=== PATIENT | male | born 1975 | race Caucasian/White ===

== ENCOUNTER → 2016-05-09 | Outpatient (CLI) | payer OTHER ==
[~2016-05-09] MED LIST: ATAZ300C PO; CRFUDL PO; GABA800T PO; LEVE1TAB57 PO; LORA-741 PO; LSN40 PO; LTHSR450 PO; MCRK20 PO; MULT-506 PO; PARO30TA PO; PROP20TA67 PO; PRT40 PO; QUET1TAB34 PO; RALT400T PO; RITO100T PO; TRVHP PO; [UNRECOGNIZED DRUG - CODE] PO
[2016-05-12 17:33] LABS: LSP % CELLS ANALYZED CD4 26 % (30-61); LSP ABSOLUTE CT CD4 642 cells/uL (490-1740); LSP LYMPHOCYTES ABSOLUTE 2479 cells/uL (850-3900)
== END | disposition home or self-care (01) ==
LOC: C.LAB1850 11:16
PROVIDERS: ATTEND Colon & Rectal Surgery
DX: B20 Human immunodeficiency virus [HIV] disease (principal); A63.0 Anogenital (venereal) warts

== ENCOUNTER → 2016-08-14 | Outpatient (CLI) | payer OTHER ==
[2016-08-14 10:35] LABS: BASO % 0.8 %; BASO ABS # 0.07 K/uL (0-0.2); COMPLETE YES; EOS % 1.7 %; HEMATOCRIT 42.4 % (42-52); IG% 0.3 %; LYMPH % 21.4 %; LYMPH ABS # 1.89 K/uL (1.2-3.4); MEAN CELL VOLUME 105.5 fL (80-100); MEAN CORPUSCULAR HEMOGLOBIN 37.8 pg (25-34); MEAN CORPUSCULAR HGB CONC 35.8 g/dl (32-36); MEAN PLATELET VOLUME 9.9 fL (7.4-10.4); MONO % 7.7 %; NEUT % 68.1 %; PLATELET COUNT 260 K/uL (130-400); RED BLOOD COUNT 4.02 M/uL (4.7-6.1); WHITE BLOOD COUNT 8.82 K/uL (4.8-10.8)
[2016-08-14 12:32] LABS: ALT/SGPT 26 U/L (12-78); BLOOD UREA NITROGEN 12 mg/dl (7-18); BUN/CREATININE RATIO 14.9 (10-20); CARBON DIOXIDE 28 mmol/L (21-32); CHLORIDE 103 mmol/L (98-107); CREATININE 0.79 mg/dl (0.60-1.40); GLUCOSE 107 mg/dl (70-99); POTASSIUM 4.7 mmol/L (3.5-5.1); SODIUM 136 mmol/L (136-145)
[2016-08-14 12:35] LABS: ALB/GLOB RATIO 1.3 (0.9-2); ALKALINE PHOSPHATASE 63 U/L (45-117); AST/SGOT 15 U/L (15-37)
[2016-08-14 12:37] LABS: CALCIUM 10.2 mg/dl (8.5-10.1)
[2016-08-21 19:53] LABS: LSP % CELLS ANALYZED CD4 21 % (30-61); LSP ABSOLUTE CT CD4 362 cells/uL (490-1740); LSP LYMPHOCYTES ABSOLUTE 1726 cells/uL (850-3900)
== END | disposition home or self-care (01) ==
LOC: C.LAB1850 09:38
PROVIDERS: ATTEND Internal Medicine Infectious Disease
DX: B20 Human immunodeficiency virus [HIV] disease (principal)

== ENCOUNTER → 2017-04-07 | Outpatient (CLI) | payer OTHER ==
[2017-04-07 10:02] LABS: BASO % 0.3 %; BASO ABS # 0.03 K/uL (0-0.2); COMPLETE YES; EOS % 2.1 %; HEMATOCRIT 41.1 % (42-52); IG% 0.2 %; LYMPH % 20.2 %; LYMPH ABS # 2.38 K/uL (1.2-3.4); MEAN CELL VOLUME 100.2 fL (80-100); MEAN CORPUSCULAR HEMOGLOBIN 35.1 pg (25-34); MONO % 7.2 %; PLATELET COUNT 220 K/uL (130-400); WHITE BLOOD COUNT 11.78 K/uL (4.8-10.8)
[2017-04-07 10:30] LABS: ALT/SGPT 20 U/L (12-78); AST/SGOT 16 U/L (15-37); BLOOD UREA NITROGEN 18 mg/dl (7-18); BUN/CREATININE RATIO 19.7 (10-20); CALCIUM 9.6 mg/dl (8.5-10.1); CARBON DIOXIDE 27 mmol/L (21-32); CHLORIDE 100 mmol/L (98-107); CREATININE 0.92 mg/dl (0.60-1.40); GLUCOSE 86 mg/dl (70-99); POTASSIUM 4.3 mmol/L (3.5-5.1); SODIUM 130 mmol/L (136-145)
[2017-04-07 10:33] LABS: ALB/GLOB RATIO 1.1 (0.9-2); ALKALINE PHOSPHATASE 60 U/L (45-117)
[2017-04-09 21:27] LABS: LSP % CELLS ANALYZED CD4 22 % (30-61); LSP ABSOLUTE CT CD4 466 cells/uL (490-1740); LSP LYMPHOCYTES ABSOLUTE 2149 cells/uL (850-3900)
== END | disposition home or self-care (01) ==
LOC: C.LAB1850 09:22
PROVIDERS: ATTEND Internal Medicine Infectious Disease
DX: B20 Human immunodeficiency virus [HIV] disease (principal)

== ENCOUNTER → 2017-08-11 | Outpatient (CLI) | payer OTHER ==
[2017-08-11 12:20] LABS: BASO % 0.3 %; BASO ABS # 0.04 K/uL (0-0.2); EOS % 1.3 %; EOS ABS # 0.16 K/uL (0-0.5); HEMATOCRIT 43.3 % (42-52); HEMOGLOBIN 15.3 g/dL (14.0-18.0); IG# 0.03 K/uL (0.00-0.02); LYMPH % 14.7 %; LYMPH ABS # 1.78 K/uL (1.2-3.4); MEAN CELL VOLUME 100.2 fL (80-100); MEAN CORPUSCULAR HEMOGLOBIN 35.4 pg (25-34); MEAN CORPUSCULAR HGB CONC 35.3 g/dl (32-36); MONO % 5.9 %; MONO ABS # 0.72 K/uL (0.11-0.59); NEUT % 77.6 %; NEUT ABS # 9.38 K/uL (1.4-6.5); PLATELET COUNT 271 K/uL (130-400); RED CELL DISTRIBUTION WIDTH CV 13.9 % (11.5-14.5); RED CELL DISTRIBUTION WIDTH SD 51.5 fL (36.4-46.3); WHITE BLOOD COUNT 12.11 K/uL (4.8-10.8)
[2017-08-11 12:50] LABS: ALBUMIN 4.3 gm/dl (3.4-5.0); ALT/SGPT 22 U/L (12-78); AST/SGOT 13 U/L (15-37); BLOOD UREA NITROGEN 7 mg/dl (7-18); CALCIUM 9.7 mg/dl (8.5-10.1); CARBON DIOXIDE 27 mmol/L (21-32); CHOLESTEROL 147 mg/dl (0-200); CREATININE 0.95 mg/dl (0.60-1.40); GLUCOSE 101 mg/dl (70-99); POTASSIUM 3.9 mmol/L (3.5-5.1); SODIUM 134 mmol/L (136-145)
[2017-08-11 12:53] LABS: ALKALINE PHOSPHATASE 83 U/L (45-117); LDL CHOLESTEROL CALCULATED 69 mg/dl; TOTAL PROTEIN 8.2 gm/dl (6.4-8.2)
[2017-08-11 12:59] LABS: HEMOGLOBIN A1C 5.5 % (4.5-5.6)
[2017-08-12 21:35] LABS: LSP % CELLS ANALYZED CD4 24 % (30-61); LSP ABSOLUTE CT CD4 427 cells/uL (490-1740)
== END | disposition home or self-care (01) ==
LOC: C.LAB1850 10:08
PROVIDERS: ATTEND Internal Medicine Infectious Disease
DX: B20 Human immunodeficiency virus [HIV] disease (principal); F90.9 Attention-deficit hyperactivity disorder, unspecified type

== ENCOUNTER → 2017-11-17 | Outpatient (CLI) | payer OTHER ==
[~2017-11-17] MED LIST changes: +LISI40TA3 PO; -LSN40 PO; +PANT1TAB4 PO; -PRT40 PO
[2017-11-17 12:36] LABS: BASO % 0.3 %; BASO ABS # 0.03 K/uL (0-0.2); EOS ABS # 0.18 K/uL (0-0.5); HEMATOCRIT 40.8 % (42-52); HEMOGLOBIN 13.6 g/dL (14.0-18.0); IG# 0.01 K/uL (0.00-0.02); LYMPH % 19.8 %; LYMPH ABS # 1.78 K/uL (1.2-3.4); MEAN CELL VOLUME 109.7 fL (80-100); MEAN CORPUSCULAR HEMOGLOBIN 36.6 pg (25-34); MEAN CORPUSCULAR HGB CONC 33.3 g/dl (32-36); MEAN PLATELET VOLUME 9.5 fL (7.4-10.4); MONO % 5.9 %; MONO ABS # 0.53 K/uL (0.11-0.59); NEUT % 71.9 %; NEUT ABS # 6.48 K/uL (1.4-6.5); PLATELET COUNT 311 K/uL (130-400); RED CELL DISTRIBUTION WIDTH CV 15.8 % (11.5-14.5); RED CELL DISTRIBUTION WIDTH SD 63.7 fL (36.4-46.3); WHITE BLOOD COUNT 9.01 K/uL (4.8-10.8)
[2017-11-17 12:58] LABS: ALKALINE PHOSPHATASE 69 U/L (45-117); ALT/SGPT 23 U/L (12-78); AST/SGOT 14 U/L (15-37); BLOOD UREA NITROGEN 6 mg/dl (7-18); CALCIUM 9.6 mg/dl (8.5-10.1); CARBON DIOXIDE 26 mmol/L (21-32); CREATININE 0.98 mg/dl (0.60-1.40); GLUCOSE 124 mg/dl (70-99); POTASSIUM 4.4 mmol/L (3.5-5.1); SODIUM 135 mmol/L (136-145)
[2017-11-20 16:37] LABS: LSP % CELLS ANALYZED CD4 24 % (30-61); LSP ABSOLUTE CT CD4 407 cells/uL (490-1740)
== END | disposition home or self-care (01) ==
LOC: C.LAB1850 10:59
PROVIDERS: ATTEND Internal Medicine Infectious Disease
DX: B20 Human immunodeficiency virus [HIV] disease (principal)

== ENCOUNTER → 2017-11-18 | Outpatient (CLI) | payer OTHER | LOC: C.LABBFT 15:45 | PROVIDERS: ATTEND Internal Medicine Infectious Disease | DX: B20 Human immunodeficiency virus [HIV] disease (principal) ==

== ENCOUNTER → 2017-12-12 | Day surgery (SDC) | payer OTHER ==
[2017-12-08 08:59] VITALS: BMI 21.0
[~2017-12-12] VITALS: Ht 175.3 cm; Wt 65.9 kg
[~2017-12-12] MED LIST changes: +CLON1TAB10 PO; -CRFUDL PO; +CYAN100020 PO; +FLUO40CA8 PO; -GABA800T PO; -LEVE1TAB57 PO; +LIDOCAINE HCL 2% 2 ML VIAL (20MG/ML) ONE; -LISI40TA3 PO; -LORA-741 PO; -MCRK20 PO; +MELATAB2 PO; -MULT-506 PO; -PARO30TA PO; +PROPOFOL IV EMULSION 10 MG/ML 20 ML VIAL ONE; +QUET1TAB11 PO; -QUET1TAB34 PO; +SODIUM CHLORIDE 0.9% 500ML 500 ML IV ONE; +ST J1CAP PO
[2017-12-12 08:16] VITALS: Ht 175.3 cm; Wt 65.9 kg
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
--- NOTE | 2017-12-12 09:34 | Discharge Instructions ---
Endoscopy Patient Instructions Date / Procedure(s) Performed Dec 12, 2017. Colonoscopy, EGD Allergy Information Coded Allergies: Acetaminophen (Verified Adverse Reaction, Unknown, NO TYLENOL DUE TO ABNORMAL LIVER TESTS, 12/12/17) Discharge Date / Findings Dec 12, 2017. EGD: Gastritis s/p biopsies, Esophagitis s/p biopsies Colonoscopy: Random colon biopsies, Questionable condyloma at anal verge s/p biopsies Medication Instructions OK to resume all medications today as prescribed Reported Home Medications Medications Dose Route/Sig Max Daily Dose Days Date Category Melatonin Maximum Strengt (Melatonin) 5 Mg Tab 2 Tab PO HS 12/08/[address] [place] Wort ([place]'s Wort ([place] Perf) 300 Mg Cap 3 Tab PO BID 12/08/17 Reported Prozac (Fluoxetine HCl) 40 Mg Cap 40 Mg PO QAM 12/08/17 Reported Vitamin B12 (Cyanocobalamin) 1,000 Mcg Tab 1 Tab PO DAILY 12/08/17 Reported Klonopin (Clonazepam) 1 Mg Tab 1 Mg PO DAILY PRN 12/08/17 Reported Seroquel (Quetiapine Fumarate) 300 Mg Tab 300 Mg PO HS 12/08/17 Reported Pantoprazole Sodium (Pantoprazole) 40 Mg Tab 40 Mg PO BID 03/02/16 Rx Fluconazole 40 Mg/Ml Susp 100 Mg PO QAM 14 03/02/16 Rx Norvir (Ritonavir) 100 Mg Tab 1 Tab PO HS 09/13/15 Reported [place] (Atazanavir Sulfate) 300 Mg Cap 1 Cap PO HS 06/12/15 Reported [place]ent[place] (Raltegravir Potassium) 400 Mg Tab 400 Mg PO BID 06/12/15 Reported [place] Carbonate ER ([place] Carbonate) 450 Mg Tabcr 450 Mg PO BID 08/28/13 Reported Inderal (Propranolol HCl) 20 Mg Tab 20 Mg PO BID 10/31/08 Reported Truvada 200/300MG (Emtricitabine/Tenofovir) Tab 1 Tab PO HS 10/17/08 Reported Provider Instructions Activity Restrictions - No exercising or heavy lifting for 24 hours. - Do not drink alcohol the day of the procedure. - Do not drive a car or operate machinery until the day after the procedure. - Do not make any important decisions or sign important papers in 24 hours after the procedure. Following Day: - Return to full activity which may include returning to work/school. Diet Start your diet with liquids and light foods (jello, soup, juice, toast). Then eat your usual diet if not nauseated. Treatment For Common After Affects For mild abdominal pain, bloating, or excessive gas: - Rest - Eat lightly - Lie on right side Follow-Up Information Follow-up with DR. OCHOA as scheduled Anesthesia Information What You Should Know You have had a procedure that required some medicine to reduce anxiety and discomfort. This treatment is called moderate sedation. After receiving the treatment, you may be sleepy, but you will be able to breathe on your own. The effects of the treatment may last for several hours. Follow these instructions along with Activity/Diet recommendations noted above: * Do NOT do anything where dizziness or clumsiness would be dangerous. * Rest quietly at home today, then you can be up and about tomorrow. * Have a responsible person stay with you the rest of today. * You may have had an I.V. today. If so, you may take the dressing off later today. Recommendations Call your doctor if: * Trouble breathing * Continuous vomiting for more than 24 hours * Temperature above 101 degrees * Severe abdominal pain or bloating * Pain not relieved by pain medicine ordered * There is increased drainage or redness from any incision * A large amount of rectal bleeding greater than 2-3 tablespoons. (If you had a polyp/s removed or have hemorrhoids, a small amount of blood - from the rectum is to be expected.) * You have any unanswered questions or concerns. IN THE EVENT OF A SERIOUS EMERGENCY, GO TO THE NEAREST EMERGENCY ROOM Your discharge instructions were prepared by provider Giovany Johnson. Patient Instructions Signature Page Joe Kearney Patient (or Guardian) Signature/Date: I have read and understand the instructions given to me by my caregivers. Caregiver/RN/Doctor Signature/Date: The above-named patient and/or guardian has received patient instructions on this date. + Original Patient Signature Page (only) stays with chart. Please make copy for patient.
--- NOTE | 2017-12-12 09:38 | GI REPORT ---
Patient Name: Joe Kearney Procedure Date: 12/12/2017 8:48 AM Date of : 1975 Admit Type: Outpatient Age: 42 Gender: Male Attending MD: Giovany Johnson DO Procedure: Upper GI endoscopy Providers: Giovany Johnson DO Referring MD: Yoan Valente Indications: Heartburn, Follow-up of esophagitis Medicines: Monitored Anesthesia Care Complications: No immediate complications. Estimated Blood Loss: Estimated blood loss: none. Procedure: Pre-Anesthesia Assessment: - Prior to the procedure, a History and Physical was performed, and patient medications and allergies were reviewed. The patient's tolerance of previous anesthesia was also reviewed. The risks and benefits of the procedure and the sedation options and risks were discussed with the patient. All questions were answered, and informed consent was obtained. Prior Anticoagulants: The patient has taken no previous anticoagulant or antiplatelet agents. ASA Grade Assessment: III - A patient with severe systemic disease. After reviewing the risks and benefits, the patient was deemed in satisfactory condition to undergo the procedure. After obtaining informed consent, the endoscope was passed under direct vision. Throughout the procedure, the patient's blood pressure, pulse, and oxygen saturations were monitored continuously. The scope was introduced through the mouth, and advanced to the second part of duodenum. The upper GI endoscopy was accomplished without difficulty. The patient tolerated the procedure well. Findings: Mildly severe esophagitis with no bleeding was found. Biopsies were taken with a cold forceps for histology. Localized mild inflammation characterized by erythema was found in the gastric antrum. Biopsies were taken with a cold forceps for histology. The examined duodenum was normal. Impression: - Mildly severe chronic esophagitis. Biopsied. - Gastritis. Biopsied. - Normal examined duodenum. Recommendation: - Resume previous diet. - Continue present medications. - Await pathology results. - Return to primary care physician as previously scheduled. Giovany Johnson DO 12/12/2017 9:37:45 AM This report has been signed electronically. Note Initiated On: 12/12/2017 8:48 AM Number of Addenda: 0 I attest to the content of the Intraoperative Record and orders documented therein, exceptions below {[id number]}
--- NOTE | 2017-12-12 09:41 | GI REPORT ---
Patient Name: Joe Kearney Procedure Date: 12/12/2017 8:56 AM Date of : 1975 Admit Type: Outpatient Age: 42 Gender: Male Attending MD: Giovany Johnson DO Procedure: Colonoscopy Providers: Giovany Johnson DO Referring MD: Yoan Valente Indications: Chronic diarrhea Medicines: Monitored Anesthesia Care Complications: No immediate complications. Estimated Blood Loss: Estimated blood loss: none. Procedure: Pre-Anesthesia Assessment: - Prior to the procedure, a History and Physical was performed, and patient medications and allergies were reviewed. The patient's tolerance of previous anesthesia was also reviewed. The risks and benefits of the procedure and the sedation options and risks were discussed with the patient. All questions were answered, and informed consent was obtained. Prior Anticoagulants: The patient has taken no previous anticoagulant or antiplatelet agents. ASA Grade Assessment: III - A patient with severe systemic disease. After reviewing the risks and benefits, the patient was deemed in satisfactory condition to undergo the procedure. After I obtained informed consent, the scope was passed under direct vision. Throughout the procedure, the patient's blood pressure, pulse, and oxygen saturations were monitored continuously. The scope was introduced through the anus and advanced to the terminal ileum. The colonoscopy was performed without difficulty. The patient tolerated the procedure well. The quality of the bowel preparation was good. The terminal ileum, ileocecal valve, appendiceal orifice, and rectum were photographed. Findings: The perianal and digital rectal examinations were normal. Few 5 mm condylomata were found. This was biopsied with a cold forceps for histology. Several random biopsies were obtained with cold forceps for histology in the entire colon. The exam was otherwise without abnormality on direct and retroflexion views. Impression: - Condylomata. Biopsied. - The examination was otherwise normal on direct and retroflexion views. - Several random biopsies were obtained in the entire colon. Recommendation: - Resume previous diet. - Continue present medications. - Await pathology results. - Return to primary care physician as previously scheduled. Giovany Johnson DO 12/12/2017 9:40:52 AM This report has been signed electronically. Note Initiated On: 12/12/2017 8:56 AM Number of Addenda: 0 I attest to the content of the Intraoperative Record and orders documented therein, exceptions below {[id number]}
[2017-12-12 09:45] VITALS: BP 125/88; PULSE 68; O2SAT 99
--- NOTE | 2017-12-12 09:51 | Anesthesiology Progress Note ---
Anesthesia Post Op Note Date & Time Dec 12, 2017 at 09:51 Vital Signs Pain Intensity: 0 Vital Signs Past 12 Hours Date Time Temp Pulse Resp B/P (MAP) Pulse Ox O2 Delivery O2 Flow Rate FiO2 12/12/17 09:30 69 20 110/77 (88) 98 Room Air 12/12/17 09:15 36.7 67 16 92/60 (71) 98 Room Air 12/12/17 08:24 36.4 72 18 117/84 (95) 97 Room Air Notes Mental Status: alert / awake / arousable, participated in evaluation Pt Amnestic to Procedure: Yes Nausea / Vomiting: adequately controlled Pain: adequately controlled Airway Patency, RR, SpO2: stable & adequate BP & HR: stable & adequate Hydration State: stable & adequate Anesthetic Complications: no major complications apparent
== END | disposition home or self-care (01) ==
LOC: C.GI 07:47
PROVIDERS: ATTEND Internal Medicine
DX: K62.82 Dysplasia of anus (principal); K21.0 Gastro-esophageal reflux disease with esophagitis; R19.7 Diarrhea, unspecified; D75.9 Disease of blood and blood-forming organs, unspecified; J45.909 Unspecified asthma, uncomplicated; I10 Essential (primary) hypertension; F17.200 Nicotine dependence, unspecified, uncomplicated; E78.00 Pure hypercholesterolemia, unspecified; F31.9 Bipolar disorder, unspecified; F10.10 Alcohol abuse, uncomplicated; Z88.6 Allergy status to analgesic agent; Z21 Asymptomatic human immunodeficiency virus [HIV] infection status; K29.70 Gastritis, unspecified, without bleeding

== ENCOUNTER 2018-07-07 05:13 | Inpatient (IN) ==
--- NOTE | 2018-06-23 19:49 | PAT Medication Instructions ---
Medication Instructions Date of Service June 24, 2018 Home Medications Medication Instructions Recorded clonazepam 1 mg PO DAILY PRN #0 tab 03/17/18 dolutegravir 50 mg PO DIRECTED emtricitabine-tenofovir (TDF) 1 tab PO QAM lithium carbonate 450 mg PO BID melatonin 10 mg PO HS pantoprazole 40 mg PO QAM propranolol 20 mg PO BID quetiapine 300 mg PO HS ritonavir 100 mg PO QAM clonazepam 1 mg PO DAILY NEEDED Take morning of surgery With a small sip of water, OTHERWISE NOTHING TO EAT OR DRINK AFTER MIDNIGHT: clonazepam 1 mg PO DAILY NEEDED ritonavir 100 mg PO QAM pantoprazole 40 mg PO QAM propranolol 20 mg PO BID emtricitabine-tenofovir (TDF) 1 tab PO QAM lithium carbonate 450 mg PO BID Take evening before surgery propranolol 20 mg PO BID quetiapine 300 mg PO HS lithium carbonate 450 mg PO BID melatonin 10 mg PO HS Other Notes If you have any questions please call us at [phone] or [phone] or [phone] or [phone]
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
--- NOTE | 2018-06-24 09:44 | XRay Report ---
XR chest Pre-admission PA/Lat CLINICAL HISTORY: pat preoperative evaluation COMPARISON STUDY: 03/15/2018 FINDINGS: The bones soft tissues and hemidiaphragms are normal. The cardiomediastinal silhouette is n ormal. The lungs are clear. The pulmonary vasculature is normal. Mild emphysematous change IMPRESSION: Negative chest. Mild emphysematous change The above report was generated using voice recognition software. It may contain grammatical, syntax or spelling errors. Electronically signed by: Joe Hong M.D. 06/24/2018 9:43 AM
[2018-06-24 09:47] LABS: Basophils # (auto) 0.03 K/uL (0-0.2); Basophils % (auto) 0.7 %; Eosinophils # (auto) 0.19 K/uL (0-0.5); Eosinophils % (auto) 4.4 %; Hematocrit (blood only) 39.6 % (42-52); Hemoglobin 13.5 g/dL (14.0-18.0); Immature Granulocytes # (auto) 0.01 K/uL (0.00-0.02); Immature Granulocytes % (auto) 0.2 %; Lymphocytes # (auto) 1.84 K/uL (1.2-3.4); Lymphocytes % (auto) 42.5 %; Mean Corpuscular Hgb Conc 34.1 g/dL (32-36); Mean Corpuscular Volume 109.4 fL (80-100); Mean Platelet Volume 9.8 fL (7.4-10.4); Monocytes # (auto) 0.35 K/uL (0.11-0.59); Monocytes % (auto) 8.1 %; Neutrophils # (auto) 1.91 K/uL (1.4-6.5); Neutrophils % (auto) 44.1 %; Platelet Count 301 K/uL (130-400); RDW Coefficient of Variation 13.5 % (11.5-14.5); RDW Standard Deviation 54.2 fL (36.4-46.3); Red Blood Count 3.62 M/uL (4.7-6.1); White Blood Count 4.33 K/uL (4.8-10.8)
[2018-06-24 09:58] LABS: BUN Creatinine Ratio 6.6 (10-20); Blood Urea Nitrogen 6 mg/dl (7-18); C Reactive Protein < 0.29 mg/dl (0-0.29); Calcium 9.5 mg/dl (8.5-10.1); Carbon Dioxide 31 mmol/L (21-32); Chloride 105 mmol/L (98-107); Creatinine Clr Calc Pharmacy 102.4 ml/min; Est GFR (African American) 116.1; Est GFR (Non-African American) 100.2; Glucose 101 mg/dl (70-99); Potassium 4.2 mmol/L (3.5-5.1); Sodium 138 mmol/L (136-145)
[2018-06-24 10:09] LABS: Partial Thromboplastin Ratio 1.1; Partial Thromboplastin Time 28.6 Seconds (21.0-31.0); Prothrombin Time 9.8 Seconds (9.0-12.0)
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
[~2018-07-07 05:13] MED LIST changes: -ATAZ300C PO; -CLON1TAB10 PO; -CYAN100020 PO; -FLUO40CA8 PO; -LIDOCAINE HCL 2% 2 ML VIAL (20MG/ML) ONE; -LTHSR450 PO; -MELATAB2 PO; -PANT1TAB4 PO; -PROP20TA67 PO; -PROPOFOL IV EMULSION 10 MG/ML 20 ML VIAL ONE; -QUET1TAB11 PO; -RALT400T PO; -RITO100T PO; -SODIUM CHLORIDE 0.9% 500ML 500 ML IV ONE; -ST J1CAP PO; -TRVHP PO; -[UNRECOGNIZED DRUG - CODE] PO; +[UNRECOGNIZED DRUG - REMARK] SCH
[2018-07-07] MEDS ORDERED: LR 500ML BOLUS, THEN 15ML/HR IV SCH (06:00)
[2018-07-07] MEDS ORDERED: ACETAMINOPHEN 500 MG TAB PO SCH (06:00)
[2018-07-07] MEDS ORDERED: METOCLOPRAMIDE HCL 10 MG TABLET PO SCH (06:00)
[2018-07-07] MEDS ORDERED: LR 60ML/HR IV SCH (06:00)
[2018-07-07] MEDS ORDERED: GABAPENTIN 300 MG x 3 PO SCH (06:00)
[2018-07-07] MEDS ORDERED: TRANEXAMIC ACID 1,000 MG **IV Pre-op IV SCH (06:00)
[2018-07-07] MEDS ORDERED: FAMOTIDINE 20 MG TAB PO SCH (06:00)
[2018-07-07] MEDS ORDERED: CEFAZOLIN 2000MG 2,000 MG/15 ML SYR IV SCH (06:00)
[2018-07-07] MEDS ORDERED: SCOPOLAMINE 1.5 MG TDSY TD SCH (06:00)
[2018-07-07] MEDS ORDERED: LIDOCAINE HCL 2% 2 ML VIAL/AMP(20MG/ML) INFIL ONE (06:28)
[2018-07-07] MEDS ORDERED: PROPOFOL IV EMULSION 10 MG/ML 20 ML VIAL IV ONE ×3 (06:28→08:07)
[2018-07-07] MEDS ORDERED: MIDAZOLAM HCL 1 MG/ML 2ML VIAL ONE (06:28)
[2018-07-07] MEDS ORDERED: KETAMINE HCL INJ 50 MG/ML 10 ML VIAL ONE (06:28)
[2018-07-07] MEDS ORDERED: fentaNYL citrate 100 MCG/2 ML VIAL ONE (06:28)
[2018-07-07] MEDS ORDERED: BUPIVACAINE 0.5 % 5 MG/1 ML PF 10ML VIAL ONE (06:31)
[2018-07-07] MEDS ORDERED: BACITRACIN INJ 50,000 UNIT VIAL ONE (06:36)
[2018-07-07] MEDS ORDERED: BUPIVACAINE/EPINEPHRINE 0.5% MPF 1:200,000 30 ML VIAL ONE (06:36)
[2018-07-07] MEDS ORDERED: MoRPHine SULFATE PF 1 MG/ML 10 ML AMP/VIAL ONE (06:45)
--- NOTE | 2018-07-07 06:51 | History & Physical Bridge Note ---
Date of Service July 07, 2018 History & Physical Bridge Note I have examined the patient, reviewed the History & Physical and in the interval since the performance of the History & Physical I have noted the following changes of clinical significance: no changes noted
[2018-07-07] MEDS ORDERED: NALOXONE HCL 0.4 MG/1 ML VIAL/CARP IV PRN ×2 (07:48→10:01)
[2018-07-07] MEDS ORDERED: ATROPINE SULFATE 0.1 MG/ML 10ML SYR IV PRN (07:48)
[2018-07-07] MEDS ORDERED: DiphenhydrAMINE HCL 50 MG/ML VIAL IV PRN (07:48)
[2018-07-07] MEDS ORDERED: NALOXONE HCL 1 MG in SODIUM CHLORIDE 0.9% 1000ML 1,000 ML IV PRN (07:48)
[2018-07-07] MEDS ORDERED: NALBUPHINE HCL INJ 10 MG/ML AMP IV PRN (07:48)
[2018-07-07] MEDS ORDERED: ePHEDrine sulfate 50 MG/ML AMP IV PRN ×2 (07:48)
[2018-07-07] MEDS ORDERED: MoRPHine SULFATE PF 1 MG/ML 10 ML AMP/VIAL INT SPINAL ONE (07:48)
[2018-07-07] MEDS ORDERED: NALOXONE HCL 0.08 MG in SYRINGE 1.8 ML IV PRN (07:48)
[2018-07-07] MEDS ORDERED: LACTATED RINGER'S 500 ML IV PRN (07:48)
[2018-07-07] MEDS ORDERED: NO NARCOTICS OR SEDATIVES SCH (08:00)
[2018-07-07] MEDS ORDERED: SODIUM CHLORIDE 0.9% 1000ML 1,000 ML IV SCH (08:00)
[2018-07-07] MEDS ORDERED: ePHEDrine sulfate 50 MG/ML SYR ONE (08:02)
--- NOTE | 2018-07-07 08:31 | Post Operative Brief Note ---
Immediate Post Op Note v1 Date of Surgery July 07, 2018 Pre & Post Diagnosis Operation Date: 07/07/18 07:00 Pre-Op Diagnosis: Right Hip Avascular Necrosis Post-Op Diagnosis: Right Hip Avascular Necrosis Procedure Operation Date: 07/07/18 07:00 Actual Procedures p Right Total Hip Arthroplasty--uncemented(Right) - Baudilio Álvarez MD Surgeon Baudilio Álvarez MD Orchid Hand Khalida, PAC Estimated Blood Loss 200 Findings Consistent with Post-Op Diagnosis Fluids 1300 cc Specimens Right Femoral Head Drains Alcocer Catheter (16 Sudanese Alcocer catheter inserted by Lyndon Gaxiola PA-C without difficulty, clear yellow urine obtained, output to be monitored by anesthesia) Anesthesia Type Spinal MAC Complications none Disposition Accompanied Patient To Recovery: Yes Disposition: Recovery Room
--- NOTE | 2018-07-07 09:01 | XRay Report ---
XR hip 1V RT w pelvis CLINICAL HISTORY: IN PACU - A/P PELVIS and LATERAL HIP postoperative COMPARISON: 01/16/2018 DISCUSSION: Interval placement of a total right hip arthroplasty. Good contact between prosthetic and underlying bone. Expected soft tissue postoperative change expected postoperative soft tissue change IMPRESSION: Anatomic alignment post total right hip arthroplasty. The above report was generated using voice recognition software. It may contain grammatical, syntax or spelling errors. Electronically signed by: Joe Hong M.D. 07/07/2018 9:00 AM
--- NOTE | 2018-07-07 09:17 | Anesthesiology Progress Note ---
Date of Service July 07, 2018 Anesthesia Post Procedure Vital Signs Vital Signs: Temp Pulse Pulse Resp BP BP Pulse Ox 07/07/18 09:12 84 19 98 07/07/18 09:10 84 17 99/61 L 99 07/07/18 09:09 83 17 103/61 98 07/07/18 09:05 84 18 96/67 L 99 07/07/18 09:01 83 20 112/65 99 07/07/18 09:00 85 27 H 100 07/07/18 08:55 36.9 C 83 87 15 117/66 117/66 100 07/07/18 08:52 83 20 99 07/07/18 08:51 85 24 106/73 99 07/07/18 08:50 81 15 99 07/07/18 08:46 86 22 119/79 100 07/07/18 08:45 81 29 H 100 07/07/18 08:41 79 22 132/89 100 07/07/18 08:40 79 17 100 07/07/18 08:35 80 16 121/82 100 07/07/18 08:31 78 19 128/84 100 07/07/18 08:30 36.3 C L 80 12 128/84 100 07/07/18 05:55 36.8 C 81 18 128/71 97 Pain Intensity Right Hip: Pain Intensity: 0 Notes Mental Status: alert / awake / arousable and participated in evaluation Patient Amnestic to Procedure: Yes Nausea / Vomiting: adequately controlled Pain: adequately controlled Airway Patency, RR, SpO2: stable & adequate BP & HR: stable & adequate Hydration State: stable & adequate Neuraxial Anesthesia: was administered and sensory block is resolving Anesthetic Complications: no major complications apparent
[2018-07-07] MEDS ORDERED: clonazePAM 1 MG TAB PO PRN (10:01)
[2018-07-07] MEDS ORDERED: ONDANSETRON INJ 2 MG/ML 2 ML VIAL IV PRN (10:01)
[2018-07-07] MEDS ORDERED: MAGNESIUM HYDROXIDE SUSP 30 ML UDC PO PRN (10:01)
[2018-07-07] MEDS ORDERED: METOCLOPRAMIDE HCL INJ 5 MG/ML 2 ML VIAL IV PRN (10:01)
[2018-07-07] MEDS ORDERED: chlordiazePOXIDE HCl 25 MG CAP PO PRN (10:01)
[2018-07-07] MEDS ORDERED: EMTRICITABINE/TENOFOVIR TAB PO SCH (10:01)
[2018-07-07] MEDS ORDERED: BISACODYL 10 MG SUPP PR PRN (10:01)
[2018-07-07] MEDS ORDERED: OXYCODONE HCL IR 5 MG TAB (IMMEDIATE RELEASE) PO PRN (10:01)
[2018-07-07] MEDS ORDERED: HYDROmorphone INJ 0.5 MG/0.5 ML SYR IV PRN ×2 (10:01→15:31)
[2018-07-07] MEDS ORDERED: TAMSULOSIN HCL 0.4 MG CAP PO PRN (10:01)
[2018-07-07] MEDS ORDERED: ALUMINUM/MAGNESIUM SUSP 30 ML UDC PO PRN (10:01)
--- NOTE | 2018-07-07 10:20 | Operative Report ---
DATE OF OPERATION: 07/07/2018 SURGEON: Baudilio Álvarez MD SHIPPING AND RECEIVING SPECIALIST: ADA Hamilton PREOPERATIVE DIAGNOSIS: Right hip avascular necrosis with collapse. POSTOPERATIVE DIAGNOSIS: Right hip avascular necrosis with collapse. PROCEDURE PERFORMED: Right uncemented ceramic on highly cross-linked polyethylene total hip arthroplasty. COMPLICATIONS: None. ESTIMATED BLOOD LOSS: 200 mL. FLUID REPLACEMENT: 1300 mL of crystalloid fluid replacement. ANESTHESIA: Spinal. DRAINS: None. SPECIMENS: Right femoral head sent for pathology. OPERATIVE INDICATIONS: The patient is a 43-year-old gentleman with a history of significant alcohol abuse as well as HIV positive, who has about a 3-year history of right hip pain. It has got significantly worse over the past year. He has been through extensive conservative treatment. X-rays and MRI showed avascular necrosis with collapse and large hip joint effusion. He failed conservative care. He elected to proceed with total hip arthroplasty. OPERATIVE FINDINGS: Operative findings were significant joint effusion. He did have an obvious collapse of the femoral head. Not much in the way of osteophyte formation. OPERATIVE IMPLANTS: Operative implants consisted of: 1. Biomet G7 size 54 mm acetabular shell. 2. 6.5 cancellous acetabular screws, 1 at 35 mm in length and 1 at 25 mm in length. 3. An apex hole eliminator. 4. A highly cross-linked polyethylene liner with 54 mm outer diameter, 36 mm inner diameter. 5. DePuy Corail size 10 KLA femoral stem. 6. A +5/36 mm ceramic articular ball. OPERATIVE PROCEDURE: The patient was taken to the operating room, identified and placed on the operating table in supine position. All contact areas were appropriately padded. IV antibiotics were provided by anesthesia team. A spinal anesthetic had been implemented in the holding area. Alcocer catheter was placed in sterile fashion. The patient was then placed in the left lateral decubitus position. An axillary roll was placed. [facility] hip positioner was used for positioning. The right hip and leg were then prepped and draped in usual sterile fashion. A posterolateral approach to the right hip was then performed through a curvilinear incision centered over the greater trochanter. Sharp dissection was carried through the subcutaneous tissue down to the level of the IT band and gluteal fascia. The IT band and gluteal fascia were then incised longitudinally in line with skin incision. The underlying greater trochanteric bursa was excised. The piriformis and external rotators were tagged and taken off the posterior aspect of the hip joint capsule. Great care was taken throughout the procedure to protect the sciatic nerve at all times. Posterior capsulotomy was then performed. The capsule was fairly adherent to the femoral head and neck. The hip was internally rotated and dislocated. Femoral neck osteotomy cut was made with the final cut about 10 mm above the lesser trochanter. Femoral head was removed and sent for pathology. The femur was retracted anteriorly. Attention was then drawn to the acetabulum. The acetabular labrum was excised. The pulvinar fat was excised. I also used a curette to remove some of the articular cartilage. I then reamed beginning with a size 49 and progressing up to 53. A 54 mm Biomet G7 acetabular shell was then placed in about 40 degrees of lateral opening and 20 degrees of anteversion. It was fixed with two 6.5 cancellous acetabular screws. A trial liner was placed. Attention was then drawn to the femur. The proximal femur was entered with cookie cutter followed by canal finder. I then broached beginning with a size 8 and progressing up to a 10. We got excellent fit. Calcar reamer was used to smoothen off the calcar. I then trialed the hip and the +5 articular ball seemed to recreate leg lengths equal and created appropriate soft tissue tension. The hip was fully stable in full extension and external rotation and flexion to 90 degrees and internal rotation to [address] I elected to place these implants. All trial implants were removed. An apex hole eliminator was placed. Highly cross-linked polyethylene liner was placed. A DePuy Corail size 10 KLA femoral stem was impacted in position. A +5/36 mm ceramic articular ball was placed. Hip was located and once again found to be stable. Attention was then drawn toward closing. The wound was irrigated with copious amounts of pulsatile lavage solution. I did inject locally with 60 mL of 0.5% Marcaine with epinephrine. The posterior capsule and external rotators were then repaired through drill holes in the posterior trochanter with #2 Ti-Cron suture. The IT band and gluteal fascia were then closed in 1-0 PDS suture in running fashion. Subcutaneous tissue was then closed with a combination of #1 Vicryl suture and 2-0 Dexon suture in a buried interrupted fashion. The skin was then closed with skin rachel. Leg was then cleaned and dried and a sterile dressing of Xeroform, 4 x 4's, ABD pad and foam tape was applied. The patient then transferred to the recovery room in stable condition. The patient tolerated the procedure well with no complication. All needle and sponge counts were correct at the end of the operation. I attest to the content of the Intraoperative Record and any orders documented therein. Any exception s are noted below.
[2018-07-07] MEDS: KETOROLAC 30 MG/ML VIAL IV SCH ×3 (10:40→22:09)
[2018-07-07] MEDS: SODIUM CHLORIDE 0.9% 1000ML 1,000 ML IV SCH ×2 (10:40→21:58)
[2018-07-07] MEDS: PROPRANOLOL HCL 20 MG TAB PO SCH ×2 (11:09→22:04)
[2018-07-07] MEDS: ASPIRIN 81 MG ECTAB PO SCH ×2 (11:09→22:00)
[2018-07-07] MEDS: MULTIVITAMIN TAB PO SCH (11:09)
[2018-07-07] MEDS: PANTOprazole 40 MG TAB PO SCH (11:42)
[2018-07-07] MEDS: FOLIC ACID 1 MG TAB PO SCH (11:43)
[2018-07-07] MEDS: NICOTINE 14 MG/24 HR PATCH TD SCH (11:43)
[2018-07-07] MEDS: THIAMINE HCL 100 MG TAB PO SCH (11:44)
[2018-07-07] MEDS: TAPENTADOL HCL ER 50 MG TABCR PO SCH (11:51)
[2018-07-07] MEDS: DOCUSATE SODIUM 100 MG CAP PO SCH ×2 (13:07→22:09)
--- NOTE | 2018-07-07 13:09 | Progress Note ---
DATE: 07/07/2018 SUBJECTIVE: A 43-year-old gentleman postop from a right hip replacement. Just starting to have some incisional type pain. Pain is controlled. No chest pain or shortness of breath. Not feeling dizzy or lightheaded. OBJECTIVE: VITAL SIGNS: Temperature 36.3. Vital signs stable. GENERAL: Physical examination reveals a healthy, pleasant, middle-aged male, sitting up in his bed and looks pretty comfortable. LUNGS: Clear to auscultation. HEART: Regular rate and rhythm. ABDOMEN: Soft, nontender, nondistended. EXTREMITIES: Grossly neurovascularly intact except as follows: Examination of the right lower extremity and hip reveals the dressing to be clean, dry and intact. Leg lengths were equal. Hip is located. Thigh is soft and supple. He is neurologically intact. He can dorsiflex and plantarflex his foot appropriately. X-RAYS: X-rays of the right hip from recovery room reviewed. It shows right uncemented total hip arthroplasty. Components looked to be in good position. No signs of problems. ASSESSMENT: A 43-year-old gentleman with HIV positive and history of alcohol abuse, postop from a right hip replacement. His pain is controlled. He is neurologically intact. PLAN: 1. DVT prophylaxis including thigh-high TEDs, SCDs, and aspirin twice a day. 2. PT/OT. Weight bear as tolerated. Right total hip protocol. 3. Pain control, doing well with current pain regimen. 4. IV antibiotics x24 hours. 5. Alcohol history. We will put him on some DVT prophylaxis and use Librium if needed for anxiety. 6. Smoking history. We will put him on a nicotine patch. 7. Disposition: He is planning to be discharged home with some home health once adequately recovered.
[2018-07-07] MEDS: LITHIUM CARBONATE 450 MG TABCR PO SCH ×2 (13:20→22:01)
[2018-07-07] MEDS ORDERED: TRANEXAMIC ACID 1,000 MG in 0.9 % SODIUM CHLORIDE 100 ML IV SCH (14:32)
[2018-07-07] MEDS: CEFAZOLIN 1000MG 1,000 MG/7.5 ML SYR IV SCH ×2 (15:06→23:04)
[2018-07-07] MEDS: CHECK SCOPOLAMINE PATCH PLACEMENT SCH ×2 (15:06→23:04)
[2018-07-07] MEDS: MELATONIN - ORDER AWAITING ACTION SCH ×2 (15:21→23:04)
[2018-07-07] MEDS ORDERED: MoRPHine SULFATE 2 MG/ML CARP IV PRN (15:31)
[2018-07-07] MEDS ORDERED: MEPERIDINE HCL 25 MG/ML CARP IV PRN (15:31)
[2018-07-07] MEDS ORDERED: KETOROLAC 30 MG/ML VIAL IV PRN (15:31)
[2018-07-07] MEDS: DOLUTEGRAVIR SODIUM PO SCH (16:27)
[2018-07-07] MEDS: RITONAVIR PO SCH (16:27)
[2018-07-07] MEDS: TENOFOVIR PO SCH (16:28)
[2018-07-07] MEDS: ATAZANAVIR PO SCH (16:28)
[2018-07-07] MEDS: EMTRICITABINE PO SCH (16:28)
[2018-07-07] MEDS: ASCORBIC ACID 500 MG TAB PO SCH (16:35)
[2018-07-07] MEDS: FERROUS GLUCONATE 324 MG TAB PO SCH (16:35)
[2018-07-07] MEDS ORDERED: SENNA 8.6 MG TAB PO SCH (21:00)
[2018-07-07] MEDS ORDERED: QUETIAPINE FUMARATE 300 MG TABLET PO SCH (21:00)
[2018-07-08] MEDS ORDERED: DC INTRASPINAL MORPHINE ONE (01:48)
[2018-07-08] MEDS: KETOROLAC 30 MG/ML VIAL IV SCH ×2 (03:02→09:50)
[2018-07-08 05:57] LABS: Basophils # (auto) 0.01 K/uL (0-0.2); Basophils % (auto) 0.1 %; Eosinophils # (auto) 0.12 K/uL (0-0.5); Eosinophils % (auto) 1.3 %; Hematocrit (blood only) 25.2 % (42-52); Hemoglobin 8.8 g/dL (14.0-18.0); Immature Granulocytes # (auto) 0.02 K/uL (0.00-0.02); Immature Granulocytes % (auto) 0.2 %; Lymphocytes # (auto) 1.87 K/uL (1.2-3.4); Lymphocytes % (auto) 20.5 %; Mean Corpuscular Hgb Conc 34.9 g/dL (32-36); Mean Corpuscular Volume 105.9 fL (80-100); Mean Platelet Volume 9.1 fL (7.4-10.4); Monocytes # (auto) 0.86 K/uL (0.11-0.59); Monocytes % (auto) 9.4 %; Neutrophils # (auto) 6.25 K/uL (1.4-6.5); Neutrophils % (auto) 68.5 %; Platelet Count 219 K/uL (130-400); RDW Coefficient of Variation 13.9 % (11.5-14.5); RDW Standard Deviation 53.4 fL (36.4-46.3); Red Blood Count 2.38 M/uL (4.7-6.1); White Blood Count 9.13 K/uL (4.8-10.8)
[2018-07-08 06:31] LABS: BUN Creatinine Ratio 17.9 (10-20); Calcium 8.5 mg/dl (8.5-10.1); Creatinine Clr Calc Pharmacy 97.2 ml/min; Est GFR (Non-African American) 94.1; Potassium 4.2 mmol/L (3.5-5.1)
[2018-07-08 06:40] LABS: RBC Morphology Unremarkable
[2018-07-08] MEDS: MELATONIN - ORDER AWAITING ACTION SCH (06:56)
--- NOTE | 2018-07-08 08:18 | Anesthesiology Progress Note ---
Date of Service July 08, 2018 Anesthesia Post Procedure Vital Signs Vital Signs: Temp Pulse Pulse Pulse Resp BP BP 07/08/18 07:00 37.3 C 87 16 102/57 L 07/08/18 03:10 37.2 C 92 H 16 98/61 L 07/08/18 00:20 14 07/07/18 23:26 37.4 C 97 H 16 109/65 07/07/18 21:50 102 H 131/80 07/07/18 21:14 18 07/07/18 20:20 37.5 C 100 H 18 133/77 07/07/18 19:20 18 07/07/18 18:20 18 07/07/18 17:20 18 07/07/18 16:20 18 07/07/18 15:09 36.7 C 83 18 122/75 07/07/18 14:20 18 07/07/18 13:26 83 07/07/18 12:30 86 16 104/70 07/07/18 11:20 36.3 C L 81 16 102/67 07/07/18 10:20 90 16 107/68 07/07/18 09:50 80 16 104/64 07/07/18 09:36 36.3 C L 81 16 104/64 07/07/18 09:12 84 19 07/07/18 09:10 84 17 99/61 L 07/07/18 09:09 83 17 103/61 07/07/18 09:05 84 18 96/67 L 07/07/18 09:01 83 20 112/65 07/07/18 09:00 85 27 H 07/07/18 08:55 36.9 C 83 87 15 117/66 117/66 07/07/18 08:52 83 20 07/07/18 08:51 85 24 106/73 07/07/18 08:50 81 15 07/07/18 08:46 86 22 119/79 07/07/18 08:45 81 29 H 07/07/18 08:41 79 22 132/89 07/07/18 08:40 79 17 07/07/18 08:35 80 16 121/82 07/07/18 08:31 78 19 128/84 07/07/18 08:30 36.3 C L 80 12 128/84 Pulse Ox 07/08/18 07:00 96 07/08/18 03:10 97 07/08/18 00:20 97 07/07/18 23:26 95 07/07/18 21:50 07/07/18 21:14 96 07/07/18 20:20 98 07/07/18 19:20 96 07/07/18 18:20 96 07/07/18 17:20 99 07/07/18 16:20 96 07/07/18 15:09 96 07/07/18 14:20 96 07/07/18 13:26 96 07/07/18 12:30 95 07/07/18 11:20 97 07/07/18 10:20 96 07/07/18 09:50 98 07/07/18 09:36 98 07/07/18 09:12 98 07/07/18 09:10 99 07/07/18 09:09 98 07/07/18 09:05 99 07/07/18 09:01 99 07/07/18 09:00 100 07/07/18 08:55 100 07/07/18 08:52 99 07/07/18 08:51 99 07/07/18 08:50 99 07/07/18 08:46 100 07/07/18 08:45 100 07/07/18 08:41 100 07/07/18 08:40 100 07/07/18 08:35 100 07/07/18 08:31 100 07/07/18 08:30 100 Pain Intensity Right Hip: Pain Intensity: 2 Notes Mental Status: alert / awake / arousable Patient Amnestic to Procedure: Yes Nausea / Vomiting: adequately controlled Pain: adequately controlled Airway Patency, RR, SpO2: stable & adequate BP & HR: stable & adequate Hydration State: stable & adequate Neuraxial Anesthesia: was administered and sensory block resolved Anesthetic Complications: no major complications apparent
[2018-07-08] MEDS: LITHIUM CARBONATE 450 MG TABCR PO SCH (08:51)
[2018-07-08] MEDS: PANTOprazole 40 MG TAB PO SCH (08:51)
[2018-07-08] MEDS: MULTIVITAMIN TAB PO SCH (08:52)
[2018-07-08] MEDS: PROPRANOLOL HCL 20 MG TAB PO SCH (08:52)
[2018-07-08] MEDS: THIAMINE HCL 100 MG TAB PO SCH (08:52)
[2018-07-08] MEDS: TENOFOVIR PO SCH ×2 (08:53→09:16)
[2018-07-08] MEDS: FERROUS GLUCONATE 324 MG TAB PO SCH (08:53)
[2018-07-08] MEDS: EMTRICITABINE PO SCH ×2 (08:53→09:16)
[2018-07-08] MEDS: ASPIRIN 81 MG ECTAB PO SCH (08:53)
[2018-07-08] MEDS: ASCORBIC ACID 500 MG TAB PO SCH (08:53)
[2018-07-08] MEDS: FOLIC ACID 1 MG TAB PO SCH (08:53)
[2018-07-08] MEDS: NICOTINE 14 MG/24 HR PATCH TD SCH (08:57)
[2018-07-08] MEDS: DOLUTEGRAVIR SODIUM PO SCH (09:15)
[2018-07-08] MEDS: TAPENTADOL HCL ER 50 MG TABCR PO SCH (09:15)
[2018-07-08] MEDS: ATAZANAVIR PO SCH (09:15)
[2018-07-08] MEDS: RITONAVIR PO SCH (09:16)
[2018-07-08] MEDS: DOCUSATE SODIUM 100 MG CAP PO SCH (09:50)
[2018-07-08 10:56] VITALS: BP 92/52; PULSE 98; TEMP 99.5; O2SAT 95
--- NOTE | 2018-07-08 14:51 | Progress Note ---
DATE: 07/08/2018 SUBJECTIVE: A 43-year-old gentleman postop day 1 from right hip replacement. He is doing well. Pain is controlled. No chest pain or shortness of breath. Not feeling dizzy or lightheaded. Therapy went well. OBJECTIVE: VITAL SIGNS: Temperature is 37.5. Vital signs stable. GENERAL: Reveals a pleasant, middle-aged male. He is sitting up in bedside chair and looks comfortable. EXTREMITIES: Examination of the right hip and leg reveals the leg lengths to be equal. Dressing is clean, dry and intact. Thigh is soft and supple. NEUROLOGICAL: Intact. LABORATORY DATA: Hemoglobin 8.8, hematocrit 25.2. Electrolytes are stable. ASSESSMENT: A 43-year-old gentleman postop day 1 from right hip replacement, doing well. His pain is controlled. He is anemic, but asymptomatic. PLAN: 1. DVT prophylaxis including thigh high TEDs, SCDs and aspirin twice a day. 2. PT/OT. Weight bear as tolerated. Right total hip protocol. 3. Pain control, doing pretty well with current pain regimen. 4. Disposition. He is going to be discharged to home and he would like to go home today. He will have the [facility] visit him tomorrow for a dressing change.
--- NOTE | 2018-07-09 08:52 | Discharge Summary ---
Date of Service July 15, 2018 Discharge Data Consultations 07/08/18 08:00 Consult Case Management - Discharge Planning Routine Procedures Performed Operation Date: 07/07/18 07:00 Actual Procedures p Right Total Hip Arthroplasty--uncemented(Right) - Baudilio Álvarez MD
--- NOTE | 2018-07-14 16:33 | Discharge Summary ---
NOTICE TO RECEIVING DEMOCRAT/AGENCY This information is strictly Confidential and protected under [place] law. [place] law prohibits you from making any further disclosure of this information unless further disclosure is expressly permitted by the written consent of the person to whom it pertains or is authorized by law. A general authorization for the release of medical or other information is not sufficient for this purpose. Hospital accepts no responsibility if the information is made available to any other person, INCLUDING THE PATIENT. ADMITTING PHYSICIAN AND SURGEON: Dr. Baudilio Álvarez. ADMITTING DIAGNOSIS: Right hip avascular necrosis. SURGERY PERFORMED: Right total hip arthroplasty. SECONDARY DIAGNOSES: Chronic anemia, HIV, depression, history of alcohol use. CONSULTS: None obtained. HISTORY AND PHYSICAL EXAMINATION: Well documented in the patient's chart. HOSPITAL COURSE: The patient was admitted on 07/07/2018 underwent total hip arthroplasty, tolerated the procedure well. There were no complications. He was transferred to the PACU postoperatively and later to the orthopedic floor for further care. He was given Ancef for antibiotic prophylaxis, JIMI stockings, SCDs and aspirin for DVT prophylaxis. Hemoglobin, hematocrit and vital signs were monitored during his hospital stay and remained stable. He developed some postoperative anemia, did not require any blood transfusions. There were no complications. By postoperative day 1, he was tolerating a regular diet, pain was controlled with oral pain medicine. He was participating in physical therapy. On postop day 1, he was discharged home, set up with home health services, given printed discharge instructions including new prescriptions for extra strength Tylenol, iron supplement and oxycodone. Continue his home medications, continue physical therapy, weightbearing as tolerated, JIMI stockings, total hip precautions. Follow up approximately 2 weeks postoperatively or sooner if there are any problems or concerns.
== END 2018-07-08 16:46 | disposition home health service (06) | DRG 470 ==
LOC: ASU 05:13 → 3E 08:35

== ENCOUNTER 2019-05-18 17:01 | Inpatient (IN) ==
[2019-05-18] MEDS ORDERED: DOXYCYCLINE HYCLATE 100 MG in DEXTROSE 5% 100 ML IV STA (19:39)
[2019-05-18] MEDS ORDERED: AMPICILLIN/SULBACTAM SOD 3,000 MG in 0.9 % SODIUM CHLORIDE 100 ML IV STA (19:39)
[2019-05-18 20:08] LABS: Basophils # (auto) 0.03 K/uL (0-0.2); Basophils % (auto) 0.2 %; Eosinophils # (auto) 0.12 K/uL (0-0.5); Hematocrit (blood only) 37.1 % (42-52); Hemoglobin 12.4 g/dL (14.0-18.0); Immature Granulocytes # (auto) 0.04 K/uL (0.00-0.02); Immature Granulocytes % (auto) 0.3 %; Lymphocytes # (auto) 2.48 K/uL (1.2-3.4); Lymphocytes % (auto) 20.1 %; Mean Corpuscular Hemoglobin 34.3 pg (25-34); Mean Corpuscular Hgb Conc 33.4 g/dL (32-36); Mean Corpuscular Volume 102.8 fL (80-100); Mean Platelet Volume 9.5 fL (7.4-10.4); Monocytes # (auto) 1.08 K/uL (0.11-0.59); Monocytes % (auto) 8.8 %; Neutrophils # (auto) 8.59 K/uL (1.4-6.5); Neutrophils % (auto) 69.6 %; Platelet Count 266 K/uL (130-400); RDW Coefficient of Variation 13.5 % (11.5-14.5); RDW Standard Deviation 51.2 fL (36.4-46.3); Red Blood Count 3.61 M/uL (4.7-6.1); White Blood Count 12.34 K/uL (4.8-10.8)
[2019-05-18 20:26] LABS: Albumin Level 3.9 gm/dl (3.4-5.0); BUN Creatinine Ratio 14.9 (10-20); Calcium 9.6 mg/dl (8.5-10.1); Creatinine Clr Calc Pharmacy 98.2 ml/min; Est GFR (Non-African American) 95.7; Potassium 3.8 mmol/L (3.5-5.1)
[2019-05-18 20:29] LABS: Globulin 3.9 gm/dl (2.5-4.0); Total Protein 7.8 gm/dl (6.4-8.2)
--- NOTE | 2019-05-18 22:03 | Ultrasound Report ---
LEFT FOREARM ULTRASOUND CLINICAL HISTORY: Left forearm swelling. Possible abscess. COMPARISON STUDY: No previous studies for comparison. FINDINGS: There is mild edema within the subcutaneous tissues of the proximal forearm. There are no f luid collections to indicate an abscess. No pathologic masses are visualized. IMPRESSION: Mild soft tissue edema. No evidence of focal fluid collection or abscess. ACT 112: Negative or not required by law. Electronically signed by: Sherwin Garcia M.D. 05/18/2019 10:02 PM
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
[2019-05-18] MEDS ORDERED: VANCOMYCIN CONSULT ACTIVE PRN (23:25)
[2019-05-18] MEDS ORDERED: ALBUTEROL 0.083% NEBU SOLN 3 ML VIAL NEB PRN (23:25)
[2019-05-18] MEDS ORDERED: KETOROLAC TROMETHAMINE 15 MG/ML VIAL IV PRN (23:25)
[2019-05-18] MEDS ORDERED: ONDANSETRON INJ 2 MG/ML 2 ML VIAL IV PRN (23:25)
[2019-05-18] MEDS ORDERED: LORazepam 0.5 MG/1 ML VIAL IV PRN (23:25)
[2019-05-18] MEDS ORDERED: VANCOMYCIN HCL 2,000 MG in SODIUM CHLORIDE 0.9% 500 ML IV ONE (23:45)
[2019-05-19] MEDS: LACTATED RINGER'S 1,000 ML IV SCH ×3 (00:12→16:26)
[2019-05-19 06:45] LABS: Hematocrit (blood only) 37.1 % (42-52); Hemoglobin 12.2 g/dL (14.0-18.0); Mean Corpuscular Hemoglobin 34.5 pg (25-34); Mean Corpuscular Hgb Conc 32.9 g/dL (32-36); Mean Corpuscular Volume 104.8 fL (80-100); Mean Platelet Volume 9.6 fL (7.4-10.4); Platelet Count 251 K/uL (130-400); RDW Coefficient of Variation 13.5 % (11.5-14.5); RDW Standard Deviation 51.9 fL (36.4-46.3); Red Blood Count 3.54 M/uL (4.7-6.1); White Blood Count 7.55 K/uL (4.8-10.8)
[2019-05-19 07:20] LABS: Calcium 9.6 mg/dl (8.5-10.1); Creatinine Clr Calc Pharmacy 113.6 ml/min; Potassium 4.1 mmol/L (3.5-5.1)
[2019-05-19] MEDS: VANCOMYCIN HCL 1,000 MG in SODIUM CHLORIDE 0.9% 250 ML IV SCH ×3 (08:16→23:49)
[2019-05-19] MEDS: PROPRANOLOL HCL 20 MG TAB PO SCH ×2 (08:19→21:52)
[2019-05-19] MEDS: PANTOprazole 40 MG TAB PO SCH (08:19)
[2019-05-19] MEDS: ENOXAPARIN INJ 40 MG/0.4 ML SYR SQ SCH (08:19)
[2019-05-19] MEDS: LITHIUM CARBONATE 450 MG TABCR PO SCH ×2 (08:19→21:52)
[2019-05-19] MEDS ORDERED: PANTOprazole 40 MG TAB PO SCH (09:00)
--- NOTE | 2019-05-19 09:17 | Pharmacy Report ---
Pharmacy Abx Dose Short Note - Date of Service May 19, 2019 - Assessment & Plan Assessment 44 year old M ordered vancomycin IV for treatment of b/l cellulitis of forearms * Symptoms presented 5 weeks ago. Pt was treated with Bactrim with initial improvement. * h/o IVDU - last used 1 month prior * on anti-retroviral therapy for HIV Plan Vancomycin * Loading dose: 2000 mg (26 mg/kg) * Maintenance dose: 1000 mg (13 mg/kg) IV q8 hours * Dosing per AUC nomogram with target AUC/SANDY = 400-600 * Trough level ordered for 05/20 at 0730 Pharmacy will continue to follow and will adjust dose/frequency as necessary. Thank you.
[2019-05-19] MEDS: ATAZANAVIR 300 MG PO SCH (09:38)
[2019-05-19] MEDS: EMTRICITABINE/TENOFOVIR TAB PO SCH (09:38)
[2019-05-19] MEDS: RITONAVIR 100 MG TAB PO SCH (09:39)
[2019-05-19] MEDS: DOLUTEGRAVIR SODIUM 50 MG TAB PO SCH (09:39)
--- NOTE | 2019-05-19 20:48 | Hospitalist Progress Note ---
Date of Service May 19, 2019 Assessment & Plan (1) Cellulitis of upper extremity: b/l forearms, worse on right. cont IV vanco. 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 blood cx's thus far neg. in light of fairly recent IV drug abuse this is likely staph or strep infection. doubt gram negative pathogen as cause but could consider adding coverage for such if there is lack of clinical response. (2) Drug abuse, IV: Last reported use 1 month prior. Noted. Should have updated HepB and HepC testing. (3) HIV (human immunodeficiency virus infection): Continue dolutegravir, ritonavir, atazanavir, and Atripla. Follows with Roderick COOPER. Last reported HIV viral load was undetectable. (4) GERD (gastroesophageal reflux disease): Continue pantoprazole No issues (5) Depression: continue Effexor XR, quetiapine, and lithium. Check lithium level in am. (6) Anxiety: Continue buspirone Using Ativan in place of prn clonazepam. Continue propanolol. (7) Macrocytic anemia: B12 in 2018 was wnl. TSH in 2018 was wnl. Check folate level am. Subjective patient reports the cellulitis is worse on right forearm relative to left forearm. no fevers/chills. eating fine. 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 follows with Roderick COOPER for HIV treatment. Review of Systems Constitutional: no fever, no chills, no fatigue and no anorexia Respiratory: no dyspnea Cardiovascular: no chest pain Gastrointestinal: no abdominal pain Physical Exam Constitutional: well developed and well nourished; no acute distress ENMT: external ear and nose normal, oropharynx normal Respiratory: normal respiratory effort, lungs clear to auscultation Cardiovascular: Rate/Rhythm: regular rate and regular rhythm Heart Sounds: normal S1 and normal S2; no murmur Vessels: posterior tibial pulses present and dorsalis pedis pulses present; no JVD Extremities: no edema Gastrointestinal (Abdomen): normal bowel sounds, soft, nontender, no hepatosplenomegaly Skin: mild cellulitis on right forearm, dorsal aspect; no fluid collection/abscess on right. left forearm, ventral surface; indurated area of mild erythema but no fluctuance to suggest abscess. Mild crusting/scale on this region. multiple tattoos various locations. Psychiatric: A+Ox3, euthymic affect Results & Data Vital Signs (Past 12 Hours) Vital Signs Temp Pulse Resp BP Pulse Ox 05/19/19 15:30 36.8 C 61 16 125/83 97 Laboratory Results Laboratory Results - last 24 hr 05/19/19 05/19/19 05/19/19 06:20 06:20 18:15 WBC 7.55 RBC 3.54 L Hgb 12.2 L Hct 37.1 L MCV 104.8 H MCH 34.5 H MCHC 32.9 RDW Std Deviation 51.9 H RDW Coeff of Nubia 13.5 Plt Count 251 MPV 9.6 Sodium 138 Potassium 4.1 Chloride 106 Carbon Dioxide 28 Anion Gap 4.0 BUN 12 Creatinine 0.83 Est Cr Clr Drug Dosing 113.6 Est GFR ( Amer) 124.0 Est GFR (Non-Af Amer) 107.0 BUN/Creatinine Ratio 14.0 Glucose 105 H Calcium 9.6 Nasal Screen MRSA (PCR) Pending PG Care Time/CCT Total # of Minutes Spent Total Time Spent with Patient: Total time spent is greater than 50% in coordination of care (as documented) at patient's floor/unit and/or counseling patient: Coding Level of Care Code 84423 Subseq Hosp Care Lvl 2 Diagnoses Cellulitis of upper extremity L03.119 Laterality: unspecified laterality Drug abuse, IV F19.10 HIV (human immunodeficiency virus infection) B20 HIV symptom status: unspecified GERD (gastroesophageal reflux disease) K21.9 Esophagitis presence: esophagitis presence not specified Depression F32.89 Depression Type: other depression Anxiety F41.9 Macrocytic anemia D53.9 (1) Cellulitis of upper extremity Laterality: unspecified laterality Qualified Code(s): L03.119 - Cellulitis of unspecified part of limb (2) HIV (human immunodeficiency virus infection) HIV symptom status: unspecified Qualified Code(s): B20 - Human immunodeficiency virus [HIV] disease (3) GERD (gastroesophageal reflux disease) Esophagitis presence: esophagitis presence not specified Qualified Code(s): K21.9 - Gastro-esophageal reflux disease without esophagitis (4) Depression Depression Type: other depression Qualified Code(s): F32.89 - Other specified depressive episodes
[2019-05-19] MEDS ORDERED: QUETIAPINE FUMARATE 300 MG TABLET PO SCH (21:00)
[2019-05-19] MEDS ORDERED: VENLAFAXINE HCL XR 150 MG CAPXR PO SCH (21:00)
[2019-05-20] MEDS ORDERED: VANCOMYCIN TROUGH ONE (07:30)
[2019-05-20 07:48] LABS: Hematocrit (blood only) 37.2 % (42-52); Hemoglobin 12.3 g/dL (14.0-18.0); Mean Corpuscular Hemoglobin 34.3 pg (25-34); Mean Corpuscular Hgb Conc 33.1 g/dL (32-36); Mean Corpuscular Volume 103.6 fL (80-100); Mean Platelet Volume 9.5 fL (7.4-10.4); Platelet Count 255 K/uL (130-400); RDW Coefficient of Variation 13.4 % (11.5-14.5); RDW Standard Deviation 50.4 fL (36.4-46.3); Red Blood Count 3.59 M/uL (4.7-6.1); White Blood Count 5.16 K/uL (4.8-10.8)
[2019-05-20 08:09] LABS: BUN Creatinine Ratio 15.5 (10-20); Calcium 10.2 mg/dl (8.5-10.1); Creatinine Clr Calc Pharmacy 99.2 ml/min; Est GFR (African American) 112.4; Potassium 4.1 mmol/L (3.5-5.1)
[2019-05-20 08:31] LABS: Lithium 0.4 mmol/L (0.6-1.2); Vancomycin Trough 15.6 mcg/ml (See Comment)
[2019-05-20] MEDS: PROPRANOLOL HCL 20 MG TAB PO SCH (08:46)
[2019-05-20] MEDS: VANCOMYCIN HCL 1,000 MG in SODIUM CHLORIDE 0.9% 250 ML IV SCH ×2 (08:46→17:26)
[2019-05-20] MEDS: LITHIUM CARBONATE 450 MG TABCR PO SCH (08:46)
[2019-05-20] MEDS: PANTOprazole 40 MG TAB PO SCH (08:47)
[2019-05-20] MEDS: ENOXAPARIN INJ 40 MG/0.4 ML SYR SQ SCH (08:48)
[2019-05-20] MEDS: ATAZANAVIR 300 MG PO SCH (09:03)
[2019-05-20] MEDS: DOLUTEGRAVIR SODIUM 50 MG TAB PO SCH (09:03)
[2019-05-20] MEDS: RITONAVIR 100 MG TAB PO SCH (09:03)
[2019-05-20] MEDS: EMTRICITABINE/TENOFOVIR TAB PO SCH (09:03)
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
--- NOTE | 2019-05-20 10:15 | Pharmacy Report ---
Pharmacy Abx Dose Short Note - Date of Service May 20, 2019 - Assessment & Plan Assessment 44 year old M receiving vancomycin for upper extremity cellulitis Day # 3 of antimicrobial therapy. Plan Vancomycin * Trough level came back therapeutic today at ~15 mcg/ml * Patient meets criteria for vancomycin AUC dosing - will continue dose by nomogram * Target AUC/SANDY = 400-600 * Blood cultures x 2 are no growth. ID consulted and recommend po abx on discharge * Continue same vancomycin dosing - will continue to follow Pharmacy will continue to follow and will adjust dose/frequency as necessary. Thank you.
--- NOTE | 2019-05-20 17:06 | Discharge Summary ---
Date of Service May 20, 2019 Discharge Data Allergies Allergy/AdvReac Type Severity Reaction Status Date / Time Opioids - Morphine Analogues Allergy Unknown Verified 05/18/19 22:42 acetaminophen AdvReac Unknown NO TYLENOL Verified 05/18/19 22:42 DUE TO ABNORMAL LIVER TESTS Consultations 05/18/19 21:42 ED Decision to Admit Stat 05/18/19 23:25 Consult Case Management - Discharge Planning Routine 05/19/19 12:53 Consult Infectious Diseases Routine Ordered Studies 05/18/19 19:39 US extremity non-vascular ltd Stat Hospital Course (1) Cellulitis of upper extremity: b/l forearms, worse on right. cont IV vanco. 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 blood cx's thus far neg. in light of fairly recent IV drug abuse this is likely staph or strep infection. doubt gram negative pathogen as cause but could consider adding coverage for such if there is lack of clinical response. (2) Drug abuse, IV: Last reported use 1 month prior. Noted. Should have updated HepB and HepC testing. (3) HIV (human immunodeficiency virus infection): Continue dolutegravir, ritonavir, atazanavir, and Atripla. Follows with Roderick Matthew ID. Last reported HIV viral load was undetectable. (4) GERD (gastroesophageal reflux disease): Continue pantoprazole No issues (5) Depression: continue Effexor XR, quetiapine, and lithium. Check lithium level in am. (6) Anxiety: Continue buspirone Using Ativan in place of prn clonazepam. Continue propanolol. (7) Macrocytic anemia: B12 in 2018 was wnl. TSH in 2018 was wnl. Check folate level am. Discharge Plan Discharge Items Patient Disposition: Home - Self-Care Reason For Visit: CELLULITIS of both ARMS Discharge Diagnosis: cellulitis (skin infection) of both arms - improved Activity: Resume your previous activity Follow-up/Referrals: Duy Tejada III, MD [Primary Care Provider] - Aubrie Bland DO [Physician] - (see Dr Bland as scheduled in the infectious disease clinic ) Diet: Regular Addtl Attending Provider Instructions: You were treated for cellulitis of both arms. You improved nicely with IV antibiotics. Dr Bland from infectious disease saw you in consult and recommended bactrim (sulfa antibiotic) 1 tablet twice daily for [address] Bland will see you in follow-up in the infectious disease clinic. I have sent the bactrim to [facility] in [place]. Lastly, please reduce your propranolol to 10mg twice daily (you had been taking 20mg twice daily). I am recommending the reduced dose due to your low blood pressures. Return to [facility] if -- * you have fevers over 100.5 degrees * you have worsening redness, swelling or pain of either arm * you develop severe diarrhea * any other concerns Pending Studies at Discharge: No Stand-Alone Forms: My [facility], Smoking Cessation Medications and DC Order Prescriptions: New sulfamethoxazole-trimethoprim [Bactrim DS] 800-160 mg tablet 1 tab PO BID 14 Days Qty: 28 RF: 0 Continued pantoprazole 40 mg tablet,delayed release (DR/EC) 40 mg PO QAM Qty: 30 RF: 4 atazanavir 300 mg capsule 300 mg PO DAILY Qty: 90 RF: 3 dolutegravir 50 mg tablet 50 mg PO QAM Qty: 90 RF: 3 emtricitabine-tenofovir (TDF) 200-300 mg tablet 1 tab PO QAM Qty: 90 RF: 3 ritonavir 100 mg tablet 100 mg PO QAM Qty: 90 RF: 3 clonazepam 1 mg tablet 1 mg PO DAILY PRN (Reason: Anxiety) Qty: 30 RF: 0 lithium carbonate 450 mg tablet extended release 450 mg PO BID Qty: 60 RF: 5 melatonin 10 mg capsule 10 mg PO HS Qty: 30 RF: 5 quetiapine 300 mg tablet 300 mg PO HS Qty: 30 RF: 5 buspirone 10 mg tablet 10 mg PO TID PRN (Reason: anxiety) Qty: 90 RF: 5 venlafaxine [Effexor XR] 150 mg capsule,extended release 24hr 150 mg PO HS RF: 0 Changed propranolol 20 mg tablet 10 mg PO BID Qty: 0 RF: 0 Discharge Orders: Discharge Order (Routine); Ordered 05/20/19 Ordered By: Pratik Chau Admission Data Admit Date/Time: 05/18/19 22:13 Attending Provider: Pratik Chau Admit Provider: Girish Thapa Primary Care Provider: Duy Tejada III Other Providers: Girish Thapa ; Bland,Aubrie Other Interventions: Discharge Summary Assessment (RN) Last Done: 05/20/19 17:03 Coding Diagnoses Cellulitis of upper extremity L03.119 Laterality: unspecified laterality Drug abuse, IV F19.10 HIV (human immunodeficiency virus infection) B20 HIV symptom status: unspecified GERD (gastroesophageal reflux disease) K21.9 Esophagitis presence: esophagitis presence not specified Depression F32.89 Depression Type: other depression Anxiety F41.9 Macrocytic anemia D53.9
== END 2019-05-20 18:19 | disposition home or self-care (01) | DRG 603 ==
LOC: ED 17:01 → 4W 22:13 → SUATTDRO 22:13 → 4W 22:51

== ENCOUNTER 2024-04-10 03:48 | Inpatient (IN) ==
[2024-04-10] MEDS: hydrOXYzine HCL IM SOLN 50 MG/ML 1 ML VIAL IM STA (04:20)
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
[2024-04-10 05:51] LABS: Appearance Urine Clear (Clear); Bacteria Urine Automated None Seen (None Seen); Bilirubin Urine Negative (Negative); Blood Urine Trace (Negative); Cast Urine Automated 0-2 /lpf (0-2); Color Urine Yellow; Epithelial Cell Urine Auto 0-2 /hpf (0-2); Glucose Urine UA Negative (Negative); Ketones Urine 2+ (Negative); Leukocyte Esterase Urine Negative (Negative); Nitrite Urine Negative (Negative); Protein Urine Negative (Negative); RBC Urine Automated 0-2 /hpf (0-2); Specific Gravity Urine 1.037 (1.000-1.030); Urobilinogen Urine Negative (Negative); WBC Urine Automated 0-5 /hpf (0-5); pH Urine 6.5 (4.5-7.5)
[2024-04-10 05:53] LABS: Basophils # (auto) 0.02 K/uL (0.00-0.20); Basophils % (auto) 0.2 %; Eosinophils # (auto) 0.02 K/uL (0.00-0.50); Eosinophils % (auto) 0.2 %; Hematocrit (blood only) 44.6 % (42.0-52.0); Hemoglobin 15.6 g/dl (14.0-18.0); Immature Granulocytes # (auto) 0.03 K/uL (0.01-0.20); Immature Granulocytes % (auto) 0.3 %; Lymphocytes # (auto) 2.34 K/uL (1.20-3.40); Lymphocytes % (auto) 26.1 %; Mean Corpuscular Hemoglobin 32.8 pg (25.0-34.0); Mean Corpuscular Volume 93.7 fL (80.0-100.0); Mean Platelet Volume 9.5 fL (9.4-12.4); Monocytes # (auto) 0.58 K/uL (0.11-0.59); Monocytes % (auto) 6.5 %; Neutrophils # (auto) 5.96 K/uL (1.40-6.50); Neutrophils % (auto) 66.7 %; Platelet Count 283 K/uL (130-400); RDW Coefficient of Variation 12.9 % (11.5-14.5); RDW Standard Deviation 44.2 fL (36.4-46.3); Red Blood Count 4.76 M/uL (4.70-6.10); White Blood Count 8.95 K/ul (4.8-10.8)
[2024-04-10 06:05] LABS: Acetaminophen < 3 ug/ml (10-30); Salicylate < 3.0 mg/dl (3.0-30)
[2024-04-10 06:06] LABS: Amphetamines+Metham, Urine Neg (Neg); Barbiturates, Urine Neg (Neg); Benzodiazepine, Urine Neg (Neg); Cocaine, Urine Neg (Neg); Fentanyl, Urine Neg (Neg); MDMA (Ecstacy), Urine Neg (Neg); Marijuana, Urine Pos (Neg); Methadone, Urine Neg (Neg); Opiate, Urine Neg (Neg); Phencyclidine, Urine Neg (Neg)
[2024-04-10 06:07] LABS: Albumin Globulin Ratio 1.5 (0.9-2); Albumin Level 5.1 gm/dl (3.4-5.0); BUN Creatinine Ratio 9.4 (10-20); Bilirubin,Total 0.6 mg/dl (0.2-1.0); Calcium 10.3 mg/dl (8.6-10.3); Creatinine Clr Calc Pharmacy 106.3 ml/min; Globulin 3.3 gm/dl (2.5-4.0); Potassium 3.7 mmol/L (3.5-5.1); Total Protein 8.4 gm/dl (6.0-8.3)
[2024-04-10 06:21] LABS: Thyroid Stimulating Hormone 1.264 uIu/ml (0.300-4.500)
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
--- NOTE | 2024-04-10 09:16 | XRay Report ---
EXAM: Radiograph of the Chest 1 View INDICATION: COVID. TECHNIQUE: Frontal view of the chest. COMPARISON: 12/24/2022 FINDINGS: Lungs and pleural spaces: Stable symmetrical interstitial scarring without pulmonary infiltrate, pleural effusion or pneumothorax. Heart: Shape and configuration within normal limits allowing for technique. Mediastinum: Normal contour. Bones/joints: Old right rib fractures. Stable dense osseous structures. No acute osseous abnormality. Soft tissues: No abnormality noted. No radiopaque foreign body noted. Upper abdomen: No abnormality noted. IMPRESSION: Stable chronic changes. No acute disease. ACT 112: Negative or not required by law. Electronically signed by Sera Posada 04-10-2024 09:16 AM
[2024-04-10] MEDS ORDERED: ONDANSETRON INJ 2 MG/ML 2 ML VIAL IV PRN (10:44)
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
[2024-04-10] MEDS: busPIRone 15 MG TAB PO SCH (12:13)
[2024-04-10] MEDS: VENLAFAXINE HCL XR 75 MG CAPXR PO SCH (12:13)
[2024-04-10] MEDS: PROPRANOLOL HCL 20 MG TAB PO SCH (12:13)
[2024-04-10] MEDS ORDERED: ARIPiprazole 5 MG TAB PO SCH (12:45)
[2024-04-10] MEDS: ARIPiprazole 10 MG TAB PO SCH (14:27)
[2024-04-10] MEDS: QUEtiapine FUMARATE 200 MG TAB PO SCH (20:33)
[2024-04-10] MEDS: SUCRALFATE 1 GM/10 ML UDC PO SCH (20:33)
[2024-04-10] MEDS: PANTOprazole 40 MG TAB PO SCH (20:33)
[2024-04-10] MEDS: ENOXAPARIN INJ 40 MG/0.4 ML SYR SQ SCH (20:34)
[2024-04-10] MEDS ORDERED: PRAZOSIN HCL 1 MG CAP PO SCH (21:00)
[2024-04-11 06:41] LABS: Basophils # (auto) 0.03 K/uL (0.00-0.20); Basophils % (auto) 0.3 %; Eosinophils # (auto) 0.05 K/uL (0.00-0.50); Eosinophils % (auto) 0.5 %; Hematocrit (blood only) 41.5 % (42.0-52.0); Hemoglobin 14.6 g/dl (14.0-18.0); Immature Granulocytes # (auto) 0.02 K/uL (0.01-0.20); Immature Granulocytes % (auto) 0.2 %; Lymphocytes # (auto) 2.08 K/uL (1.20-3.40); Lymphocytes % (auto) 22.3 %; Mean Corpuscular Hemoglobin 33.1 pg (25.0-34.0); Mean Corpuscular Hgb Conc 35.2 g/dL (32.0-36.0); Mean Corpuscular Volume 94.1 fL (80.0-100.0); Mean Platelet Volume 9.5 fL (9.4-12.4); Monocytes # (auto) 0.78 K/uL (0.11-0.59); Monocytes % (auto) 8.4 %; Neutrophils # (auto) 6.35 K/uL (1.40-6.50); Neutrophils % (auto) 68.3 %; Platelet Count 238 K/uL (130-400); RDW Coefficient of Variation 12.9 % (11.5-14.5); RDW Standard Deviation 44.6 fL (36.4-46.3); Red Blood Count 4.41 M/uL (4.70-6.10); White Blood Count 9.31 K/ul (4.8-10.8)
[2024-04-11 07:00] LABS: BUN Creatinine Ratio 19.5 (10-20); Calcium 9.8 mg/dl (8.6-10.3); Creatinine Clr Calc Pharmacy 110.2 ml/min; Potassium 3.8 mmol/L (3.5-5.1)
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
[2024-04-11] MEDS: LORazepam 1 MG TAB PO PRN (13:18)
--- NOTE | 2024-04-11 19:04 | Hospitalist Progress Note ---
Date of Service April 11, 2024 Assessment & Plan (1) Suicidal ideation: Plan: Patient endorses thoughts of self-harm and suicidal ideations on admission Continues with SIs H/o suicide attempt in 2019 One-to-one observation Safe tray Appreciate recs by psychiatry (2) Panic attacks: Plan: cont inderal BID cont seroquel, abilify, ativan prn, atarax prn (3) COVID-19: Plan: COVID (+) on arrival Mild sore throat started about 6-7 days ago Mild cough only at this time with stable O2 sats and negative cxr Stable labs cont COVID isolation precautions Patient would require clearance from infection control prior to being moved to inpatient psych Supportive care No indication for steroids or anti-virals at this time (4) Anxiety: Plan: see #2 above (5) Dysphagia: Plan: Patient has an upcoming EGD scheduled for May 12 Has had issues with dry heaving and vomiting after meals Increased his PPI to BID and added carafate Symptoms improved today (6) HIV (human immunodeficiency virus infection): Plan: Currently on Cabenuva injections Stable CBC and WBC count (7) History of suicide attempt: (8) GERD (gastroesophageal reflux disease): Plan: PPI carafate (9) Tobacco abuse: Plan: add nicoderm patch daily Plan DVT proph - lovenox fiance updated at bedside today Admission and Anticipated Discharge Date Admission Date: April 10, 2024 Subjective still not sleeping well still quite anxious and still with suicidal ideation remains 1:1 observation mild cough only along with fatigue -- but no sleep in 3+ days pt's significant other was at bedside during the visit Review of Systems Review of Systems: CV - no chest pain pulm - no dyspnea GI - no abd pain Physical Exam Physical Exam: gen - NAD, lying comfortably in bed neck - no JVD mouth - MMM, no thrush heart - RRR, s1 s2 lungs - CTA b/l abd - soft NT ND BS+; no HSM ext - no edema, pulses 2+ b/l neuro - strength 5/5 x 4 exts; no facial droop; speech clear/fluent; finger/nose/finger maneuver w/o ataxia Results & Data Results & Data Vital Signs (Past 12 Hours) Vital Signs Temp Pulse Resp BP Pulse Ox O2 Del Method 04/11/24 15:58 36.9 C 66 18 143/91 H 95 Room Air 04/11/24 08:40 Room Air 04/11/24 07:10 36.8 C 76 16 161/96 H 94 Room Air Laboratory Results Laboratory Results - last 24 hr 04/11/24 06:13 WBC 9.31 RBC 4.41 L Hgb 14.6 Hct 41.5 L MCV 94.1 MCH 33.1 MCHC 35.2 RDW Std Deviation 44.6 RDW Coeff of Nubia 12.9 Plt Count 238 MPV 9.5 Immature Gran % (Auto) 0.2 Neut % (Auto) 68.3 Lymph % (Auto) 22.3 [place] % (Auto) 8.4 Eos % (Auto) 0.5 Baso % (Auto) 0.3 Neut # (Auto) 6.35 Lymph # (Auto) 2.08 [place] # (Auto) 0.78 H Eos # (Auto) 0.05 Baso # (Auto) 0.03 Immature Gran # (Auto) 0.02 Sodium 137 Potassium 3.8 Chloride 101 Carbon Dioxide 29 Anion Gap 7 BUN 16 Creatinine 0.82 Est Cr Clr Drug Dosing 110.2 eGFR 108.35 BUN/Creatinine Ratio 19.5 Glucose 81 Calcium 9.8 PG Care Time/CCT Total # of Minutes Spent Total Time Spent with Patient: Total time spent is greater than 50% in coordination of care (as documented) at patient's floor/unit and/or counseling patient: Coding Level of Care Code 08044 SUB INP/OBS CARE 2/35MIN Diagnoses Suicidal ideation R45.851 Panic attacks F41.0 COVID-19 U07.1 Anxiety F41.9 Dysphagia R13.10 HIV (human immunodeficiency virus infection) B20 HIV symptom status: unspecified History of suicide attempt Z91.51 Gastroesophageal reflux disease, esophagitis presence not specified K21.9 Esophagitis presence: esophagitis presence not specified Tobacco abuse Z72.0 (6) HIV (human immunodeficiency virus infection) HIV symptom status: unspecified Qualified Code(s): B20 - Human immunodeficiency virus [HIV] disease (8) GERD (gastroesophageal reflux disease) Esophagitis presence: esophagitis presence not specified Qualified Code(s): K21.9 - Gastro-esophageal reflux disease without esophagitis
[2024-04-11] MEDS: NICOTINE 14 MG/24 HR PATCH TD SCH (20:52)
--- NOTE | 2024-04-12 11:16 | Psychiatric Progress Note ---
Date of Service April 12, 2024 Impression / Recommendations Impression Joe Kearney is a 48 y/o domiciled at sober living facility, unemployed, homosexual, in a relationship male h/o depression, anxiety, inhalant abuse (air duster), alcohol use d/o in recent remission, dysphagia, HIV (adherent to tx), h/o IVDA who presents with worsening anxiety and depression, suicidal ideation, and physical complaints of dysphagia in the context of escalating legal problems (past DUIs and possible imprisonment). Pt is COVID-19 positive. Psychiatry consulted for evaluation and management. Presentation consistent with MDD, recurrent, episode with anxious distress. H/o past major depressive episodes. Recent anxiety symptoms likely multifactorial; coping with legal problems in the setting of worsening depression and physical ailments. Patient would benefit from inpatient psychiatry admission however currently COVID-19 positive and will continue to manage his care as a PSOC. A:Presented improved sleep with no disruptions with lorazepam PRN. C/o intermittent anxiety symptoms and SI; appears to be improving. Less ruminative today. Presenting some future orientation and plans. Will divide day time Lorazepam PRN for longer effect at some dose. Social work establishing outpatient psychiatry and therapy f/u. Overall, I spent a total of 40 minutes with this case including review of chart records, nursing report, review of lab work, direct evaluation of the patient at bedside, counseling the patient, discussion of the patient with the hospitalist provider, discussion with the psychiatric liaison during clinical rounds, collateral from finance, and documentation in the electronic health record. (1) Suicidal ideation: (2) Major depressive disorder, recurrent episode with anxious distress: (3) Legal problem: (4) Inhalant abuse: (5) Alcohol use disorder in remission: (6) Hx of intravenous drug use, in remission: (7) Tobacco use disorder: (8) COVID-19: (9) Dysphagia: (10) GERD (gastroesophageal reflux disease): (11) HIV (human immunodeficiency virus infection): Plan 04/12/24: Lorazepam PRN changed to 0.5mg BID PRN for anxiety and 1mg HS PRN for insomnia 04/11/24: Continue medications and treatment plan. 04/10/24: Bedside sitter Suicide precautions Safety tray Continue home Effexor 225mg QAM, Seroquel 200mg HS, Propranolol 20mg BID, Buspirone 15mg BID D/c Prazosin 1mg HS Start Abilify 5mg QD Start Lorazepam 1mg BID PRN for anxiety/insomnia Risk Factors Assessment Do You Have Access To A Gun?: No Protective Factors Assessment Employed: Yes ([employer]) Interval History Identifying Information Joe Kearney is a 48 y/o domiciled at sober living facility, unemployed, homosexual, in a relationship male h/o depression, anxiety, inhalant abuse (air duster), alcohol use d/o in recent remission, dysphagia, HIV (adherent to tx), h/o IVDA who presents with worsening anxiety and depression, suicidal ideation, and physical complaints of dysphagia in the context of escalating legal problems (past DUIs and possible imprisonment). Pt is COVID-19 positive. Psychiatry consulted for evaluation and management. Chief Complaint Suicidal at times Subjective Subjective Patient was seen & assessed and interval progress reviewed with treatment team nursing and social work The patient reports sleeping well last night with ativan. No sleep disruptions. Feels more rested. C/o anxiety attacks yesterday with SOB and chest tightness. Denies feelings of doom or feeling paralyzed. 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 Expecting 2 year jail sentence. Has plans to spend [place] with hermelinda's family. Reports Ativan effect is for 3-4 hrs. C/o SI sometimes in the days. Denies active plans. Reports ruminations have improved. Physical Exam Mental Examination Appearance: Unkempt Eye Contact: Maintains Eye Contact Motor Behavior: Unremarkable Speech: Soft Mood: Depressed and Anxious Affect: Congruent and Constricted Thought Process: Intact and Linear Thought Content: Intact and Racing Hallucinations: None Insight: Poor (to limited) Judgement: Poor (to limited, adherent to treatment plan) Vital Signs (Past 24 Hours) Last Vital Signs Temp 36.7 C 04/12/24 07:08 Pulse 76 04/12/24 07:08 Resp 16 04/12/24 07:08 BP 122/86 04/12/24 07:08 Pulse Ox 97 04/12/24 07:08 O2 Del Method Room Air 04/12/24 08:54 Results & Data ([facility]) Current Inpatient Medications Current Inpatient Medications: Current Inpatient Medications Aripiprazole (Aripiprazole 10 Mg Tab) 5 mg PO QAM [facility] Stop: 05/10/24 12:59 Last Admin: 04/12/24 08:49 Dose: 5 mg Buspirone HCl (Buspirone 15 Mg Tab) 15 mg PO BID [facility] Stop: 05/10/24 10:43 Last Admin: 04/12/24 08:48 Dose: 15 mg Enoxaparin Sodium (Enoxaparin Inj 40 Mg/0.4 Ml Syr) 40 mg SQ Q24H [facility] Stop: 05/10/24 20:59 Last Admin: 04/11/24 20:47 Dose: Not Given Hydroxyzine HCl (Hydroxyzine Hcl 25 Mg Tab) 25 mg PO QID PRN PRN Reason: Anxiety/Agitation Stop: 05/10/24 10:43 Lorazepam (Lorazepam 1 Mg Tab) 1 mg PO HS PRN PRN Reason: Insomnia Stop: 05/10/24 12:43 Lorazepam (Lorazepam 0.5 Mg Tab) 0.5 mg PO BID PRN PRN Reason: Anxiety Stop: 05/12/24 10:59 Melatonin (Melatonin 3 Mg Tab) 3 mg PO HS PRN PRN Reason: Insomnia Stop: 05/10/24 10:43 Miscellaneous (Remove Nicoderm Patch) 1 each N/A DAILY@0859 [facility] Stop: 05/12/24 08:58 Last Admin: 04/12/24 08:49 Dose: Not Given Nicotine (Nicotine 14 Mg/24 Hr Patch) 1 patch TD QAM [facility] Stop: 05/11/24 19:14 Last Admin: 04/12/24 09:04 Dose: Not Given Ondansetron HCl (Ondansetron Inj 2 Mg/Ml 2 Ml Vial) 4 mg IV Q6H PRN PRN Reason: Nausea Stop: 05/10/24 10:43 Pantoprazole Sodium (Pantoprazole 40 Mg Tab) 40 mg PO BID [facility] Stop: 05/10/24 20:59 Last Admin: 04/12/24 08:48 Dose: 40 mg Propranolol HCl (Propranolol Hcl 20 Mg Tab) 20 mg PO BID [facility] Stop: 05/10/24 10:43 Last Admin: 04/12/24 08:48 Dose: 20 mg Quetiapine Fumarate (Quetiapine Fumarate 200 Mg Tab) 200 mg PO HS [facility] Stop: 05/10/24 20:59 Last Admin: 04/11/24 20:53 Dose: 200 mg Sucralfate (Sucralfate 1 Gm/10 Ml Udc) 1 gm PO QID [facility] Stop: 05/10/24 20:59 Last Admin: 04/12/24 08:50 Dose: 1 gm Venlafaxine HCl (Venlafaxine Hcl Xr 75 Mg Capxr) 225 mg PO QAM [facility] Stop: 05/10/24 10:43 Last Admin: 04/12/24 08:48 Dose: 225 mg Mental Health & Subst Abuse Tx Therapist Name of Therapist: None Cotton Cleaner Name of Cotton Cleaner: None Post Discharge Appointments Primary Care Physician Name Of Family Doctor/PCP: Joe Ortiz (10) GERD (gastroesophageal reflux disease) Esophagitis presence: esophagitis presence not specified Qualified Code(s): K21.9 - Gastro-esophageal reflux disease without esophagitis (11) HIV (human immunodeficiency virus infection) HIV symptom status: unspecified Qualified Code(s): B20 - Human immunodeficiency virus [HIV] disease
[2024-04-12] MEDS: LORazepam 0.5 MG TAB PO PRN (13:02)
[2024-04-12 14:42] LABS: Marijuana Quant, GCMS Urine 3192 ng/mL (<5)
[2024-04-12] MEDS: FLUCONAZOLE 100 MG TAB PO SCH (14:49)
--- NOTE | 2024-04-12 19:35 | Hospitalist Progress Note ---
Date of Service April 12, 2024 Assessment & Plan (1) Suicidal ideation: Plan: Patient endorsed thoughts of self-harm and suicidal ideations on admission Continues with intermittent SIs H/o suicide attempt in 2019 One-to-one observation Safe tray Appreciate recs by psychiatry Need for inpatient psych at conclusion of medical stay ? Defer that decision to psych (2) Panic attacks: Plan: cont inderal BID cont seroquel, abilify, ativan prn, atarax prn (3) COVID-19: Plan: COVID (+) on arrival Mild sore throat started about 7 days ago Mild cough only at this time with stable O2 sats and negative cxr Stable labs cont COVID isolation precautions No indication for steroids or anti-virals at this time spoke with our infection electrical controls assembler today --- can d/c COVID isolation on the am of 04/14/24 (4) Anxiety: Plan: see #2 above (5) Dysphagia: Plan: Patient has an upcoming EGD scheduled for May 12 in [place] Has had issues with dry heaving and vomiting after meals Increased his PPI to BID and added carafate QID Symptoms improved but not resolved 2021 EGD at [facility] - candidal esophagitis 2022 EGD at [facility] - erosive esophagitis see below (6) Esophageal candidiasis: Plan: 2021 as seen on EGD patient states some of his current upper GI symptoms remind him of that episode reasonable to treat empirically for such as he has improved but not resolved GERD symptoms despite optimal acid suppression (PPI bid, carafate qid) EKG at admission with normal QTc start diflucan 200mg daily treat 10-14 days QTc on most recent EKG wnl (7) GERD (gastroesophageal reflux disease): Plan: PPI carafate as above (8) HIV (human immunodeficiency virus infection): Plan: Currently on Cabenuva injections Stable CBC and WBC count Records indicate last HIV viral load was undetectable and CD4 count was >500 (9) History of suicide attempt: (10) Tobacco abuse: Plan: nicoderm patch daily (11) Speech abnormality: Plan: patient had difficulty with speech the evening of 04/09 in the setting of extreme anxiety/panic attack he went to [facility] PM of 04/09 I received those records today he underwent stroke w/u with CT head & CTA head/neck all of which were negative; brain MRI not performed he was d/c and was told his symptoms were likely due to anxiety to be complete could consider brain MRI and echo - defer for now Plan DVT proph - lovenox fiance updated at bedside today of note - I spoke with infection control today --- patient's COVID isolation can be discontinued on 1225 AM made psychiatry aware Admission and Anticipated Discharge Date Admission Date: April 10, 2024 Subjective pt resting comfortably in bed fiance at bedside only complaint is that of upper GI symptoms states his heartburn is better, but he is having odynophagia at times it feels similar to when he had candidal esophagitis in 2021 - EGD confirmed in 2022 he had erosive esophagitis - also EGD confirmed denies vomiting minimal cough at this point no new COVID symptoms he slept last night - best sleep he has had in 4+ days records received from [facility] - indeed had CTA head/neck and CT head due to "speaking difficulties" these studies were performed on 04/09/24 CT head & CTAs head/neck were fully negative Review of Systems Review of Systems: gen - no fevers or chills cv - no cp, no orthopnea pulm - no dyspnea GI - no abd pain Physical Exam Physical Exam: gen - NAD, lying comfortably in bed, best he has looked since admission neck - no JVD mouth - MMM, no thrush heart - RRR, s1 s2, no murmur lungs - CTA b/l abd - soft NT ND BS+; no HSM ext - no edema, pulses 2+ b/l Results & Data Results & Data Vital Signs (Past 12 Hours) Vital Signs Temp Pulse Resp BP Pulse Ox O2 Del Method 04/12/24 19:28 37.0 C 82 18 153/99 H 94 Room Air 04/12/24 08:54 Room Air Laboratory Results Laboratory Results - last 24 hr 04/10/24 05:20 U Marijuana THC Carboxy 3192 H Drug Screen Comment SEE NOTE PG Care Time/CCT Total # of Minutes Spent Total Time Spent with Patient: Total time spent is greater than 50% in coordination of care (as documented) at patient's floor/unit and/or counseling patient: Coding Level of Care Code 24836 SUB INP/OBS CARE 3/50MIN Diagnoses Suicidal ideation R45.851 Panic attacks F41.0 COVID-19 U07.1 Anxiety F41.9 Dysphagia R13.10 Esophageal candidiasis B37.81 Gastroesophageal reflux disease, esophagitis presence not specified K21.9 Esophagitis presence: esophagitis presence not specified HIV (human immunodeficiency virus infection) B20 HIV symptom status: unspecified History of suicide attempt Z91.51 Tobacco abuse Z72.0 Speech abnormality R47.9 (7) GERD (gastroesophageal reflux disease) Esophagitis presence: esophagitis presence not specified Qualified Code(s): K21.9 - Gastro-esophageal reflux disease without esophagitis (8) HIV (human immunodeficiency virus infection) HIV symptom status: unspecified Qualified Code(s): B20 - Human immunodeficiency virus [HIV] disease
[2024-04-12] MEDS: LORazepam 1 MG TAB PO PRN (20:17)
[2024-04-12] MEDS: MELATONIN 3 MG TAB PO PRN (20:17)
--- NOTE | 2024-04-13 14:51 | Psychiatric Progress Note ---
Date of Service April 13, 2024 Impression / Recommendations Impression Joe Kearney is a 48 y/o domiciled at sober living facility, unemployed, homosexual, in a relationship male h/o depression, anxiety, inhalant abuse (air duster), alcohol use d/o in recent remission, dysphagia, HIV (adherent to tx), h/o IVDA who presents with worsening anxiety and depression, suicidal ideation, and physical complaints of dysphagia in the context of escalating legal problems (past DUIs and possible imprisonment). Pt is COVID-19 positive. Psychiatry consulted for evaluation and management. Presentation consistent with MDD, recurrent, episode with anxious distress. H/o past major depressive episodes. Recent anxiety symptoms likely multifactorial; coping with legal problems in the setting of worsening depression and physical ailments. Patient would benefit from inpatient psychiatry admission however currently COVID-19 positive and will continue to manage his care as a PSOC. A:Pt is sleeping well. Presents brighter and more reactive affect today. Endorses improvement in anxious ruminations. SI resolved. Pt educated about MDD and how it may influence substance use. Overall, I spent a total of 40 minutes with this case including review of chart records, nursing report, review of lab work, direct evaluation of the patient at bedside, counseling the patient, discussion of the patient with the hospitalist provider, discussion with the psychiatric liaison during clinical rounds, madeline sanford from finance, and documentation in the electronic health record. (1) Major depressive disorder, recurrent episode with anxious distress: (2) Legal problem: (3) Inhalant abuse: (4) Alcohol use disorder in remission: (5) Hx of intravenous drug use, in remission: (6) Tobacco use disorder: (7) COVID-19: (8) Dysphagia: (9) GERD (gastroesophageal reflux disease): (10) HIV (human immunodeficiency virus infection): Plan 04/13/24: D/c daytime Lorazepam PRN. Continue other medications. 04/12/24: Lorazepam PRN changed to 0.5mg BID PRN for anxiety and 1mg HS PRN for insomnia 04/11/24: Continue medications and treatment plan. 04/10/24: Bedside sitter Suicide precautions Safety tray Continue home Effexor 225mg QAM, Seroquel 200mg HS, Propranolol 20mg BID, Buspirone 15mg BID D/c Prazosin 1mg HS Start Abilify 5mg QD Start Lorazepam 1mg BID PRN for anxiety/insomnia Risk Factors Assessment Do You Have Access To A Gun?: No Protective Factors Assessment Employed: Yes ([employer]) Interval History Identifying Information Joe Keanrey is a 48 y/o domiciled at sober living facility, unemployed, homosexual, in a relationship male h/o depression, anxiety, inhalant abuse (air duster), alcohol use d/o in recent remission, dysphagia, HIV (adherent to tx), h/o IVDA who presents with worsening anxiety and depression, suicidal ideation, and physical complaints of dysphagia in the context of escalating legal problems (past DUIs and possible imprisonment). Pt is COVID-19 positive. Psychiatry consulted for evaluation and management. Chief Complaint Depression Subjective Subjective Patient was seen & assessed and interval progress reviewed with treatment team nursing and social work Today patient reports sleeping well. Improvement in anxious ruminations. Worried about outcome of hearing next month. Denies SI. More reactive affect and smiling at times. Slightly hesitant about discharge. Physical Exam Mental Examination Appearance: Unkempt Eye Contact: Maintains Eye Contact Motor Behavior: Unremarkable Speech: Soft Mood: Euthymic Affect: Congruent and Constricted Thought Process: Intact and Linear Thought Content: Intact and Racing Hallucinations: None Insight: Poor (to limited) Judgement: Poor (to limited, adherent to treatment plan) Vital Signs (Past 24 Hours) Last Vital Signs Temp 36.5 C 04/13/24 08:02 Pulse 84 04/13/24 08:02 Resp 17 04/13/24 08:02 BP 130/91 04/13/24 08:02 Pulse Ox 94 04/13/24 08:02 O2 Del Method Room Air 04/13/24 08:02 Results & Data ([facility]) Current Inpatient Medications Current Inpatient Medications: Current Inpatient Medications Aripiprazole (Aripiprazole 10 Mg Tab) 5 mg PO QAM [facility] Stop: 05/10/24 12:59 Last Admin: 04/13/24 08:04 Dose: 5 mg Buspirone HCl (Buspirone 15 Mg Tab) 15 mg PO BID [facility] Stop: 05/10/24 10:43 Last Admin: 04/13/24 08:06 Dose: 15 mg Enoxaparin Sodium (Enoxaparin Inj 40 Mg/0.4 Ml Syr) 40 mg SQ Q24H [facility] Stop: 05/10/24 20:59 Last Admin: 04/12/24 19:15 Dose: Not Given Fluconazole (Fluconazole 100 Mg Tab) 200 mg PO QAM [facility] Stop: 04/22/24 14:04 Last Admin: 04/13/24 08:04 Dose: 200 mg Hydroxyzine HCl (Hydroxyzine Hcl 25 Mg Tab) 25 mg PO QID PRN PRN Reason: Anxiety/Agitation Stop: 05/10/24 10:43 Lorazepam (Lorazepam 1 Mg Tab) 1 mg PO HS PRN PRN Reason: Insomnia Stop: 05/10/24 12:43 Last Admin: 04/12/24 20:17 Dose: 1 mg Lorazepam (Lorazepam 0.5 Mg Tab) 0.5 mg PO BID PRN PRN Reason: Anxiety Stop: 05/12/24 10:59 Last Admin: 04/12/24 13:02 Dose: 0.5 mg Melatonin (Melatonin 3 Mg Tab) 3 mg PO HS PRN PRN Reason: Insomnia Stop: 05/10/24 10:43 Last Admin: 04/12/24 20:17 Dose: 3 mg Miscellaneous (Remove Nicoderm Patch) 1 each N/A DAILY@0859 [facility] Stop: 05/12/24 08:58 Last Admin: 04/13/24 08:02 Dose: Not Given Nicotine (Nicotine 14 Mg/24 Hr Patch) 1 patch TD QAM [facility] Stop: 05/11/24 19:14 Last Admin: 04/13/24 08:06 Dose: Not Given Ondansetron HCl (Ondansetron Inj 2 Mg/Ml 2 Ml Vial) 4 mg IV Q6H PRN PRN Reason: Nausea Stop: 05/10/24 10:43 Pantoprazole Sodium (Pantoprazole 40 Mg Tab) 40 mg PO BID [facility] Stop: 05/10/24 20:59 Last Admin: 04/13/24 08:06 Dose: 40 mg Propranolol HCl (Propranolol Hcl 20 Mg Tab) 20 mg PO BID [facility] Stop: 05/10/24 10:43 Last Admin: 04/13/24 08:05 Dose: 20 mg Quetiapine Fumarate (Quetiapine Fumarate 200 Mg Tab) 200 mg PO HS [facility] Stop: 05/10/24 20:59 Last Admin: 04/12/24 20:07 Dose: 200 mg Sucralfate (Sucralfate 1 Gm/10 Ml Udc) 1 gm PO QID [facility] Stop: 05/10/24 20:59 Last Admin: 04/13/24 11:53 Dose: 1 gm Venlafaxine HCl (Venlafaxine Hcl Xr 75 Mg Capxr) 225 mg PO QAM [facility] Stop: 05/10/24 10:43 Last Admin: 04/13/24 08:05 Dose: 225 mg Mental Health & Subst Abuse Tx Therapist Name of Therapist: None Bandmill Operator Name of Bandmill Operator: None Post Discharge Appointments Primary Care Physician Name Of Family Doctor/PCP: Joe Ortiz (9) GERD (gastroesophageal reflux disease) Esophagitis presence: esophagitis presence not specified Qualified Code(s): K21.9 - Gastro-esophageal reflux disease without esophagitis (10) HIV (human immunodeficiency virus infection) HIV symptom status: unspecified Qualified Code(s): B20 - Human immunodeficiency virus [HIV] disease
[2024-04-13 16:05] VITALS: RESP 18
--- NOTE | 2024-04-13 16:15 | Electrocardiogram Report ---
Test Reason : Blood Pressure : */* mmHG Vent. Rate : 99 BPM Atrial Rate : 99 BPM P-R Int : 138 ms QRS Dur : 84 ms QT Int : 352 ms P-R-T Axes : 66 77 63 degrees QTcB Int : 451 ms Normal sinus rhythm Possible Left atrial enlargement Borderline ECG When compared with ECG of 24-Dec-2022 12:35, ST now depressed in Anterior leads Confirmed by Urbano Knight ([id number] on 04/13/2024 4:14:56 PM Referred By: REFERRED SELF Confirmed By: Urbano Knight
--- NOTE | 2024-04-13 16:18 | Hospitalist Progress Note ---
Date of Service April 13, 2024 Assessment & Plan (1) Suicidal ideation: Plan: Patient endorsed thoughts of self-harm and suicidal ideations on admission Continues with intermittent SIs H/o suicide attempt in 2019 One-to-one observation Safe tray Appreciate recs by psychiatry - part psychiatrist recommendations today which I reviewed he would benefit from inpatient psychiatric stay however Mr. Kearney is currently thinking about it. He will be off of COVID isolation tomorrow morning so this will be a possibility, otherwise from a medical standpoint he is ready for discharge at this time (2) Panic attacks: Plan: cont inderal BID cont seroquel, abilify, ativan prn, atarax prn (3) COVID-19: Plan: COVID (+) on arrival Mild sore throat started about 7 days ago Mild cough only at this time with stable O2 sats and negative cxr Stable labs cont COVID isolation precautions No indication for steroids or anti-virals at this time spoke with our infection pest control specialist --- can d/c COVID isolation on the am of 04/14/24 (4) Anxiety: Plan: see #2 above (5) Dysphagia: Plan: Patient has an upcoming EGD scheduled for May 12 in [place] Has had issues with dry heaving and vomiting after meals Increased his PPI to BID and added carafate QID Symptoms improved but not resolved 2021 EGD at [facility] - candidal esophagitis 2022 EGD at [facility] - erosive esophagitis see below (6) Esophageal candidiasis: Plan: 2021 as seen on EGD patient states some of his current upper GI symptoms remind him of that episode reasonable to treat empirically for such as he has improved but not resolved GERD symptoms despite optimal acid suppression (PPI bid, carafate qid) EKG at admission with normal QTc start diflucan 200mg daily treat 10-14 days QTc on most recent EKG wnl (7) GERD (gastroesophageal reflux disease): Plan: PPI carafate as above (8) HIV (human immunodeficiency virus infection): Plan: Currently on Cabenuva injections Stable CBC and WBC count Records indicate last HIV viral load was undetectable and CD4 count was >500 (9) History of suicide attempt: (10) Tobacco abuse: Plan: nicoderm patch daily (11) Speech abnormality: Plan: patient had difficulty with speech the evening of 04/09 in the setting of extreme anxiety/panic attack he went to [facility] [place] PM of 04/09 I received those records today he underwent stroke w/u with CT head & CTA head/neck all of which were negative; brain MRI not performed he was d/c and was told his symptoms were likely due to anxiety to be complete could consider brain MRI and echo - defer for now Plan DVT proph - lovenox fiance updated at bedside today of note - I spoke with infection control --- patient's COVID isolation can be discontinued on 04/14 AM made psychiatry aware Admission and Anticipated Discharge Date Admission Date: April 10, 2024 Subjective continues depressed mood mild COVID symptoms essentially resolved thinking about whether he would go to inpatient psychiatric admission vs home, going to discuss with his so Physical Exam Physical Exam: PHYSICAL EXAMINATION Last 24h vital signs reviewed, see documentation in flowsheet General: comfortable appearing, no distress HEENT: Normocephalic, atraumatic, pupils round and equal, sclerae anicteric, no conjunctival injection, moist mucus membranes Lungs: Normal respiratory effort. no coughing Heart: deferred Abdomen: nondistended Extremities: Warm, dry, well-perfused. No extremity edema. Neuro: Alert and oriented x 4, face symmetric, moves 4 extremities well Psych: depressed affect and mood, normal behavior Results & Data Results & Data Vital Signs (Past 12 Hours) Vital Signs Temp Pulse Pulse Resp BP BP Pulse Ox 04/13/24 16:04 98.4 F 76 18 151/105 H 96 04/13/24 14:50 98.1 F 76 16 144/97 H 95 04/13/24 08:02 97.7 F 84 17 130/91 94 O2 Del Method 04/13/24 16:04 Room Air 04/13/24 14:50 Room Air 04/13/24 08:02 Room Air PG Care Time/CCT Total # of Minutes Spent Total Time Spent with Patient: Total time spent is greater than 50% in coordination of care (as documented) at patient's floor/unit and/or counseling patient: Coding Level of Care Code 94135 SUB INP/OBS CARE 05/15MIN Diagnoses Suicidal ideation R45.851 Panic attacks F41.0 COVID-19 U07.1 Anxiety F41.9 Dysphagia R13.10 Esophageal candidiasis B37.81 Gastroesophageal reflux disease, esophagitis presence not specified K21.9 Esophagitis presence: esophagitis presence not specified HIV (human immunodeficiency virus infection) B20 HIV symptom status: unspecified History of suicide attempt Z91.51 Tobacco abuse Z72.0 Speech abnormality R47.9 (7) GERD (gastroesophageal reflux disease) Esophagitis presence: esophagitis presence not specified Qualified Code(s): K21.9 - Gastro-esophageal reflux disease without esophagitis (8) HIV (human immunodeficiency virus infection) HIV symptom status: unspecified Qualified Code(s): B20 - Human immunodeficiency virus [HIV] disease
[2024-04-13] MEDS: hydrOXYzine HCl 25 MG TAB PO PRN (16:54)
[2024-04-14 08:52] VITALS: TEMP 97.9; O2SAT 95
--- NOTE | 2024-04-14 12:20 | Electrocardiogram Report ---
Test Reason : Blood Pressure : */* mmHG Vent. Rate : 74 BPM Atrial Rate : 74 BPM P-R Int : 148 ms QRS Dur : 84 ms QT Int : 366 ms P-R-T Axes : 65 61 55 degrees QTcB Int : 406 ms Normal sinus rhythm Normal ECG When compared with ECG of 10-Apr-2024 04:02, No significant change was found Confirmed by Jr Case ([id number]) on 04/14/2024 12:20:04 PM Referred By: REFERRED SELF Confirmed By: Jr Case
[2024-04-14] MEDS ORDERED: hydrOXYzine HCl 25 MG TAB PO PRN (12:55)
--- NOTE | 2024-04-14 13:19 | Discharge Summary ---
Discharge Summary Date of Service date of admission - April 10, 2024 date of discharge - April 14, 2024 Principal Dx & Hospital Course #1 = Principal Diagnosis (1) Suicidal ideation: Patient endorsed thoughts of self-harm and suicidal ideations on admission He continued with intermittent suicidal ideation following admission H/o suicide attempt in 2019 He was placed on One-to-one observation He was seen by [facility] Psychiatry advised addition of Abilify 5mg daily, hydroxyzine prn anxiety/sleep, and discontinuation of prazosin Patient admitted to pending legal charges and other psychosocial stressors feeding into his severe anxiety, depression, and suicidal ideation As his hospitalization went on his suicidal ideation resolved Psychiatry ultimately felt he did NOT require involuntary commitment to the behavioral health unit By time of discharge psychiatry recommended close outpatient follow-up with his outpatient psychiatrist & counselor (2) Panic attacks: cont inderal BID cont seroquel, abilify, atarax prn (3) COVID-19: COVID (+) on arrival Mild sore throat started about 5 days prior to admission At time of admission he only had mild cough only During the entire stay he had stable O2 sats CXR was negative for pneumonia Stable labs There was no indication for steroids or anti-virals while hospitalized He required COVID isolation precautions during his stay, but COVID isolation was discontinued on the am of 04/14/24 per infection control guidelines (4) Anxiety: see #2 above (5) Dysphagia: Patient has an upcoming EGD scheduled for May 12, 2024, in [place] Has had issues with dry heaving and vomiting after meals Increased his PPI to BID and added carafate QID Symptoms improved with such 2021 EGD at [facility] - candidal esophagitis 2022 EGD at [facility] - erosive esophagitis see below (6) Esophageal candidiasis: 2021 as seen on EGD patient states some of his current upper GI symptoms remind him of that episode reasonable to treat empirically for such as he has improved but not resolved GERD symptoms despite optimal acid suppression (PPI bid, carafate qid) EKG at admission with normal QTc EKG later in the admission still with normal QTc treated with diflucan 200mg daily x 10 days f/u in [place] for EGD in April (7) GERD (gastroesophageal reflux disease): PPI carafate as above (8) HIV (human immunodeficiency virus infection): Currently on Cabenuva injections Stable CBC and WBC count while here Records indicate last HIV viral load was undetectable and CD4 count was >500 (9) History of suicide attempt: 2019 (10) Tobacco abuse: nicoderm patch daily while here (11) Speech abnormality: patient had difficulty with speech the evening of 04/09 in the setting of extreme anxiety/panic attack he went to [facility] PM of 04/09 for ER evaluation I received those records and reviewed them in detail he underwent stroke w/u with CT head & CTA head/neck all of which were negative; brain MRI not performed he was d/c and was told his symptoms were likely due to anxiety to be complete could consider brain MRI and echo but both were deferred while here Plan DVT proph - lovenox daily utilized Notes For Next Care Provider Medication Changes From Visit protonix 40mg BID carafate 1gm AC x 7 days fluconazole 200mg daily x 7 days Abilify 5mg daily hydroxyzine 25mg prn anxiety/insomnia Admission HPI Per Admitting Provider Joe Kearney is a 48-year-old male with PMH of HIV, IV drug abuse, GERD, esophag eal dysphagia, anorexia, anxiety, depression, Tylenol overdose, mood disorder, and suicide attempts. He presented on 04/10 for progressively worsening panic attacks over the past week. Patient's fianc (Juan Luis) is present at the bedside and provides additional history. Patient reports that he is recently been involved in some legal issues, and has many new life stressors. Last night, he and his fiance went to [facility] as the patient was concerned he was having a stroke when his panic attack became so bad that he could not "get his words out" and began having difficulty walking because he was shaking so bad. No stroke like symptoms were appreciated at that time (patient cannot deny slurred speech, he did not appreciate any facial droop or unilateral deficits); patient denies history of stroke, and reports negative workup at [place]. The patient has not had panic attacks in the past, over the past week, he has been experiencing progressively worsened panic attacks that involve shaking, difficulty breathing, pressured speech, and at times inability to speak. Fianc reports that he has also not been sleeping or eating. Patient endorses thoughts of self-harm, as well as suicidal ideations. He denies thoughts of harming others. He denies any drug ingestions or overdose attempts. He does have a prior suicide attempt in 2019. Additionally he has a history of IV drug use, but denies any recent use. Patient currently has HIV and is on Cabenuva, which she reports good compliance with. It should be noted that patient tested positive for COVID on arrival, but reports that he is currently asymptomatic: No fever, chills, night sweats, cough, SOB, ORO, or lightheadedness. Patient's fianc reports that his dad (as well as several other family members) have recently tested positive for COVID. Patient is up-to-date with his COVID vaccinations and boosters. He also reports that he has had COVID in the past. No past pulmonary history such as asthma, COPD, or DVT/PE. Patient is a current everyday tobacco cigarette smoker; 1 PPD. He also endorses using medical marijuana. No recent alcohol use. Additionally, patient has had ongoing issues with eating and is scheduled for an EGD on May 12; he reports that after eating sometimes he will begin coughing and dry heaving, then vomit. Patient's vitals are stable at time of admission; SpO2 99% on RA. ED course: Hydroxyzine 25 mg IM ROS: Patient endorses anxiety, panic attacks, migraines, and vomiting (ongoing; patient will occasionally start coughing and dry heaving after eating meals) Patient denies fever, chills, night sweats, dizziness, lightheadedness, chest pain, chest pressure, SOB, cough, pleuritic CP, diarrhea, burning with urination, or blood in the urine or stool. Discharge Exam gen - NAD, lying comfortably in bed, looks well neck - no JVD mouth - MMM, no thrush heart - RRR, s1 s2, no murmur lungs - CTA b/l abd - soft NT ND BS+; no HSM ext - no edema, pulses 2+ b/l psych - a/o x 3; affect wnl today; no suicidal ideation Discharge Plan Discharge Items Patient Disposition: Home - Self-Care Reason For Visit: SUICIDAL IDEATION, PANIC ATTACKS, COVID Discharge Diagnosis: 1. suicidal thoughts/ideation - resolved 2. panic attacks/anxiety 3. depression 4. COVID-19 infection - resolved 5. history of esophagitis 6. history of wendy (yeast) of the esophagus 7. insomnia 8. recent episode of difficulty speaking - no recurrence; CT head and CTA head/neck at [facility] -- all studies normal 9. HIV 10. tobacco use Activity: As commented below Activity Comment: gradually resume activities over the next few days Non-emergency contact: Primary Care Provider and Psychiatrist Call non-emergency contact if: you have any medication questions and your symptoms worsen Follow-up/Referrals: Joe Ortiz MD [Primary Care Provider] - (see your family doctor in 1 week) Diet: Regular Addtl Attending Provider Instructions: Mr Kearney, You were hospitalized after having had suicidal thoughts. At time of admission you tested positive for COVID-19 infection. Fortunately your COVID symptoms were relatively mild - dry cough, fatigue, prior sore throat, etc. Your chest x-ray did not show pneumonia. Lab work was normal while here. Following admission [facility] [address] Psychiatry saw you in consult. They recommended the following - * STOP your prazosin * START aripiprazole 5mg daily - this is for depression & mood * START hydroxyzine 25mg every 6 hours as needed for anxiety or sleep * CONTINUE your buspirone, quetiapine, and your venlafaxine as previous During the stay you did not need any specific treatment for your COVID infection. At this time your isolation period is over. This means that you can be around others and not worry about passing it on to them. You are unlikely to be contagious at this point. Finally, you had mentioned the upper gastrointestinal problems you had been having. We increased your protonix and added sucralfate (carafate) to treat GERD/acid and your symptoms improved. Also, because of your prior history of wendy/yeast in the esophagus, we placed you on empiric fluconazole just to be safe. Please keep your appointment for your upper endoscopy in April. Medicines for your esophagus/stomach - * pantoprazole 40mg - increase to twice daily * sucralfate 1gm three times daily before meals x 7 days * fluconazole 200mg once daily x 7 days, first dose tomorrow 04/15 Follow-up - see your family doctor in 1 week; see your mental health providers as scheduled Return to [facility] [address] if - * you have fevers over 100 degrees * you have thoughts of hurting yourself or anyone else * you have shortness of breath or chest pain * you have difficulty swallowing or severe vomiting * any other concerns It was our pleasure to care for you! Happy holidays :) Pending Studies at Discharge: No Stand-Alone Forms: My [facility], Smoking Cessation Medications and DC Order Prescriptions: New hydroxyzine HCl 25 mg Tablet 25 mg PO Q6H PRN (Reason: anxiety or sleep) Qty: 20 0RF sucralfate 1 gram Tablet 1 g PO AC 7 Days Qty: 21 0RF pantoprazole 40 mg Tablet,Delayed Release (Dr/Ec) 40 mg PO BID Qty: 60 1RF aripiprazole [Abilify] 5 mg tablet 5 mg PO DAILY Qty: 30 1RF fluconazole [Diflucan] 200 mg tablet 200 mg PO DAILY 7 Days Qty: 7 0RF Rx Instructions: start 04/15/24. Continued venlafaxine [Effexor XR] 150 mg capsule,extended release 24hr 225 mg PO QAM Cabenuva 400 mg/2 mL- 600 mg/2 mL Suspension,Extended Release 2 ml IM [id number] Rx Instructions: CABOTEGRAVIR: Inject 2 mL (400 mg) intramuscularly once every 2 months; RILPIVIRINE: Inject 2 mL (600 mg) intramuscularly once every 2 months quetiapine [Seroquel] 200 mg Tablet 200 mg PO HS buspirone 15 mg Tablet 15 mg PO BID propranolol 20 mg Tablet 20 mg PO BID Discontinued prazosin 1 mg Capsule 1 mg PO HS Discharge Orders: Discharge Order (Routine); Ordered 04/14/24 Ordered By: Pratik Tyler/Other Patient Handouts: Esophagitis, What Is GERD? Admission Data Admit Date/Time: 04/10/24 08:31 Attending Provider: Pratik Chau Admit Provider: Sebastien Patino Primary Care Provider: Joe Ortiz Other Providers: Ben Prater Other Interventions: Discharge Summary Assessment (RN) Last Done: 04/14/24 13:49 PSY Interdisciplinary Discharge Planning Last Done: 04/14/24 13:26 Hospital Stay Data Consultations [facility] [address] [facility] Psychiatry Diagnostic Imagining Performed Chest X-Ray 04/10/24 08:55 EXAM: Radiograph of the Chest 1 View INDICATION: COVID. TECHNIQUE: Frontal view of the chest. COMPARISON: 12/24/2022 FINDINGS: Lungs and pleural spaces: Stable symmetrical interstitial scarring without pulmonary infiltrate, pleural effusion or pneumothorax. Heart: Shape and configuration within normal limits allowing for technique. Mediastinum: Normal contour. Bones/joints: Old right rib fractures. Stable dense osseous structures. No acute osseous abnormality. Soft tissues: No abnormality noted. No radiopaque foreign body noted. Upper abdomen: No abnormality noted. IMPRESSION: Stable chronic changes. No acute disease. ACT 112: Negative or not required by law. Electronically signed by Sera Posada 04-10-2024 09:16 AM Pending Results Patient Have Any Pending Studies at Discharge: No Discharge Instructions Given to Patient (Per Discharging Provider) Mr Kearney, You were hospitalized after having had suicidal thoughts. At time of admission you tested positive for COVID-19 infection. Fortunately your COVID symptoms were relatively mild - dry cough, fatigue, prior sore throat, etc. Your chest x-ray did not show pneumonia. Lab work was normal while here. Following admission [facility] [address] Psychiatry saw you in consult. They recommended the following - * STOP your prazosin * START aripiprazole 5mg daily - this is for depression & mood * START hydroxyzine 25mg every 6 hours as needed for anxiety or sleep * CONTINUE your buspirone, quetiapine, and your venlafaxine as previous During the stay you did not need any specific treatment for your COVID infection. At this time your isolation period is over. This means that you can be around others and not worry about passing it on to them. You are unlikely to be contagious at this point. Finally, you had mentioned the upper gastrointestinal problems you had been having. We increased your protonix and added sucralfate (carafate) to treat GERD/acid and your symptoms improved. Also, because of your prior history of wendy/yeast in the esophagus, we placed you on empiric fluconazole just to be safe. Please keep your appointment for your upper endoscopy in April. Medicines for your esophagus/stomach - * pantoprazole 40mg - increase to twice daily * sucralfate 1gm three times daily before meals x 7 days * fluconazole 200mg once daily x 7 days, first dose tomorrow 04/15 Follow-up - see your family doctor in 1 week; see your mental health providers as scheduled Return to [facility] [address] if - * you have fevers over 100 degrees * you have thoughts of hurting yourself or anyone else * you have shortness of breath or chest pain * you have difficulty swallowing or severe vomiting * any other concerns It was our pleasure to care for you! Happy holidays :) Total Time Total Time Spent Total Time Spent (In Minutes): 40 Coding Level of Care Code 37357 INP/OBS DISCH >30 MIN Diagnoses Suicidal ideation R45.851 Panic attacks F41.0 COVID-19 U07.1 Anxiety F41.9 Dysphagia R13.10 Esophageal candidiasis B37.81 Gastroesophageal reflux disease, esophagitis presence not specified K21.9 Esophagitis presence: esophagitis presence not specified HIV (human immunodeficiency virus infection) B20 HIV symptom status: unspecified History of suicide attempt Z91.51 Tobacco abuse Z72.0 Speech abnormality R47.9
[2024-04-14] MEDS ORDERED: hydrOXYzine HCl 25 MG TAB PO SCH (13:21)
[2024-04-14 13:26] VITALS: BP 148/96; PULSE 76
[2024-04-14] MEDS ORDERED: SUCRALFATE 1 GM TAB PO SCH ×2 (13:30→16:30)
--- NOTE | 2024-04-14 13:35 | Psychiatric Progress Note ---
Date of Service April 14, 2024 Impression / Recommendations Impression Joe Kearney is a 48 y/o domiciled at sober living facility, unemployed, homosexual, in a relationship male h/o depression, anxiety, inhalant abuse (air duster), alcohol use d/o in recent remission, dysphagia, HIV (adherent to tx), h/o IVDA who presents with worsening anxiety and depression, suicidal ideation, and physical complaints of dysphagia in the context of escalating legal problems (past DUIs and possible imprisonment). Pt is COVID-19 positive. Psychiatry consulted for evaluation and management. Presentation consistent with MDD, recurrent, episode with anxious distress. H/o past major depressive episodes. Recent anxiety symptoms likely multifactorial; coping with legal problems in the setting of worsening depression and physical ailments. Patient would benefit from inpatient psychiatry admission however currently COVID-19 positive and will continue to manage his care as a PSOC. A:Pt presenting good sleep. Less anxious ruminations. Denial of SI since yesterday and pt is future oriented. Support seeking. Fiance presents no safety concerns. Educated about dx, tx and prognosis. Safe for discharge. Aftercare established by [facility]. Overall, I spent a total of 40 minutes with this case including review of chart records, nursing report, review of lab work, direct evaluation of the patient at bedside, counseling the patient, discussion of the patient with the hospitalist provider, discussion with the psychiatric liaison during clinical rounds, collateral from finance, and documentation in the electronic health record. (1) Major depressive disorder, recurrent episode with anxious distress: (2) Legal problem: (3) Inhalant abuse: (4) Alcohol use disorder in remission: (5) Hx of intravenous drug use, in remission: (6) Tobacco use disorder: (7) COVID-19: (8) Dysphagia: (9) GERD (gastroesophageal reflux disease): (10) HIV (human immunodeficiency virus infection): Plan 04/14/24: Safe for discharge from psychiatric perspective Do not recommend Lorazepam on discharge given chronic h/o substance problems Hydroxyzine 50mg BID PRN for anxiety/insomnia upon discharge 04/13/24: D/c daytime Lorazepam PRN. Continue other medications. 04/12/24: Lorazepam PRN changed to 0.5mg BID PRN for anxiety and 1mg HS PRN for insomnia 04/11/24: Continue medications and treatment plan. 04/10/24: Bedside sitter Suicide precautions Safety tray Continue home Effexor 225mg QAM, Seroquel 200mg HS, Propranolol 20mg BID, Buspirone 15mg BID D/c Prazosin 1mg HS Start Abilify 5mg QD Start Lorazepam 1mg BID PRN for anxiety/insomnia Risk Factors Assessment Do You Have Access To A Gun?: No Protective Factors Assessment Employed: Yes ([employer]) Interval History Identifying Information Joe Kearney is a 48 y/o domiciled at sober living facility, unemployed, homosexual, in a relationship male h/o depression, anxiety, inhalant abuse (air duster), alcohol use d/o in recent remission, dysphagia, HIV (adherent to tx), h/o IVDA who presents with worsening anxiety and depression, suicidal ideation, and physical complaints of dysphagia in the context of escalating legal problems (past DUIs and possible imprisonment). Pt is COVID-19 positive. Psychiatry consulted for evaluation and management. Chief Complaint Depression, anxiety Subjective Subjective Patient was seen & assessed and interval progress reviewed with treatment team nursing and social work Patient seen with hermelinda at bedside. Reports improved mood, less anxious ruminations. Denies SI. Future oriented to spend time with hermelinda and his family during [place]. No other concerns reported. Asking for Vistaril prn. Physical Exam Mental Examination Appearance: Unkempt Eye Contact: Maintains Eye Contact Motor Behavior: Unremarkable Speech: Soft Mood: Euthymic Affect: Congruent and Constricted Thought Process: Intact and Linear Thought Content: Intact Hallucinations: None Insight: Fair (to limited, improved) Judgement: Fair (to limited, adherent to treatment plan) Vital Signs (Past 24 Hours) Last Vital Signs Temp 36.6 C 04/14/24 13:26 Pulse 76 04/14/24 13:26 Resp 18 04/14/24 13:26 BP 148/96 H 04/14/24 13:26 Pulse Ox 95 04/14/24 13:26 O2 Del Method Room Air 04/14/24 08:50 Results & Data ([facility]) Current Inpatient Medications Current Inpatient Medications: Current Inpatient Medications Aripiprazole (Aripiprazole 10 Mg Tab) 5 mg PO QAM [facility] Stop: 05/10/24 12:59 Last Admin: 04/14/24 08:28 Dose: 5 mg Buspirone HCl (Buspirone 15 Mg Tab) 15 mg PO BID [facility] Stop: 05/10/24 10:43 Last Admin: 04/14/24 08:27 Dose: 15 mg Enoxaparin Sodium (Enoxaparin Inj 40 Mg/0.4 Ml Syr) 40 mg SQ Q24H [facility] Stop: 05/10/24 20:59 Last Admin: 04/13/24 20:19 Dose: Not Given Fluconazole (Fluconazole 100 Mg Tab) [facility] Stop: 04/22/24 14:04 Last Admin: 04/14/24 08:30 Dose: 200 mg Hydroxyzine HCl (Hydroxyzine Hcl 25 Mg Tab) 25 mg PO QID PRN PRN Reason: Anxiety/Agitation Stop: 05/10/24 10:43 Last Admin: 04/14/24 09:25 Dose: 25 mg Hydroxyzine HCl (Hydroxyzine Hcl 25 Mg Tab) 25 mg PO Q6H PRN PRN Reason: anxiety or sleep Stop: 05/14/24 12:54 Hydroxyzine HCl (Hydroxyzine Hcl 25 Mg Tab) 25 mg PO Q6H PRN Reason: anxiety or sleep Stop: 04/15/24 13:21 Lorazepam (Lorazepam 1 Mg Tab) 1 mg PO HS PRN PRN Reason: Insomnia Stop: 05/10/24 12:43 Last Admin: 04/13/24 20:20 Dose: 1 mg Melatonin (Melatonin 3 Mg Tab) 3 mg PO HS PRN PRN Reason: Insomnia Stop: 05/10/24 10:43 Last Admin: 04/13/24 20:20 Dose: 3 mg Miscellaneous (Remove Nicoderm Patch) 1 each N/A DAILY@[id number] [facility] Stop: 05/12/24 08:58 Last Admin: 04/14/24 08:29 Dose: 1 each Nicotine (Nicotine 14 Mg/24 Hr Patch) 1 patch TD [facility] Stop: 05/11/24 19:14 Last Admin: 04/14/24 08:29 Dose: 1 patch Ondansetron HCl (Ondansetron Inj 2 Mg/Ml 2 Ml Vial) 4 mg IV Q6H PRN PRN Reason: Nausea Stop: 05/10/24 10:43 Pantoprazole Sodium (Pantoprazole 40 Mg Tab) 40 mg PO BID [facility] Stop: 05/10/24 20:59 Last Admin: 04/14/24 08:29 Dose: 40 mg Propranolol HCl (Propranolol Hcl 20 Mg Tab) 20 mg PO BID [facility] Stop: 05/10/24 10:43 Last Admin: 04/14/24 08:28 Dose: 20 mg Quetiapine Fumarate (Quetiapine Fumarate 200 Mg Tab) 200 mg PO HS [facility] Stop: 05/10/24 20:59 Last Admin: 04/13/24 20:19 Dose: 200 mg Sucralfate (Sucralfate 1 Gm/10 Ml Udc) 1 gm PO QID [facility] Stop: 05/10/24 20:59 Last Admin: 04/14/24 12:17 Dose: 1 gm Sucralfate (Sucralfate 1 Gm Tab) 1 gm PO AC [facility] Stop: 05/14/24 16:29 Sucralfate (Sucralfate 1 Gm Tab) 1 gm PO AC Stop: 04/15/24 13:25 Venlafaxine HCl (Venlafaxine Hcl Xr 75 Mg Capxr) 225 mg PO QAM [facility] Stop: 05/10/24 10:43 Last Admin: 04/14/24 08:27 Dose: 225 mg Mental Health & Subst Abuse Tx Psychiatrist Name of Psychiatrist: [facility] Date Of Appointment With Psychiatric Provider: 04/28/24 Time of Appointment with Psychiatrist: 0930 Therapist Name of Therapist: [facility] Date of Therapist Appointment: 05/05/2024 Time of Therapist Appointment: 1000 Business Taxes Specialist Name of Business Taxes Specialist: None Post Discharge Appointments Primary Care Physician Name Of Family Doctor/PCP: [facility] Home Health Services:: None (9) GERD (gastroesophageal reflux disease) Esophagitis presence: esophagitis presence not specified Qualified Code(s): K21.9 - Gastro-esophageal reflux disease without esophagitis (10) HIV (human immunodeficiency virus infection) HIV symptom status: unspecified Qualified Code(s): B20 - Human immunodeficiency virus [HIV] disease
== END 2024-04-14 14:13 | disposition home or self-care (01) | DRG 177 ==
LOC: ED 03:48 → SUATTDRO 08:31 → EDINP 08:31 → 3E 10:44
DX: U07.1 COVID-19; Z79.899 Other long term (current) drug therapy; F10.11 Alcohol abuse, in remission; B37.81 Candidal esophagitis; Z91.51 Personal history of suicidal behavior; F33.9 Major depressive disorder, recurrent, unspecified; F17.210 Nicotine dependence, cigarettes, uncomplicated; E43 Unspecified severe protein-calorie malnutrition; Z68.23 Body mass index [BMI] 23.0-23.9, adult; Z81.8 Family history of other mental and behavioral disorders; F41.0 Panic disorder [episodic paroxysmal anxiety]; Z21 Asymptomatic human immunodeficiency virus [HIV] infection status; R47.9 Unspecified speech disturbances; K21.9 Gastro-esophageal reflux disease without esophagitis; F18.10 Inhalant abuse, uncomplicated; R13.10 Dysphagia, unspecified; Z88.6 Allergy status to analgesic agent; R45.851 Suicidal ideations; Z65.3 Problems related to other legal circumstances

== ENCOUNTER 2024-04-28 16:58 | Inpatient (IN) ==
--- NOTE | 2024-04-28 17:11 | ED Triage Note ---
Date of Service April 28, 2024 Provider in Triage Author: Juana Ascencio History of Present Illness This patient was briefly evaluated while in triage. An abbreviated physical exam was performed. This patient is a 48-year-old Male who presents to the ED for evaluation of difficulty breathing, can't think, doesn't know what he is doing, and states he can't live like this. Pt. feeling very anxious. Pt. does admit to suicidal ideation but states "I don't know" if asked if he has a plan. Physical Exam VITALS: Vitals are noted on the nurse's note and reviewed by myself. GENERAL: This is a 48 year old male, in no acute distress, nondiaphoretic, well- developed well-nourished. SKIN: No obvious rashes, edema, erythema HEAD: Normocephalic atraumatic. EYES: Conjunctivae without injection, sclerae without icterus. NECK: No JVD. LUNGS: No retractions or accessory muscle use. MUSCULOSKELETAL: Normal gait. NEURO: Patient was alert and oriented to person place and time. No focal neurological deficits. Initial orders for labs and / or imaging were placed and patient was placed in the waiting area until a bed is available. Please see further documentation for the full ED course.
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
[2024-04-28 17:59] LABS: Basophils # (auto) 0.04 K/uL (0.00-0.20); Basophils % (auto) 0.5 %; Eosinophils # (auto) 0.06 K/uL (0.00-0.50); Eosinophils % (auto) 0.7 %; Hematocrit (blood only) 40.4 % (42.0-52.0); Hemoglobin 14.2 g/dl (14.0-18.0); Immature Granulocytes # (auto) 0.02 K/uL (0.01-0.20); Immature Granulocytes % (auto) 0.2 %; Lymphocytes # (auto) 2.59 K/uL (1.20-3.40); Lymphocytes % (auto) 29.3 %; Mean Corpuscular Hemoglobin 33.4 pg (25.0-34.0); Mean Corpuscular Hgb Conc 35.1 g/dL (32.0-36.0); Mean Corpuscular Volume 95.1 fL (80.0-100.0); Mean Platelet Volume 9.5 fL (9.4-12.4); Monocytes # (auto) 0.51 K/uL (0.11-0.59); Monocytes % (auto) 5.8 %; Neutrophils # (auto) 5.61 K/uL (1.40-6.50); Neutrophils % (auto) 63.5 %; Platelet Count 334 K/uL (130-400); RDW Standard Deviation 45.6 fL (36.4-46.3); Red Blood Count 4.25 M/uL (4.70-6.10); White Blood Count 8.83 K/ul (4.8-10.8)
--- NOTE | 2024-04-28 18:09 | XRay Report ---
Chest radiograph, one view History: Chest pain Comparison: 04/10/2024 Findings: Single AP view of the chest performed. No focal consolidation or pleural effusion. No pneumothorax. The cardiomediastinal silhouette is within normal limits. Normal pulmonary vascularity. No evidence for lymphadenopathy. No visualized bony or soft tissue abnormality. Chronic right rib deformities again seen. Impression: Normal chest radiograph Electronically signed by Urbano Rothman 04-28-2024 6:09 PM
[2024-04-28 18:23] LABS: Acetaminophen < 3 ug/ml (10-30); Salicylate < 3.0 mg/dl (3.0-30)
[2024-04-28 18:24] LABS: Amphetamines+Metham, Urine Neg (Neg); Barbiturates, Urine Neg (Neg); Benzodiazepine, Urine Neg (Neg); Cocaine, Urine Neg (Neg); Fentanyl, Urine Neg (Neg); MDMA (Ecstacy), Urine Neg (Neg); Marijuana, Urine Pos (Neg); Methadone, Urine Neg (Neg); Opiate, Urine Neg (Neg); Phencyclidine, Urine Neg (Neg)
[2024-04-28 18:27] LABS: Appearance Urine Cloudy (Clear); Bacteria Urine Automated None Seen (None Seen); Bilirubin Urine Negative (Negative); Blood Urine Negative (Negative); Calcium Oxalate Crystals Urine Present (None Prsent); Color Urine Dark Yellow; Epithelial Cell Urine Auto 0-2 /hpf (0-2); Glucose Urine UA Negative (Negative); Ketones Urine 1+ (Negative); Leukocyte Esterase Urine Negative (Negative); Mucus Urine Present (None Prsent); Nitrite Urine Negative (Negative); Protein Urine Trace (Negative); Specific Gravity Urine 1.025 (1.000-1.030); Urobilinogen Urine Negative (Negative)
[2024-04-28 18:28] LABS: Alanine Aminotransferase 12 U/L (7-52); Albumin Globulin Ratio 1.8 (0.9-2); Albumin Level 4.7 gm/dl (3.4-5.0); Alkaline Phosphatase 52 U/L (34-104); Anion Gap 7 (3-11); Aspartate Aminotransferase 15 U/L (13-39); BUN Creatinine Ratio 14.6 (10-20); Bilirubin,Total 0.4 mg/dl (0.2-1.0); Blood Urea Nitrogen 14 mg/dl (6-23); Calcium 9.7 mg/dl (8.6-10.3); Carbon Dioxide 30 mmol/L (21-32); Chloride 104 mmol/L (98-107); Creatinine Clr Calc Pharmacy 94.1 ml/min; Globulin 2.6 gm/dl (2.5-4.0); Glucose 103 mg/dl (70-99(Fasting)); Potassium 3.6 mmol/L (3.5-5.1); Sodium 141 mmol/L (136-145); Total Protein 7.3 gm/dl (6.0-8.3)
[2024-04-28 18:35] LABS: Troponin I High Sensitivity < 2.3 pg/ml (0-20)
[2024-04-28 18:36] LABS: D Dimer 370 ug/L FEU (0-500); Partial Thromboplastin Time 26 Seconds (21-31); Prothrombin Time 10.8 Seconds (9.0-12.0)
[2024-04-28 18:44] LABS: Thyroid Stimulating Hormone 0.367 uIu/ml (0.300-4.500)
[2024-04-28] MEDS ORDERED: BISMUTH SUBSALICYLATE 262 MG CHEW PO PRN (22:47)
[2024-04-28] MEDS ORDERED: SODIUM CHLORIDE 0.65% NA SOLN 45 ML (OCEAN) PRN (22:47)
[2024-04-28] MEDS ORDERED: MAGNESIUM HYDROXIDE SUSP 30 ML UDC PO PRN (22:47)
[2024-04-28] MEDS ORDERED: ALUMINUM/MAGNESIUM SUSP 30 ML UDC PO PRN (22:47)
[2024-04-28] MEDS: busPIRone 15 MG TAB PO STA (23:07)
[2024-04-28] MEDS: PROPRANOLOL HCL 20 MG TAB PO STA (23:07)
[2024-04-28] MEDS: QUEtiapine FUMARATE 200 MG TAB PO STA (23:08)
[2024-04-28] MEDS: hydrOXYzine HCl 25 MG TAB PO PRN (23:08)
--- NOTE | 2024-04-29 08:05 | Electrocardiogram Report ---
Test Reason : Blood Pressure : */* mmHG Vent. Rate : 99 BPM Atrial Rate : 99 BPM P-R Int : 138 ms QRS Dur : 80 ms QT Int : 334 ms P-R-T Axes : 72 79 80 degrees QTcB Int : 428 ms Normal sinus rhythm Normal ECG When compared with ECG of 14-Apr-2024 09:08, No significant change Confirmed by Jr Case ([id number]) on 04/29/2024 8:05:01 AM Referred By: Confirmed By: Jr Case
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
[2024-04-29] MEDS: PANTOprazole 40 MG TAB PO SCH (09:38)
[2024-04-29] MEDS: PROPRANOLOL HCL 20 MG TAB PO SCH (09:38)
[2024-04-29] MEDS: VENLAFAXINE HCL XR 75 MG CAPXR PO SCH (09:38)
[2024-04-29] MEDS: busPIRone 15 MG TAB PO SCH (09:38)
[2024-04-29] MEDS: QUEtiapine FUMARATE 200 MG TAB PO SCH (21:38)
[2024-04-29] MEDS: MIRTAZAPINE TAB 15 MG TAB PO SCH (21:38)
--- NOTE | 2024-04-30 08:32 | Psychiatric Progress Note ---
Date of Service April 30, 2024 Impression / Recommendations Impression HIWOT WILSON is a 48-year-old man who currently lives in [facility] in [facility], has a history of PTSD, bipolar disorder (he's unsure about this diagnosis, no clear hx of rogelio), depression, anxiety, social anxiety, and polysubstance use disorder and was admitted on 04/28/24 22:35 on a 201 voluntary commitment for SI with plan of overdosing on Visine and attempt of ingesting a bottle of Visine a week ago. Diagnostically consistent with unspecified depression with differential including major depressive disorder vs substance-induced vs bipolar depression vs adjustment disorder due to new legal charges/upcoming anticipation of extended incarceration as well as ANDREA with panic attacks and polysubstance use disorder. A: Ongoing depression and anxiety but slept a bit better with mirtazapine. Reviewed labwork and elevated HbA1c and TGs, he understands these risks increase with Seroquel, he wishes to continue this for now. At this point ok to continue with Seroquel but ideally over time, as his sleep improves, could transition to an alternative mood stabilizer with fewer metabolic side effects such as [place]. Discussed and reviewed his mood disorder questionnaire which is consistently with likely bipolar affective disorder type II as he identified multiple hypomanic symptoms in the past. Discussed medication treatment options for anxiety. Discussed risks, benefits and alternatives. Patient would like to start and consented to clonidine for off-label use for anxiety. Reviewed side effects including but not limited to low BP and syncope and especially when combined with another BP lowering agent since he is also on propranolol. He understands this and would like to try clonidine in addition to propranolol and his other medications. He is agreeable to adding Vit D supplementation. He's thinking more about residential substance use treatment. Overall, I spent a total of 35 minutes on this case including meeting with the patient, reviewing the chart, nursing report, multidisciplinary team meeting, orders, and documentation. (1) Major depression, recurrent: (2) Suicide attempt: (3) Generalized anxiety disorder with panic attacks: (4) Polysubstance use disorder: (5) HIV (human immunodeficiency virus infection): (6) Legal problem: Plan 04/30/2024: -Start Vit D supplement -Trial of clonidine 0.1mg qAM tomorrow 04/29/2024: The patient was [facility] on q15 min checks (behavioral with suicide precautions) for safety. The patient will participate in group, recreational, and milieu therapies and will be offered additional individual and family sessions as clinically appropriate. -Medications: * Start mirtazapine 15mg HS * Continue Seroquel 200mg HS * Continue Effexor XR 225mg daily * Buspar 15mg BID * Propranolol 20mg BID -Labwork: * HbA1c, fasting lipid panel, Vit D -Questionnaires: * Mood Disorder Q to clarify possible hx of rogelio/hypomania Inventory Assets Strengths: supportive relationships, willing to get treatment Needs: safety and stabilization, medication adjustment, additional coping skills, increased outpatient services Suicide Risk Level Suicide Risk Level: High-Moderate (q15 min suicide checks) (recent suicide attempt without help seeking behaviors initially, ongoing depression and SI but feels safe in the hospital and feels able to ask for support if needed) Risk Factors Assessment Male: Yes Do You Have Access To A Gun?: No Health Problems: Yes Mental Health Diagnoses: Yes Substance Use Disorders: Yes Previous Attempt: Yes Family History of Suicide: No Previous Psychiatric Hospitalization: Yes Hopelessness: Yes Protective Factors Assessment Employed: No Stable Relationships: Yes Supportive Family: Yes (mom) Interval History Identifying Information HIWOT WILSON is a 48-year-old man who currently lives in [facility] in [facility], has a history of PTSD, bipolar disorder (he's unsure about this diagnosis, no clear hx of rogelio), depression, anxiety, social anxiety, and polysubstance use disorder and was admitted on 04/28/24 22:35 on a 201 voluntary commitment for SI with plan of overdosing on Visine and attempt of ingesting a bottle of Visine a week ago. Chief Complaint "Ok I guess". Review of Systems Sleep Information Total Hours of Sleep: 6.5 Meal Information Percent Meal Consumed - Breakfast: 100 Percent Meal Consumed - Lunch: 100 Percent Meal Consumed - Dinner: 75 Subjective Subjective Patient was seen & assessed and interval progress reviewed with treatment team. Elevated BP this morning. Attended some groups yesterday, more in the afternoon/evening. Had visitors, his mother and partner, tearful during the visit. Last night reported mood as "depressed". Today reports he remains depressed but SI has lessened slightly. Slept better with mirtazapine addition last night. Denies any medication side effects. He still feels very anxious, is hopeful something else could be added for this, he wonders about clonidine as we previously discussed this. Reviewed his labwork results, he wants to continue with Seroquel. He's thinking about going to [facility] for residential substance use treatment once his mood improves/he feels safe for dual diagnosis treatment. Physical Exam Psychiatric Orientation: alert and oriented x 3 Apperance: appropriately dressed and appropriately groomed Eye Contact: good eye contact Motor Behavior: no abnormal motor movements Speech: normal rate/rhythm/volume of speech Affect: + constricted affect Mood: + depressed mood and + anxious mood Thought Process: goal directed thought process Thought Content: reality based without delusions Suicidal Thoughts: denies suicidal intent; + reports suicidal thoughts and + reports suicidal plan (none for here, outside hospital to overdose/posioning) Homicidal Thoughts: denies homicidal thoughts Hallucinations: no auditory hallucinations and no visual hallucinations Cognition: recent memory grossly intact, remote memory grossly intact, attention grossly intact and language grossly intact Estimated Intelligence: consistent with education level Insight: + fair insight Judgment: + limited judgement Vital Signs (Past 24 Hours) Last Vital Signs Temp 36.4 C 04/30/24 06:37 Pulse 79 04/30/24 06:44 Resp 17 04/30/24 06:37 BP 147/102 H 04/30/24 06:44 Pulse Ox 98 04/30/24 06:37 O2 Del Method Room Air 04/30/24 06:37 Results & Data ([facility]) Laboratory Results Laboratory Results - last 24 hr 04/30/24 07:47 Estimat Average Glucose Pending Hemoglobin A1c Pending Triglycerides Pending Cholesterol Pending VLDL Cholesterol, Calc Pending HDL Cholesterol Pending Cholesterol/HDL Ratio Pending 25-OH Vitamin D Total Pending Current Inpatient Medications Current Inpatient Medications: Current Inpatient Medications Al Hydrox/Mg Hydrox/Simethicone (Aluminum/Magnesium Susp 30 Ml Udc) 30 ml PO Q4H PRN PRN Reason: GI Upset Stop: 05/28/24 22:46 Bismuth Subsalicylate (Bismuth Subsalicylate 262 Mg Chew) 2 tab PO Q30M PRN PRN Reason: Loose Stool/Diarrhea Stop: 05/28/24 22:46 Buspirone HCl (Buspirone 15 Mg Tab) 15 mg PO BID BARBARA Stop: 05/29/24 08:59 Last Admin: 04/29/24 21:38 Dose: 15 mg Hydroxyzine HCl (Hydroxyzine Hcl 25 Mg Tab) 50 mg PO HSZ PRN PRN Reason: Insomnia Stop: 05/28/24 22:46 Last Admin: 04/28/24 23:08 Dose: 50 mg Hydroxyzine HCl (Hydroxyzine Hcl 25 Mg Tab) 25 mg PO Q4H PRN PRN Reason: Anxiety Stop: 05/28/24 22:46 Magnesium Hydroxide (Magnesium Hydroxide Susp 30 Ml Udc) 30 ml PO DAILY PRN PRN Reason: Constipation Stop: 05/28/24 22:46 Mirtazapine (Mirtazapine Tab 15 Mg Tab) 15 mg PO HS BARBARA Stop: 05/29/24 21:59 Last Admin: 04/29/24 21:38 Dose: 15 mg Pantoprazole Sodium (Pantoprazole 40 Mg Tab) 40 mg PO BID BARBARA Stop: 05/29/24 08:59 Last Admin: 04/29/24 21:37 Dose: 40 mg Propranolol HCl (Propranolol Hcl 20 Mg Tab) 20 mg PO BID BARBARA Stop: 05/29/24 08:59 Last Admin: 04/29/24 21:38 Dose: 20 mg Quetiapine Fumarate (Quetiapine Fumarate 200 Mg Tab) 200 mg PO HS BARBARA Stop: 05/29/24 21:59 Last Admin: 04/29/24 21:38 Dose: 200 mg Sodium Chloride (Sodium Chloride 0.65% Na Soln 45 Ml ([place])) 1 - 2 sprays NA PRN PRN PRN Reason: Nasal Dryness/Congestion Stop: 05/28/24 22:46 Venlafaxine HCl (Venlafaxine Hcl Xr 75 Mg Capxr) 225 mg PO QAM BARBARA Stop: 05/29/24 08:59 Last Admin: 04/29/24 09:38 Dose: 225 mg Mental Health & Subst Abuse Tx Psychiatrist Name of Psychiatrist: [place] [id number] Psychiatrist's Therapist Name of The[place]ist: [place] [id number] Therapist's Date of Therapist Appointment: 05/06/24 Time of Therapist Appointment: 1PM Therapy Appointment Comment: In person Post Discharge Appointments Primary Care Physician Name Of Family Doctor/PCP: Benoit Che @ [facility] Contact Information Discharge Discharge Address: [address] [facility] [place] [address]
[2024-04-30 08:39] LABS: Estimated Average Glucose 117 mg/dl; Hemoglobin A1C 5.7 % (4.5-5.6)
[2024-04-30 08:44] LABS: Chol HDL Ratio 4.1 (0-5)
[2024-04-30] MEDS: hydrOXYzine HCl 25 MG TAB PO PRN (09:59)
[2024-05-01] MEDS: CHOLECALCIFEROL 25 MCG (1000 UNITS) TAB PO SCH (08:44)
[2024-05-01] MEDS: cloNIDine HCL 0.1 MG TAB PO SCH (08:45)
[2024-05-01 17:48] LABS: Marijuana Quant, GCMS Urine 976 ng/mL (<5)
--- NOTE | 2024-05-01 18:36 | Psychiatric Progress Note ---
Date of Service May 01, 2024 Impression / Recommendations Impression HIWOT WILSON is a 48-year-old man who currently lives in [facility] in [facility], has a history of PTSD, bipolar disorder (he's unsure about this diagnosis, no clear hx of rogelio), depression, anxiety, social anxiety, and polysubstance use disorder and was admitted on 04/28/24 22:35 on a 201 voluntary commitment for SI with plan of overdosing on Visine and attempt of ingesting a bottle of Visine a week ago. Diagnostically consistent with unspecified depression with differential including major depressive disorder vs substance-induced vs bipolar depression vs adjustment disorder due to new legal charges/upcoming anticipation of extended incarceration as well as ANDREA with panic attacks and polysubstance use disorder. A: Ongoing depression and anxiety but slept a bit better with mirtazapine. At this point ok to continue with Seroquel but ideally over time, as his sleep improves, could transition to an alternative mood stabilizer with fewer metabolic side effects such as [place]. Discussed and reviewed his mood disorder questionnaire which is consistently with likely bipolar affective disorder type II as he identified multiple hypomanic symptoms in the past. Discussed medication treatment options for anxiety. Discussed risks, benefits and alternatives. Patient would like to start and consented to clonidine for off- label use for anxiety. Reviewed side effects including but not limited to low BP and syncope and especially when combined with another BP lowering agent since he is also on propranolol. He understands this and would like to try clonidine in addition to propranolol and his other medications. He is agreeable to adding Vit D supplementation. He's thinking more about residential substance use treatment. Overall, I spent a total of 35 minutes on this case including meeting with the patient, reviewing the chart, nursing report, multidisciplinary team meeting, orders, and documentation. (1) Major depression, recurrent: (2) Suicide attempt: (3) Generalized anxiety disorder with panic attacks: (4) Polysubstance use disorder: (5) HIV (human immunodeficiency virus infection): (6) Legal problem: Plan 05/01/24: Continue current medication, level of observation. 04/30/2024: -Start Vit D supplement -Trial of clonidine 0.1mg qAM tomorrow 04/29/2024: The patient was admitted to the [facility] ([facility]) on q15 min checks (behavioral with suicide precautions) for safety. The patient will participate in group, recreational, and milieu therapies and will be offered additional individual and family sessions as clinically appropriate. -Medications: * Start mirtazapine 15mg HS * Continue Seroquel 200mg HS * Continue Effexor XR 225mg daily * Buspar 15mg BID * Propranolol 20mg BID -Labwork: * HbA1c, fasting lipid panel, Vit D -Questionnaires: * Mood Disorder Q to clarify possible hx of rogelio/hypomania Inventory Assets Strengths: supportive relationships, willing to get treatment Needs: safety and stabilization, medication adjustment, additional coping skills, increased outpatient services Suicide Risk Level Suicide Risk Level: High-Moderate (q15 min suicide checks) (recent suicide attempt without help seeking behaviors initially, ongoing depression and SI but feels safe in the hospital and feels able to ask for support if needed) Suicide Risk Level Comments: High-Moderate due to severe depression with SI with plan prior to admission but feels safe in the hospital, able to safety contract and agrees to let nursing/staff know should they develop plan, intent or feel unable to remain safe. Risk Factors Assessment Male: Yes Do You Have Access To A Gun?: No Health Problems: Yes Mental Health Diagnoses: Yes Substance Use Disorders: Yes Previous Attempt: Yes Family History of Suicide: No Previous Psychiatric Hospitalization: Yes Hopelessness: Yes Protective Factors Assessment Employed: No Stable Relationships: Yes Supportive Family: Yes (mom) Interval History Identifying Information HIWOT WISLON is a 48-year-old man who currently lives in [facility] in [facility], has a history of PTSD, bipolar disorder (he's unsure about this diagnosis, no clear hx of rogelio), depression, anxiety, social anxiety, and polysubstance use disorder and was admitted on 04/28/24 22:35 on a 201 voluntary commitment for SI with plan of overdosing on Visine and attempt of ingesting a bottle of Visine a week ago. Chief Complaint "[feels up and down and on an emotional rollercoaster]". Review of Systems Sleep Information Total Hours of Sleep: 7.25 Meal Information Percent Meal Consumed - Breakfast: 100 Percent Meal Consumed - Lunch: 100 Percent Meal Consumed - Dinner: 50 Subjective Subjective Patient was seen & assessed and interval progress reviewed with nursing and social work. He reports still feeling depressed and anxious in the context of his upcoming court case. He fears being sent back to intermediate. 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 Currently on Effexor, Propranolol, Seroquel and Mirtazapine and Clonidine. Also taking Vistaril prns for BP and Anxiety. Slept 8 hrs last night. He is anticipating a visit with his family today. Denied SI today, some passing thoughts. PMH of HTN, HIV +. BP is currently high. HIV injection Cabenuva on 05/05/24. Physical Exam Psychiatric Orientation: alert and oriented x 3 Apperance: appropriately dressed and appropriately groomed Eye Contact: good eye contact Motor Behavior: no abnormal motor movements Speech: normal rate/rhythm/volume of speech Affect: + depressed affect, + anxious affect and + constricted affect Mood: + depressed mood and + anxious mood Thought Process: goal directed thought process Thought Content: reality based without delusions Suicidal Thoughts: denies suicidal intent; + reports suicidal thoughts and + reports suicidal plan (none for here, outside hospital to overdose/poisoning with antifreeze) Homicidal Thoughts: denies homicidal thoughts Hallucinations: no auditory hallucinations and no visual hallucinations Cognition: recent memory grossly intact, remote memory grossly intact, attention grossly intact and language grossly intact Estimated Intelligence: consistent with education level Insight: + fair insight Judgment: + limited judgement and + fair judgement Vital Signs (Past 24 Hours) Last Vital Signs Temp 36.5 C 05/01/24 06:25 Pulse 80 05/01/24 06:27 Resp 16 05/01/24 06:25 BP 114/81 05/01/24 06:27 Pulse Ox 97 04/30/24 20:38 O2 Del Method Room Air 04/30/24 20:38 [facility] Laboratory Results Laboratory Results - last 24 hr 04/28/24 17:28 U Marijuana THC Carboxy 976 H Drug Screen Comment SEE NOTE Current Inpatient Medications Current Inpatient Medications: Current Inpatient Medications Al Hydrox/Mg Hydrox/Simethicone (Aluminum/Magnesium Susp 30 Ml Udc) 30 ml PO Q4H PRN PRN Reason: GI Upset Stop: 05/28/24 22:46 Bismuth Subsalicylate (Bismuth Subsalicylate 262 Mg Chew) 2 tab PO Q30M PRN PRN Reason: Loose Stool/Diarrhea Stop: 05/28/24 22:46 Buspirone HCl (Buspirone 15 Mg Tab) 15 mg PO BID BARBARA Stop: 05/29/24 08:59 Last Admin: 05/01/24 08:44 Dose: 15 mg Clonidine HCl (Clonidine Hcl 0.1 Mg Tab) 0.1 mg PO QAM BARBARA Stop: 05/31/24 08:59 Last Admin: 05/01/24 08:45 Dose: 0.1 mg Hydroxyzine HCl (Hydroxyzine Hcl 25 Mg Tab) 50 mg PO HSZ PRN PRN Reason: Insomnia Stop: 05/28/24 22:46 Last Admin: 04/28/24 23:08 Dose: 50 mg Hydroxyzine HCl (Hydroxyzine Hcl 25 Mg Tab) 25 mg PO Q4H PRN PRN Reason: Anxiety Stop: 05/28/24 22:46 Last Admin: 05/01/24 15:23 Dose: 25 mg Magnesium Hydroxide (Magnesium Hydroxide Susp 30 Ml Udc) 30 ml PO DAILY PRN PRN Reason: Constipation Stop: 05/28/24 22:46 Mirtazapine (Mirtazapine Tab 15 Mg Tab) 15 mg PO HS BARBARA Stop: 05/29/24 21:59 Last Admin: 04/30/24 21:01 Dose: 15 mg Pantoprazole Sodium (Pantoprazole 40 Mg Tab) 40 mg PO BID BARBARA Stop: 05/29/24 08:59 Last Admin: 05/01/24 08:45 Dose: 40 mg Propranolol HCl (Propranolol Hcl 20 Mg Tab) 20 mg PO BID BARBARA Stop: 05/29/24 08:59 Last Admin: 05/01/24 08:46 Dose: 20 mg Quetiapine Fumarate (Quetiapine Fumarate 200 Mg Tab) 200 mg PO HS BARBARA Stop: 05/29/24 21:59 Last Admin: 04/30/24 21:01 Dose: 200 mg Sodium Chloride (Sodium Chloride 0.65% Na Soln 45 Ml ([place])) 1 - 2 sprays NA PRN PRN PRN Reason: Nasal Dryness/Congestion Stop: 05/28/24 22:46 Venlafaxine HCl (Venlafaxine Hcl Xr 75 Mg Capxr) 225 mg PO QAM BARBARA Stop: 05/29/24 08:59 Last Admin: 05/01/24 08:46 Dose: 225 mg Vitamin D (Cholecalciferol 25 Mcg (1000 Units) Tab) 25 mcg PO QAM BARBARA Stop: 05/31/24 08:59 Last Admin: 05/01/24 08:44 Dose: 25 mcg Mental Health & Subst Abuse Tx Psychiatrist Name of Psychiatrist: [place] [id number] Psychiatrist's Psychiatric Appointment Comment: They will call to notify of appointment date/time Therapist Name of Therapist: [place] [id number] Therapist's Date of Therapist Appointment: 05/06/24 Time of Therapist Appointment: 1PM Therapy Appointment Comment: In person Post Discharge Appointments Primary Care Physician Name Of Family Doctor/PCP: Benoit Che @ [facility] Contact Information Discharge Discharge Address: [address] [place] [id number] (1) Major depression, recurrent Active/Remission status: currently active Major depression episode severity: severe Psychotic features: without psychotic features Qualified Code(s): F33.2 - Major depressive disorder, recurrent severe without psychotic features
--- NOTE | 2024-05-02 08:22 | Psychiatric Progress Note ---
Date of Service May 02, 2024 Impression / Recommendations Impression HIWOT WILSON is a 48-year-old man who [facility] in [facility], has a history of PTSD, possible Bipolar II disorder (per reported findings from MDQ), depression, anxiety, social anxiety, and polysubstance use disorder and was admitted on 04/28/24 22:35 on a 201 voluntary commitment for SI with plan of overdosing on Visine and attempt of ingesting a bottle of Visine a week ago. Diagnostically consistent with unspecified depression with differential including major depressive disorder vs substance-induced vs bipolar depression vs adjustment disorder due to new legal charges/upcoming anticipation of extended incarceration as well as ANDREA with panic attacks and polysubstance use disorder. A: Plan is to continue with Seroquel with plan to consider transition to an alternative mood stabilizer with fewer metabolic side effects such as [place]. Clonidine was discussed earlier during this admission. For now, will optimize Buspar and track response. Overall, I spent a total of 30 minutes on this case including meeting with the patient, reviewing the chart, nursing report, multidisciplinary team meeting, orders, and documentation. (1) Major depression, recurrent: (2) Suicide attempt: (3) Generalized anxiety disorder with panic attacks: (4) Polysubstance use disorder: (5) HIV (human immunodeficiency virus infection): (6) Legal problem: Plan 05/02/24: -Increase Buspar to 20mg bid for better control of anxiety. -Reviewed current medication; no side effects. Keep in mind option of adding clonidine if Buspar increase is ineffective. - Encouraged pt to consider rehab given his recent relapse and current stressors which increase the chances of continued use post-discharge. He appears more open to this at this time. 05/01/24: Continue current medication, level of observation. 04/30/2024: -Start Vit D supplement -Trial of clonidine 0.1mg qAM tomorrow 04/29/2024: The patient was admitted to the [facility] ([facility] mental health unit) on q15 min checks (behavioral with suicide precautions) for safety. The patient will participate in group, recreational, and milieu therapies and will be offered additional individual and family sessions as clinically appropriate. -Medications: * Start mirtazapine 15mg HS * Continue Seroquel 200mg HS * Continue Effexor XR 225mg daily * Buspar 15mg BID * Propranolol 20mg BID -Labwork: * HbA1c, fasting lipid panel, Vit D -Questionnaires: * Mood Disorder Q to clarify possible hx of rogelio/hypomania Inventory Assets Strengths: supportive relationships, willing to get treatment Needs: safety and stabilization, medication adjustment, additional coping skills, increased outpatient services Suicide Risk Level Suicide Risk Level: High-Moderate (q15 min suicide checks) (recent suicide attempt without help seeking behaviors initially, ongoing depression and SI but feels safe in the hospital and feels able to ask for support if needed) Suicide Risk Level Comments: High-Moderate due to severe depression with SI with plan prior to admission but feels safe in the hospital, able to safety contract and agrees to let nursi ng/staff know should they develop plan, intent or feel unable to remain safe. Risk Factors Assessment Male: Yes Do You Have Access To A Gun?: No Health Problems: Yes Mental Health Diagnoses: Yes Substance Use Disorders: Yes Previous Attempt: Yes Family History of Suicide: No Previous Psychiatric Hospitalization: Yes Hopelessness: Yes Protective Factors Assessment Employed: No Stable Relationships: Yes Supportive Family: Yes (mom) Interval History Identifying Information HIWOT WILSON is a 48-year-old man who currently lives [facility] in [facility]. He has a history of PTSD, bipolar disorder (although there is no clear hx of rogelio), depression, anxiety, social anxiety, and polysubstance use disorder. He was admitted on 04/28/24 22:35 on a 201 voluntary commitment for SI with plan of overdosing on Visine and attempt of ingesting a bottle of Visine a week ago. Chief Complaint "I am still a bit anxious". Review of Systems Sleep Information Total Hours of Sleep: 6 Meal Information Percent Meal Consumed - Breakfast: 100 Percent Meal Consumed - Lunch: 100 Percent Meal Consumed - Dinner: 50 Subjective Subjective Patient was seen & assessed and interval progress reviewed with nursing and social work. Visit with partner yesterday went well. Discussed his ambivalence about attending rehab. He used meth once on 04/14/24. Prior to that was huffing air duster in Jan and Feb 2024. Still quite anxious about his possible sentencing. Attending groups. Rated mood 4/10. Out of his room, supportive of peers. Got a dose of Vistaril around 1520 yesterday. No additional Prns the rest of the day. Slept 6 hours. Explored history of bipolar disorder. He reports episodes of excessive spending (has 7 credit cards, all maxed out), hypersexuality. Denied grandiosity, irritability. States he completed the MDQ with Dr. Lo and was advised he may have Bipolar Type II. At this time, he describes his mood as being "up and down" - he frequently gets anxious about his upcoming hearing, which makes him sad. Denied currently having nightmares or flashbacks. Physical Exam Psychiatric Orientation: alert and oriented x 3 Apperance: appropriately dressed and appropriately groomed Eye Contact: good eye contact Motor Behavior: no abnormal motor movements Speech: normal rate/rhythm/volume of speech Affect: + depressed affect, + anxious affect and + constricted affect Mood: + depressed mood and + anxious mood Thought Process: goal directed thought process Thought Content: reality based without delusions Suicidal Thoughts: denies suicidal thoughts, denies suicidal plan and denies suicidal intent Homicidal Thoughts: denies homicidal thoughts Hallucinations: no auditory hallucinations and no visual hallucinations Cognition: recent memory grossly intact, remote memory grossly intact, attention grossly intact and language grossly intact Estimated Intelligence: consistent with education level Insight: + fair insight Judgment: + limited judgement and + fair judgement Vital Signs (Past 24 Hours) Last Vital Signs Temp 36.7 C 05/02/24 06:23 Pulse 76 05/02/24 06:23 Resp 16 05/02/24 06:23 BP 113/71 05/02/24 06:23 Pulse Ox 97 04/30/24 20:38 O2 Del Method Room Air 04/30/24 20:38 Results & Data ([facility]) Laboratory Results Laboratory Results - last 24 hr 04/28/24 17:28 U Marijuana THC Carboxy 976 H Drug Screen Comment SEE NOTE Current Inpatient Medications Current Inpatient Medications: Current Inpatient Medications Al Hydrox/Mg Hydrox/Simethicone (Aluminum/Magnesium Susp 30 Ml Udc) 30 ml PO Q4H PRN PRN Reason: GI Upset Stop: 05/28/24 22:46 Bismuth Subsalicylate (Bismuth Subsalicylate 262 Mg Chew) 2 tab PO Q30M PRN PRN Reason: Loose Stool/Diarrhea Stop: 05/28/24 22:46 Buspirone HCl (Buspirone 15 Mg Tab) 15 mg PO BID BARBARA Stop: 05/29/24 08:59 Last Admin: 05/01/24 21:02 Dose: 15 mg Clonidine HCl (Clonidine Hcl 0.1 Mg Tab) 0.1 mg PO QAM BARBARA Stop: 05/31/24 08:59 Last Admin: 05/01/24 08:45 Dose: 0.1 mg Hydroxyzine HCl (Hydroxyzine Hcl 25 Mg Tab) 50 mg PO HSZ PRN PRN Reason: Insomnia Stop: 05/28/24 22:46 Last Admin: 04/28/24 23:08 Dose: 50 mg Hydroxyzine HCl (Hydroxyzine Hcl 25 Mg Tab) 25 mg PO Q4H PRN PRN Reason: Anxiety Stop: 05/28/24 22:46 Last Admin: 05/01/24 15:23 Dose: 25 mg Magnesium Hydroxide (Magnesium Hydroxide Susp 30 Ml Udc) 30 ml PO DAILY PRN PRN Reason: Constipation Stop: 05/28/24 22:46 Mirtazapine (Mirtazapine Tab 15 Mg Tab) 15 mg PO HS BARBARA Stop: 05/29/24 21:59 Last Admin: 05/01/24 21:03 Dose: 15 mg Pantoprazole Sodium (Pantoprazole 40 Mg Tab) 40 mg PO BID BARBARA Stop: 05/29/24 08:59 Last Admin: 05/01/24 21:02 Dose: 40 mg Propranolol HCl (Propranolol Hcl 20 Mg Tab) 20 mg PO BID BARBARA Stop: 05/29/24 08:59 Last Admin: 05/01/24 21:02 Dose: 20 mg Quetiapine Fumarate (Quetiapine Fumarate 200 Mg Tab) 200 mg PO HS BARBARA Stop: 05/29/24 21:59 Last Admin: 05/01/24 21:03 Dose: 200 mg Sodium Chloride (Sodium Chloride 0.65% Na Soln 45 Ml ([place])) 1 - 2 sprays NA PRN PRN PRN Reason: Nasal Dryness/Congestion Stop: 05/28/24 22:46 Venlafaxine HCl (Venlafaxine Hcl Xr 75 Mg Capxr) 225 mg PO QAM BARBARA Stop: 05/29/24 08:59 Last Admin: 05/01/24 08:46 Dose: 225 mg Vitamin D (Cholecalciferol 25 Mcg (1000 Units) Tab) 25 mcg PO QAM BARBARA Stop: 05/31/24 08:59 Last Admin: 05/01/24 08:44 Dose: 25 mcg Mental Health & Subst Abuse Tx Psychiatrist Name of Psychiatrist: [place] [id number] Psychiatrist's Psychiatric Appointment Comment: They will call to notify of appointment date/time Therapist Name of The[place]ist: [place] [id number] Therapist's Date of Therapist Appointment: 05/06/24 Time of Therapist Appointment: 1PM Therapy Appointment Comment: In person Post Discharge Appointments Primary Care Physician Name Of Family Doctor/PCP: Benoit Che @ [facility] Contact Information Discharge Discharge Address: [address] [place] [id number] (1) Major depression, recurrent Active/Remission status: currently active Major depression episode severity: severe Psychotic features: without psychotic features Qualified Code(s): F33.2 - Major depressive disorder, recurrent severe without psychotic features
[2024-05-02] MEDS: busPIRone 5 MG TAB PO SCH (20:57)
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
--- NOTE | 2024-05-04 08:44 | Psychiatric Progress Note ---
Date of Service May 04, 2024 Impression / Recommendations Impression HIWOT WILSON is a 48-year-old man who [facility] in [facility], has a history of PTSD, possible Bipolar II disorder (per MDQ), depression, anxiety, social anxiety, and polysubstance use disorder and was admitted on 04/28/24 22:35 on a 201 voluntary commitment for SI with plan of overdosing on Visine and attempt of ingesting a bottle of Visine a week ago. Diagnostic differentials include major depressive disorder vs substance-induced vs bipolar depression vs adjustment disorder due to new legal charges/upcoming anticipation of extended incarceration as well as ANDREA with panic attacks and polysubstance use disorder. A: Discontinue Propanolol and increase Clonidine to 0.1mg bid for anxiety. Consider increasing Venlafaxine to 300mg daily given persistence of anxiety. Overall, I spent a total of 35 minutes on this case including meeting with the patient, reviewing the chart, nursing report, multidisciplinary team meeting, orders, and documentation. (1) Major depression, recurrent: (2) Suicide attempt: (3) Generalized anxiety disorder with panic attacks: (4) Polysubstance use disorder: (5) HIV (human immunodeficiency virus infection): (6) Legal problem: Plan 05/04/24: Discontinue Propanolol and increase Clonidine to 0.1mg bid for anxiety. Consider increasing Venlafaxine to 300mg daily given persistence of anxiety. 05/03/24: Continue medication at current doses. Encouraged to use non-pharmacological interventions for anxiety, such as journaling, coloring, light exercise. Discharge planning. 05/02/24: -Increase Buspar to 20mg bid for better control of anxiety. -Reviewed current medication; no side effects. Keep in mind option of adding clonidine if Buspar increase is ineffective. - Encouraged pt to consider rehab given his recent relapse and current stressors which increase the chances of continued use post-discharge. He appears more open to this at this time. 05/01/24: Continue current medication, level of observation. 04/30/2024: -Start Vit D supplement -Trial of clonidine 0.1mg qAM tomorrow 04/29/2024: The patient was [facility] ([facility]) on q15 min checks (behavioral with suicide precautions) for safety. The patient will participate in group, recreational, and milieu therapies and will be offered additional individual and family sessions as clinically appropriate. -Medications: * Start mirtazapine 15mg HS * Continue Seroquel 200mg HS * Continue Effexor XR 225mg daily * Buspar 15mg BID * Propranolol 20mg BID -Labwork: * HbA1c, fasting lipid panel, Vit D -Questionnaires: * Mood Disorder Q to clarify possible hx of rogelio/hypomania * * Inventory Assets Strengths: supportive relationships, willing to get treatment Needs: safety and stabilization, medication adjustment, additional coping skills, increased outpatient services Suicide Risk Level Suicide Risk Level: Moderate (q15 min suicide checks) (recent suicide attempt without help seeking behaviors initially, ongoing depression and SI but feels safe in the hospital and feels able to ask for support if needed) Suicide Risk Level Comments: Reports continued anxiety. However, mood is improved, he feels safe in the hospital, able to safety contract and agrees to let nursing/staff know should they develop/implement safety interventions if SI increases Risk Factors Assessment Male: Yes Do You Have Access To A Gun?: No Health Problems: Yes Mental Health Diagnoses: Yes Substance Use Disorders: Yes Previous Attempt: Yes Family History of Suicide: No Previous Psychiatric Hospitalization: Yes Hopelessness: Yes Protective Factors Assessment Employed: No Stable Relationships: Yes Supportive Family: Yes (mom) Interval History Identifying Information HIWOT WILSON is a 48-year-old man who currently lives [facility] in [facility]. He has a history of PTSD, bipolar disorder (although there is no clear hx of rogelio), depression, anxiety, social anxiety, and polysubstance use disorder. He was admitted on 04/28/24 22:35 on a 201 voluntary commitment for SI with plan of overdosing on Visine and attempt of ingesting a bottle of Visine a week ago. Chief Complaint "I am still anxious". Review of Systems Sleep Information Total Hours of Sleep: 7.5 Meal Information Percent Meal Consumed - Breakfast: 100 Percent Meal Consumed - Lunch: 100 Percent Meal Consumed - Dinner: 100 Subjective Subjective Patient was seen & assessed and interval progress reviewed with [treatment team] [nursing and social work] Was "emotionally drained" after a discussion related to his upcoming divorce. HIV meds admin was rescheduled (ordered yesterday). Hearing has been rescheduled to June 2024 and pt is now willing to go to rehab. No side effects from medication. BP has remained stable on combination of Pr opranolol and Clonidine. HIV meds ordered (non formulary) yesterday. He has a 7 day window to get it after due date (today). Physical Exam Psychiatric Orientation: alert and oriented x 3 Apperance: appropriately dressed and appropriately groomed Eye Contact: good eye contact Motor Behavior: no abnormal motor movements Speech: normal rate/rhythm/volume of speech Affect: + depressed affect, + anxious affect and + constricted affect Mood: + depressed mood and + anxious mood Thought Process: goal directed thought process Thought Content: reality based without delusions Suicidal Thoughts: denies suicidal thoughts, denies suicidal plan and denies suicidal intent Homicidal Thoughts: denies homicidal thoughts Hallucinations: no auditory hallucinations and no visual hallucinations Cognition: recent memory grossly intact, remote memory grossly intact, attention grossly intact and language grossly intact Estimated Intelligence: consistent with education level Insight: + fair insight Judgment: + limited judgement and + fair judgement Vital Signs (Past 24 Hours) Last Vital Signs Temp 36.5 C 05/04/24 06:24 Pulse 80 05/04/24 06:24 Resp 16 05/04/24 06:24 BP 112/67 05/04/24 06:24 Pulse Ox 97 04/30/24 20:38 O2 Del Method Room Air 04/30/24 20:38 Results & Data ([facility]) Current Inpatient Medications Current Inpatient Medications: Current Inpatient Medications Al Hydrox/Mg Hydrox/Simethicone (Aluminum/Magnesium Susp 30 Ml Udc) 30 ml PO Q4H PRN PRN Reason: GI Upset Stop: 05/28/24 22:46 Bismuth Subsalicylate (Bismuth Subsalicylate 262 Mg Chew) 2 tab PO Q30M PRN PRN Reason: Loose Stool/Diarrhea Stop: 05/28/24 22:46 Buspirone HCl (Buspirone 5 Mg Tab) 20 mg PO BID BARBARA Stop: 06/01/24 20:59 Last Admin: 05/04/24 08:07 Dose: 20 mg Clonidine HCl (Clonidine Hcl 0.1 Mg Tab) 0.1 mg PO QAM BARBARA Stop: 05/31/24 08:59 Last Admin: 05/04/24 08:06 Dose: 0.1 mg Hydroxyzine HCl (Hydroxyzine Hcl 25 Mg Tab) 50 mg PO HSZ PRN PRN Reason: Insomnia Stop: 05/28/24 22:46 Last Admin: 04/28/24 23:08 Dose: 50 mg Hydroxyzine HCl (Hydroxyzine Hcl 25 Mg Tab) 25 mg PO Q4H PRN PRN Reason: Anxiety Stop: 05/28/24 22:46 Last Admin: 05/03/24 17:42 Dose: 25 mg Magnesium Hydroxide (Magnesium Hydroxide Susp 30 Ml Udc) 30 ml PO DAILY PRN PRN Reason: Constipation Stop: 05/28/24 22:46 Mirtazapine (Mirtazapine Tab 15 Mg Tab) 15 mg PO HS BARBARA Stop: 05/29/24 21:59 Last Admin: 05/03/24 20:53 Dose: 15 mg Miscellaneous (Order Awaiting Action ~ [place]) 1 each N/A QS BARBARA Stop: 06/03/24 00:00 Pantoprazole Sodium (Pantoprazole 40 Mg Tab) 40 mg PO BID BARBARA Stop: 05/29/24 08:59 Last Admin: 05/04/24 08:06 Dose: 40 mg Propranolol HCl (Propranolol Hcl 20 Mg Tab) 20 mg PO BID BARBARA Stop: 05/29/24 08:59 Last Admin: 05/04/24 08:06 Dose: 20 mg Quetiapine Fumarate (Quetiapine Fumarate 200 Mg Tab) 200 mg PO HS BARBARA Stop: 05/29/24 21:59 Last Admin: 05/03/24 20:51 Dose: 200 mg Sodium Chloride (Sodium Chloride 0.65% Na Soln 45 Ml ([place])) 1 - 2 sprays NA PRN PRN PRN Reason: Nasal Dryness/Congestion Stop: 05/28/24 22:46 Venlafaxine HCl (Venlafaxine Hcl Xr 75 Mg Capxr) 225 mg PO QAM BARBARA Stop: 05/29/24 08:59 Last Admin: 05/04/24 08:06 Dose: 225 mg Vitamin D (Cholecalciferol 25 Mcg (1000 Units) Tab) 25 mcg PO QAM BARBARA Stop: 05/31/24 08:59 Last Admin: 05/04/24 08:06 Dose: 25 mcg Mental Health & Subst Abuse Tx Psychiatrist Name of Psychiatrist: Katie Urbina [facility], [place] [address] Psychiatrist's Psychiatric Appointment Comment: They will call to notify of appointment date/time Therapist Name of Therapist: [place] [id number] Therapist's Date of Therapist Appointment: 05/06/24 Time of Therapist Appointment: 1PM Therapy Appointment Comment: In person Post Discharge Appointments Primary Care Physician Name Of Family Doctor/PCP: Benoit Che @ [facility] Other #1: Name of Aftercare Appointment: [facility] Phone Number of Aftercare Appointment: Date of Aftercare Appointment: 05/11/24 Time of Aftercare Appointment: 11:30AM Aftercare Appointment Comment: Will be seeing Dr. Severino instead of Dr. Martinez Contact Information Discharge Discharge Address: [address] [place] [id number] (1) Major depression, recurrent Active/Remission status: currently active Major depression episode severity: severe Psychotic features: without psychotic features Qualified Code(s): F33.2 - Major depressive disorder, recurrent severe without psychotic features
[2024-05-04] MEDS: cloNIDine HCL 0.1 MG TAB PO SCH (21:07)
--- NOTE | 2024-05-05 08:45 | Psychiatric Progress Note ---
Date of Service May 05, 2024 Impression / Recommendations Impression HIWOT WILSON is a 48-year-old man who currently lives [place] [facility] [place] in [facility], has a history of PTSD, possible Bipolar II disorder (per MDQ), depression, anxiety, social anxiety, and polysubstance use disorder and was admitted on 04/28/24 22:35 on a 201 voluntary commitment for SI with plan of overdosing on Visine and attempt of ingesting a bottle of Visine a week ago. Diagnostic differentials include PTSD, major depressive disorder vs substance- induced vs bipolar depression vs adjustment disorder due to new legal charges/upcoming anticipation of extended incarceration as well as ANDREA with panic attacks and polysubstance use disorder. A: Continue Clonidine 0.1mg bid for anxiety. Increase Venlafaxine to 300mg daily given persistence of anxiety. Continue other meds. Overall, I spent a total of 30 minutes on this case including meeting with the patient, reviewing the chart, nursing report, multidisciplinary team meeting, orders, and documentation. (1) Major depression, recurrent: (2) Suicide attempt: (3) Generalized anxiety disorder with panic attacks: (4) Polysubstance use disorder: (5) HIV (human immunodeficiency virus infection): (6) Legal problem: Plan 05/05/24: Increase Venlafaxine to 300mg daily. Monitor mood given possible bipolar depression differential. Monitor BP. Continue other meds at current doses. Educated on sleep hygiene. Continue aftercare planning. 05/04/24: Discontinue Propanolol and increase Clonidine to 0.1mg bid for anxiety. Consider increasing Venlafaxine to 300mg daily given persistence of anxiety. 05/03/24: Continue medication at current doses. Encouraged to use non-pharmacological interventions for anxiety, such as journaling, coloring, light exercise. Discharge planning. 05/02/24: -Increase Buspar to 20mg bid for better control of anxiety. -Reviewed current medication; no side effects. Keep in mind option of adding clonidine if Buspar increase is ineffective. - Encouraged pt to consider rehab given his recent relapse and current stressors which increase the chances of continued use post-discharge. He appears more open to this at this time. 05/01/24: Continue current medication, level of observation. 04/30/2024: -Start Vit D supplement -Trial of clonidine 0.1mg qAM tomorrow 04/29/2024: The patient was admitted to the [facility] ([facility] mental health unit) on q15 min checks (behavioral with suicide precautions) for safety. The patient will participate in group, recreational, and milieu therapies and will be offered additional individual and family sessions as clinically appropriate. -Medications: * Start mirtazapine 15mg HS * Continue Seroquel 200mg HS * Continue Effexor XR 225mg daily * Buspar 15mg BID * Propranolol 20mg BID -Labwork: * HbA1c, fasting lipid panel, Vit D -Questionnaires: * Mood Disorder Q to clarify possible hx of rogelio/hypomania * * Inventory Assets Strengths: supportive relationships, willing to get treatment Needs: safety and stabilization, medication adjustment, additional coping skills, increased outpatient services Suicide Risk Level Suicide Risk Level: Moderate (q15 min suicide checks) (recent suicide attempt without help seeking behaviors initially, ongoing depression and SI but feels safe in the hospital and feels able to ask for support if needed) Suicide Risk Level Comments: Reports continued anxiety. However, mood is improved, he feels safe in the hospital, able to safety contract and agrees to let nursing/staff know should they develop/implement safety interventions if SI increases Risk Factors Assessment Male: Yes Do You Have Access To A Gun?: No Health Problems: Yes Mental Health Diagnoses: Yes Substance Use Disorders: Yes Previous Attempt: Yes Family History of Suicide: No Previous Psychiatric Hospitalization: Yes Hopelessness: Yes Protective Factors Assessment Employed: No Stable Relationships: Yes Supportive Family: Yes (mom) Interval History Identifying Information HIWOT WILSON is a 48-year-old man who currently lives [facility] in [facility]. He has a history of PTSD, bipolar disorder (MDQ screen was positive on admission), depression, anxiety, social anxiety, and polysubstance use disorder. He was admitted on 04/28/24 22:35 on a 201 voluntary commitment for SI with plan of overdosing on Visine and attempt of ingesting a bottle of Visine a week ago. Chief Complaint "[]". Review of Systems Sleep Information Total Hours of Sleep: 6.25 Meal Information Percent Meal Consumed - Breakfast: 100 Percent Meal Consumed - Lunch: 75 Percent Meal Consumed - Dinner: 75 Subjective Subjective Patient was seen & assessed and interval progress reviewed with treatment team. Seen out on the unit, participating in treatment. Planning for rehab in process. Challenging because of his insurance (Medicare). He is awaiting a callback from [facility] regarding this. No side effects from Clonidine. BP was 92/62 this am. Now 143/92, DC 89 (140/90 on admission). No orthostatic symptoms. Hydroxyzine had been helping but didn't help yesterday. He wants to avoid a tid dosing regimen as he typically forgets the midday dose. Mood is still anxious. Not depressed. No SI He reports middle insomnia the past 2 nights. Since arriving on the unit, he has been falling asleep almost immediately (within 5 minutes). Before then, he had had longstanding initial insomnia. Seroquel seems to have helped. Physical Exam Psychiatric Orientation: alert and oriented x 3 Apperance: appropriately dressed and appropriately groomed Eye Contact: good eye contact Motor Behavior: no abnormal motor movements Speech: normal rate/rhythm/volume of speech Affect: + depressed affect, + anxious affect and + constricted affect Mood: + depressed mood and + anxious mood Thought Process: goal directed thought process Thought Content: reality based without delusions Suicidal Thoughts: denies suicidal thoughts, denies suicidal plan and denies suicidal intent Homicidal Thoughts: denies homicidal thoughts Hallucinations: no auditory hallucinations and no visual hallucinations Cognition: recent memory grossly intact, remote memory grossly intact, attention grossly intact and language grossly intact Estimated Intelligence: consistent with education level Insight: + fair insight Judgment: + limited judgement and + fair judgement Vital Signs (Past 24 Hours) Last Vital Signs Temp 36.5 C 05/05/24 06:19 Pulse 76 05/05/24 06:20 Resp 18 05/05/24 06:19 BP 92/62 L 05/05/24 06:20 Pulse Ox 96 05/04/24 20:30 O2 Del Method Room Air 05/04/24 20:30 Results & Data (U) Current Inpatient Medications Current Inpatient Medications: Current Inpatient Medications Al Hydrox/Mg Hydrox/Simethicone (Aluminum/Magnesium Susp 30 Ml Udc) 30 ml PO Q4H PRN PRN Reason: GI Upset Stop: 05/28/24 22:46 Bismuth Subsalicylate (Bismuth Subsalicylate 262 Mg Chew) 2 tab PO Q30M PRN PRN Reason: Loose Stool/Diarrhea Stop: 05/28/24 22:46 Buspirone HCl (Buspirone 5 Mg Tab) 20 mg PO BID BARBARA Stop: 06/01/24 20:59 Last Admin: 05/04/24 21:06 Dose: 20 mg Clonidine HCl (Clonidine Hcl 0.1 Mg Tab) 0.1 mg PO BID BARBARA Stop: 06/03/24 20:59 Last Admin: 05/04/24 21:07 Dose: 0.1 mg Hydroxyzine HCl (Hydroxyzine Hcl 25 Mg Tab) 50 mg PO HSZ PRN PRN Reason: Insomnia Stop: 05/28/24 22:46 Last Admin: 05/04/24 21:06 Dose: 50 mg Hydroxyzine HCl (Hydroxyzine Hcl 25 Mg Tab) 25 mg PO Q4H PRN PRN Reason: Anxiety Stop: 05/28/24 22:46 Last Admin: 05/04/24 12:20 Dose: 25 mg Magnesium Hydroxide (Magnesium Hydroxide Susp 30 Ml Udc) 30 ml PO DAILY PRN PRN Reason: Constipation Stop: 05/28/24 22:46 Mirtazapine (Mirtazapine Tab 15 Mg Tab) 15 mg PO HS BARBARA Stop: 05/29/24 21:59 Last Admin: 05/04/24 21:06 Dose: 15 mg Miscellaneous (Order Awaiting Action ~ Vivianuvkira) 1 each N/A QS BARBARA Stop: 06/03/24 00:00 Last Admin: 05/05/24 07:55 Dose: Not Given Pantoprazole Sodium (Pantoprazole 40 Mg Tab) 40 mg PO BID BARBARA Stop: 05/29/24 08:59 Last Admin: 05/04/24 21:06 Dose: 40 mg Quetiapine Fumarate (Quetiapine Fumarate 200 Mg Tab) 200 mg PO HS BARBARA Stop: 05/29/24 21:59 Last Admin: 05/04/24 21:06 Dose: 200 mg Sodium Chloride (Sodium Chloride 0.65% Na Soln 45 Ml ([place])) 1 - 2 sprays NA PRN PRN PRN Reason: Nasal Dryness/Congestion Stop: 05/28/24 22:46 Venlafaxine HCl (Venlafaxine Hcl Xr 75 Mg Capxr) 225 mg PO QAM BARBARA Stop: 05/29/24 08:59 Last Admin: 05/04/24 08:06 Dose: 225 mg Vitamin D (Cholecalciferol 25 Mcg (1000 Units) Tab) 25 mcg PO QAM BARBARA Stop: 05/31/24 08:59 Last Admin: 05/04/24 08:06 Dose: 25 mcg Mental Health & Subst Abuse Tx Psychiatrist Name of Psychiatrist: [place] [id number] Psychiatrist's Psychiatric Appointment Comment: They will call to notify of appointment date/time Therapist Name of The[place]ist: [place] [id number] Therapist's Date of Therapist Appointment: 05/06/24 Time of Therapist Appointment: 1PM Therapy Appointment Comment: In person Post Discharge Appointments Primary Care Physician Name Of Family Doctor/PCP: Benoit Che @ [facility] Contact Information Discharge Discharge Address: [address] [place] [phone] (1) Major depression, recurrent Active/Remission status: currently active Major depression episode severity: severe Psychotic features: without psychotic features Qualified Code(s): F33.2 - Major depressive disorder, recurrent severe without psychotic features
[2024-05-05 21:03] VITALS: O2SAT 95
[2024-05-06 06:39] VITALS: BP 101/72; RESP 16; TEMP 97.9
[2024-05-06] MEDS: VENLAFAXINE HCL XR 150 MG CAPXR PO SCH (08:04)
[2024-05-06] MEDS ORDERED: VENLAFAXINE HCL XR 150 MG CAPXR PO SCH (09:00)
--- NOTE | 2024-05-06 16:34 | Discharge Summary ---
Date of Service May 06, 2024 History of Present Illness He presents for psychiatric admission for worsening depression and recent attempt in the context of multiple psychosocial stressors including upcoming legal hearing related to substance use charges with potential detention time, recent relapses on inhalants and methamphetamine, and lack of privacy and other constraints of living at [facility]. He relapsed on duster use once in January and once in February. He relapsed on methamphetamine on after he was discharged from the hospital for a "two day binge". He feels his partner and being away from the long-term house made it difficult. Also notes it felt like because of the legal charges and feeling that upcoming detention is inevitable "why not get high". Being back at [facility] has helped him from using any substances since then but his depression has continued to worsen. He endorses depressive symptoms including anhedonia, decreased motivation, self- guilt, helplessness, hopelessness, decreased energy, appetite varies (a lot of nausea and emesis recently, but able to eat here in the hospital), has lost weight in the last month, and decreased sleep with frequent panic attacks. SI has been occurring "all the time" over the last few weeks. He's been researching ways to on internet like antifreeze since he discharged from the hospital so he estimates for about the last 1-2 weeks. He also recently tried to by ingesting a bottle Visine last week but didn't disclose this until last night. He's ambivalent about being alive "I just don't want to feel this way anymore". He also endorses symptoms of anxiety including generalized worries, shakiness, easily overwhelmed and panic attacks (5 per day on average). He is currently prescribed and has been taking psychiatric medications: Seroquel 200mg HS (helps a bit with sleep), Buspar 15mg BID, Effexor XR 225mg daily (has been on this for 2-3 years) and propranolol 20mg BID. He never picked up the abilify after his recent discharge noting he forgot to pick it up. Psychiatric ROS notable for no current nor history of symptoms of rogelio, psychosis, OCD nor eating disorder. History of PTSD, he feels a lot of his social stems from this and continues to have symptoms of this. Self-harming in the past by burning himself, not in >10 years. Physical Exam Psychiatric A+Ox3, euthymic affect Orientation: alert, oriented x 3 and cooperative Apperance: appropriately dressed, appropriately groomed and appeared stated age Eye Contact: good eye contact Motor Behavior: steady gait and station and no abnormal motor movements Speech: normal rate/rhythm/volume of speech Affect: + anxious affect Mood: + anxious mood Thought Process: goal directed thought process, linear/logical thought process and clear/coherent thought process Thought Content: + preoccupation Suicidal Thoughts: denies suicidal thoughts, denies suicidal plan and denies suicidal intent Homicidal Thoughts: denies homicidal thoughts, denies homicidal plan and denies homicidal intent Cognition: recent memory grossly intact, remote memory grossly intact, attention grossly intact and language grossly intact Estimated Intelligence: average estimated intelligence Insight: + fair insight Judgment: + fair judgement Vital Signs (Past 24 Hours) Last Vital Signs Temp 36.6 C 05/06/24 06:37 Pulse 88 05/06/24 06:38 Resp 16 05/06/24 06:37 BP 101/72 05/06/24 06:38 Pulse Ox 95 05/05/24 20:59 O2 Del Method Room Air 05/05/24 20:59 Principal Diagnosis PTSD Polysubstance Use Disorder Major Depressive Disorder Recurrent r/o Bipolar II Disorder. Psychiatric Data See daily stay summary. In short, safety was maintained and the patient was cooperative with care. Medication changes included [] and they tolerated this well. A family session was [held] and safety plan was completed prior to discharge. Day of Discharge Assessment Today the patient voices readiness for discharge. Although still anxious, he notes improvement in mood and deny thoughts to harm self or others. Thoughts remain organized and they are improved from admission. There is no evidence of psychosis. They agree to take mediations as prescribed and keep follow-up appointments. They are stable for discharge to outpatient level of care. Suicide risk assessment: Acute risk is low given improvement in mood and denial of SI, lack of access to lethal means, plan to avoid substance use, hopefulness. Chronic risk is moderate, given drug use, HIV diagnosis, history of trauma, multiple prior admissions, prior suicide attempts, current legal issues and multiple psychiatric and medical co-morbid diagnoses. Protective factors include being high levels of social support, engagement in treatment outpatient care in place, positive coping skills and capacity for self-observation. Transition of Care Transition Of Care Record: was reviewed with the patient Advance Directives Advance Directives Information Provided: Yes Advance Directives: No Mental Health Advance Directive: No Advance Directives on File: No Living Will: No Power of Service Engine Repairer: No Advance Directives Reason:: Declines as Mental Health Visit. Suicide Risk Level Suicide Risk Level: Low (q15 min observation checks) Suicide Risk Level Comments: No SI in several days. Risk Factors Assessment Male: Yes Do You Have Access To A Gun?: No Health Problems: Yes Mental Health Diagnoses: Yes Substance Use Disorders: Yes Previous Attempt: Yes Family History of Suicide: No Previous Psychiatric Hospitalization: Yes Hopelessness: Yes Protective Factors Assessment Employed: No Stable Relationships: Yes Supportive Family: Yes (mom) Antipsychotic Medications Mood stabilization. Total Time Total Time Spent: Greater Than 30 Minutes Discharge Data Lab Results 04/28/24 04/28/24 04/30/24 17:28 Unknown 07:47 WBC 8.83 RBC 4.25 L Hgb 14.2 Hct 40.4 L MCV 95.1 MCH 33.4 MCHC 35.1 RDW Std Deviation 45.6 RDW Coeff of [place]ub[place] 13.0 Plt Count 334 MPV 9.5 Immature Gran % (Auto) 0.2 Neut % (Auto) 63.5 Lymph % (Auto) 29.3 [place] % (Auto) 5.8 Eos % (Auto) 0.7 Baso % (Auto) 0.5 Neut # (Auto) 5.61 Lymph # (Auto) 2.59 [place] # (Auto) 0.51 Eos # (Auto) 0.06 Baso # (Auto) 0.04 Immature Gran # (Auto) 0.02 PT 10.8 INR 1.0 APTT 26 PTT Ratio 1.0 D-Dimer 370 Sodium 141 Potassium 3.6 Chloride 104 Carbon Dioxide 30 Anion Gap 7 BUN 14 Creatinine 0.96 Est Cr Clr Drug Dosing 94.1 eGFR 97.50 BUN/Creatinine Ratio 14.6 Glucose 103 H Estimat Average Glucose 117 Hemoglobin A1c 5.7 H Calcium 9.7 Total Bilirubin 0.4 AST 15 ALT 12 Alkaline Phosphatase 52 Troponin I High Sens < 2.3 Total Protein 7.3 Albumin 4.7 Globulin 2.6 Albumin/Globulin Ratio 1.8 Triglycerides 266 H Cholesterol 173 LDL Cholesterol, Calc 78 VLDL Cholesterol, Calc 53 H HDL Cholesterol 42 Cholesterol/HDL Ratio 4.1 25-OH Vitamin D Total 25.9 L TSH 0.367 Urine Color Dark Yellow Urine Appearance Cloudy A Urine pH 6.0 Ur Specific [place] 1.025 Urine Protein Trace H Urine Glucose (UA) Negative Urine Ketones 1+ H Urine Blood Negative Urine Nitrite Negative Urine Bilirubin Negative Urine Urobilinogen Negative Ur Leukocyte Esterase Negative Urine WBC (Auto) 6-10 H Urine RBC (Auto) 3-5 H U Hyaline Cast (Auto) 3-5 H U Epithel Cells (Auto) 0-2 Urine Bacteria (Auto) None Seen Calcium Oxalate Crystal Present A Urine Mucus Present A Salicylates < 3.0 L Urine Opiates Screen Neg Ur Methadone, Qual Neg Urine Fentanyl Screen Neg Acetaminophen < 3 L Urine Barbiturates Neg Ur Phencyclidine (PCP) Neg U Amphetamin/Meth Scrn Neg MDMA (Ecstasy) Screen Neg U Benzodiazepines Scrn Neg Ur Cocaine Metabolite Neg U Marijuana (THC) Screen Pos H U Marijuana THC Carboxy 976 H Drug Screen Comment SEE NOTE Ethyl Alcohol mg/dL < 10.0 SARS-CoV-2, RNA, NAAT NEGATIVE Hospital Course (1) Major depression, recurrent: (2) Suicide attempt: (3) Generalized anxiety disorder with panic attacks: (4) Polysubstance use disorder: (5) HIV (human immunodeficiency virus infection): (6) Legal problem: Plan 05/06/24: Discharge to [facility]. Pt will be transported there directly from this facility by [employer]. Prescriptions ordered x 30 days to [facility] Address: [address] [place], [place] [address] For insomnia, may take Melatonin 3-5mg po qhs. Also educated on sleep hygiene. 05/05/24: Increase Venlafaxine to 300mg daily. Monitor mood given possible bipolar depression differential. Monitor BP. Continue other meds at current doses. Educated on sleep hygiene. Continue aftercare planning. 05/04/24: Discontinue Propanolol and increase Clonidine to 0.1mg bid for anxiety. Consider increasing Venlafaxine to 300mg daily given persistence of anxiety. 05/03/24: Continue medication at current doses. Encouraged to use non-pharmacological interventions for anxiety, such as journaling, coloring, light exercise. Discharge planning. 05/02/24: -Increase Buspar to 20mg bid for better control of anxiety. -Reviewed current medication; no side effects. Keep in mind option of adding clonidine if Buspar increase is ineffective. - Encouraged pt to consider rehab given his recent relapse and current stressors which increase the chances of continued use post-discharge. He appears more open to this at this time. 05/01/24: Continue current medication, level of observation. 04/30/2024: -Start Vit D supplement -Trial of clonidine 0.1mg qAM tomorrow 04/29/2024: The patient was admitted to the [facility] ([facility] mental health unit) on q15 min checks (behavioral with suicide precautions) for safety. The patient will participate in group, recreational, and milieu therapies and will be o ffered additional individual and family sessions as clinically appropriate. -Medications: * Start mirtazapine 15mg HS * Continue Seroquel 200mg HS * Continue Effexor XR 225mg daily * Buspar 15mg BID * Propranolol 20mg BID -Labwork: * HbA1c, fasting lipid panel, Vit D -Questionnaires: * Mood Disorder Q to clarify possible hx of rogelio/hypomania Overall, I spent a total of 30 minutes on this case including meeting with the patient, reviewing the chart, nursing report, multidisciplinary team meeting, orders, and documentation. Mental Health & Subst Abuse Tx Psychiatrist Name of Psychiatrist: [place] [id number] Psychiatrist's Psychiatric Appointment Comment: They will call to notify of appointment date/time Therapist Name of Therap[place]: [place] [id number] Therapist's Date of Therapist Appointment: 05/06/24 Time of Therapist Appointment: 1PM Therapy Appointment Comment: In person Post Discharge Appointments Primary Care Physician Name Of Family Doctor/PCP: Benoit Che @ [facility] Contact Information Discharge Discharge Address: [address] [place] [address] Discharge Plan Discharge Items Patient Disposition: Drug & Alcohol Rehab Reason For Visit: MAJOR DEPRESSIVE DISORDER Discharge Diagnosis: PTSD Major Depressive Disorder recurrent severe r/o Bipolar II Disorder. Generalized Anxiety Disorder Social Anxiety Disorder Polysubstance Use Disorder. Condition on Discharge: Fair Health Concerns: Right hip pain History of total right hip replacement Greater trochanter fracture Encounter for pre-operative examination Esophageal dysphagia Esophageal candidiasis recently was taking fluconazole (finished in April 2022) -- reason for upcoming procedureGERD (gastroesophageal reflux disease) HIV (human immunodeficiency virus infection) (Chronic) Follows Dr. 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 Follow through with your scheduled aftercare appointments. If unable to keep an appointment, please call to reschedule. 2. Take your medication only as prescribed. Medication should not be changed or stopped without the approval of your doctor. In the event of worsening symptoms or concerns about side effects, contact your doctor immediately. 3. Utilize new healthy coping skills, anger management skills, and stress management skills learned during your hospitalization. Journal feelings and process them with a support person. Identify stressors or situations that may result in relapse, deterioration or inappropriate behaviors and develop a plan to deal with those issues. 4. If your coping skills are ineffective and you are in crisis, contact your outpatient providers for direction. If unable to reach your providers, please call the [facility] CRISIS LINE AT , go to the [facility] walk-in center at [address] [place] [address] [address], [place], or go to the closest Emergency Room. 5. Avoid alcohol and un-prescribed drugs. 6. You have been provided with the Mental Health Advance Directives Pamphlet for your review. 7. Your condition is stable for discharge to outpatient level of care, but recovery is an ongoing process. Ifthoughts to harm yourself or others return, follow the safety plan developed during your stay. Planning for a safe return home includes securing weapons. Our treatment team recommends weaponsbe removed from the home until your outpatient provider reassesses your progress. In rare cases where the items themselvescannot be removed, guns and ammunitionshould be secured separatelyand keys stored by a reliable personoutside of the home. If you were admitted on an involuntary commitment, the police or other legal authorities may be involved in this process. AFTERCARE APPOINTMENTS: * Please call your insurance company prior to your scheduled appointment to confirm your aftercare providers are covered. Take your insurance information to your appointments. WHO TO CALL AND WHEN: Medical Emergencies: For questions or emergencies related to your hospital stay, please contact the Inpatient Behavioral Health Unit at [phone]. A motion graphics designer is on-call 11/11 for the Behavioral Health Unit for emergencies At any time you feel your situation is an emergency, you may also call 911 im mediately. Pending Studies at Discharge: No Stand-Alone Forms: My [facility] Skilled Items Patient informed of condition?: Yes DNR: No Discharge Level of Care: Other Communicable Disease: Yes Discharge Prognosis: Improving Lines: None Urinary Catheter: No Medications and DC Order Prescriptions: New clonidine HCl 0.1 mg Tablet 0.1 mg PO BID 30 Days Qty: 60 0RF buspirone 5 mg Tablet 20 mg PO BID 30 Days Qty: 240 0RF hydroxyzine HCl 25 mg Tablet 50 mg PO HSZ PRN (Reason: insomnia) 30 Days Qty: 60 0RF mirtazapine 15 mg Tablet 15 mg PO HS 30 Days Qty: 30 0RF venlafaxine 150 mg Capsule,Extended Release 24hr 300 mg PO QAM 30 Days Qty: 60 0RF cholecalciferol (vitamin D3) 25 mcg (1,000 unit) Capsule 25 mcg PO QAM 30 Days Qty: 30 0RF Continued [place] 400 mg/2 mL- 600 mg/2 mL Suspension,Extended Release 2 ml IM [id number] Rx Instructions: CABOTEGRAVIR: Inject 2 mL (400 mg) intramuscularly once every 2 months; RILPIVIRINE: Inject 2 mL (600 mg) intramuscularly once every 2 months quetiapine [Seroquel] 200 mg Tablet 200 mg PO HS pantoprazole [Protonix] 40 mg tablet,delayed release (DR/EC) 40 mg PO BID Discontinued venlafaxine [Effexor XR] 150 mg capsule,extended release 24hr 225 mg PO QAM buspirone 15 mg Tablet 15 mg PO BID propranolol 20 mg Tablet 20 mg PO BID hydroxyzine HCl 25 mg Tablet 25 mg PO Q6H PRN (Reason: anxiety or sleep) Qty: 20 0RF aripiprazole [Abilify] 5 mg tablet 5 mg PO DAILY Qty: 30 1RF Discharge Orders: Discharge Order (Routine); Ordered 05/06/24 Ordered By: Meghan Tyler/Other Patient Handouts: Addiction Disease, Addiction Recovery Relapse Admission Data Admit Date/Time: 04/28/24 22:35 Attending Provider: Stephie Lo Admit Provider: Stephie Lo Primary Care Provider: Benoit Che Coding [place] [address] D/C day mgmt > 30 min Patient Type Established History Expanded Problem Focused Exam Expanded Problem Focused Medical Decision Making Moderate Complexity Diagnoses Severe episode of recurrent major depressive disorder, without psychotic features F33.2 Active/Remission status: currently active Major depression episode severity: severe Psychotic features: without psychotic features Suicide attempt [id number] Generalized anxiety disorder with panic attacks F41.1; F41.0 Polysubstance use disorder F19.90 HIV (human immunodeficiency virus infection) B20 Legal problem Z65.3 Time Spent (min) 30
[2024-05-06 16:42] VITALS: PULSE 83
== END 2024-05-06 17:25 | disposition alcohol treatment (31) | DRG 885 ==
LOC: ED 16:58 → 3S 22:35